=== PATIENT | female | born 1940 | race Caucasian/White ===

== ENCOUNTER → 2019-03-01 08:55 | Outpatient (CLI) | payer MEDICARE, SELFPAY ==
--- NOTE | 2019-03-01 09:10 | XR_ITS ---
XR DEXA axial skeleton HISTORY: ITS.REASON: H/O OSTEOPENIA ORDERING PHYSICIAN: Livia Armijo MD PATIENT AGE: 78 years COMPARISON: 01/01/2017 FINDINGS: The BMD measured at the Left femoral neck is 0.841 g/cm squared with a T score of -1.4. This is considered Osteopenic according to the World Health Organization criteria. Fracture risk is Moderate. Treatment is advised. The L1 L4 density has a T score of 0.2 and has decreased by 1.9%. The hip density has decreased by 1.1% IMPRESSION: Osteoporosis with moderate fracture risk. Recommend follow-up exam January 2021
== END ==
PROVIDERS: PCP Family Medicine; Visit Provider Family Medicine
DX: M81.0 Age-related osteoporosis without current pathological fracture (principal); M89.9 Disorder of bone, unspecified
CPT/HCPCS: 77080

== ENCOUNTER 2021-05-17 20:21 | Observation (INO) | payer MEDICARE, SELFPAY ==
[2021-05-17 20:15] VITALS: BP 114/69; PULSE 100; RESP 14; TEMP 36.9; O2SAT 94; BMI 31.2
--- NOTE | 2021-05-17 20:18 | ECG_ITS ---
APPROVED REPORT Exam: Resting ECG HR:90 bpm ECG Measurements Heart Rate 90 AXES MS 170 P 49 QRSd 100 QRS 13 QT 372 T 53 QTc 455 Conclusion Normal sinus rhythm Low voltage QRS Incomplete right bundle branch block Borderline ECG Electronically signed by : Jevon Tellez MD 05/19/2021 17:59:43
--- NOTE | 2021-05-17 20:29 | CT_ITS ---
PROCEDURE INFORMATION: Exam: CT Abdomen And Pelvis Without Contrast Exam date and time: 05/17/2021 8:29 PM Age: 80 years old Clinical indication: Vomiting and other: Bloody emesis; Prior surgery; Surgery date: 6+ months; Surgery type: Hysterectomy partial, gb, open heart; Additional info: Gi bleed TECHNIQUE: Imaging protocol: Computed tomography of the abdomen and pelvis without contrast. Radiation optimization: All CT scans at this facility use at least one of these dose optimization techniques: automated exposure control; mA and/or kV adjustment per patient size (includes targeted exams where dose is matched to clinical indication); or iterative reconstruction. COMPARISON: No relevant prior studies available. FINDINGS: Liver: Parenchymal enhancement is not evaluated without contrast. No hepatomegaly. Gallbladder and bile ducts: Post cholecystectomy change. Pancreas: Parenchymal enhancement is not evaluated without contrast. No ductal dilation. Spleen: Parenchymal enhancement is not evaluated without contrast. No splenomegaly. Adrenal glands: No mass. Kidneys and ureters: Parenchymal enhancement is not evaluated without contrast. No hydronephrosis. Stomach and bowel: Diverticulosis coli without evidence for diverticulitis. Appendix: No evidence of appendicitis. Intraperitoneal space: No free air. No significant fluid collection. Vasculature: Limited evaluation without contrast. No abdominal aortic aneurysm. Lymph nodes: No enlarged lymph nodes. Urinary bladder: No acute abnormality. Reproductive: Status post hysterectomy. Bones/joints: Degenerative changes of the spine. No fracture. Soft tissues: Limited evaluation without contrast. No significant soft tissue swelling. IMPRESSION: No acute findings. Incidental findings above.
[2021-05-17 20:39] LABS: Basophils # 0.2 K/mm3 (0-0.2); Basophils % 0.8 % (0.1-2.0); Eosinophils # 0.2 K/mm3 (0.0-0.4); Eosinophils % 0.6 % (0.1-12.0); Hematocrit 42.8 % (37.0-47.0); Hemoglobin 13.7 g/dL (12.2-16.2); Lymphocytes # 8.8 K/mm3 (0.7-4.5); Lymphocytes % 34.2 % (10-50); Mean Corpuscular HGB Conc 32.1 g/dL (31.8-35.4); Mean Corpuscular Hemoglobin 31.4 pg (27.0-31.2); Mean Corpuscular Volume 97.8 fl (81-99); Mean Platelet Volume 9.1 fl (7.4-10.4); Monocytes # 0.8 K/mm3 (0.1-1.0); Monocytes % 3.3 % (1.7-9.3); Neutrophils # 15.7 K/mm3 (1.8-7.8); Platelet Count 339 K/mm3 (142-424); Red Blood Count 4.38 M/mm3 (4.20-5.40); Red Cell Distribution Width 13.2 % (11.5-17.5)
[2021-05-17 20:40] LABS: Chloride 98 mmol/L (98-107); Potassium 4.2 mmoL/L (3.5-5.1); Sodium 134 mmol/L (136-145)
[2021-05-17 20:43] LABS: Alanine Aminotransferase 17 U/L (12-78); Albumin Level 4.1 g/dl (3.5-5.0); Albumin/Globulin Ratio 1.3 (1.1-1.8); Alkaline Phosphatase 87 U/L (38-126); Amylase 51 U/L (30-110); Anion Gap 20.2 mEq/L (5-15); Aspartate Amino Transferase 43 U/L (14-36); Bilirubin,Total 0.4 mg/dl (0.2-1.3); Blood Urea Nitrogen 42 mg/dl (7-17); Calcium 8.9 mg/dl (8.4-10.2); Carbon Dioxide 20 mmol/L (22.0-30.0); Creatinine Clearance Estimated 42 mL/min (50-200); Estimated Glomerular Filt Rate 39 ml/min (>60); GFR (African American) 48 ML/MIN (>60); Globulin 3.1 g/dL (1.3-3.2); Total Protein,Serum 7.2 g/dl (6.3-8.2)
[2021-05-17 20:44] LABS: MANUAL DIFFERENTIAL MANUAL DIFFERENTIAL (MANUAL DIFF); White Blood Count 25.8 K/mm3 (4.8-10.8)
[2021-05-17 20:45] LABS: Lipase 133 U/L (23-300)
[2021-05-17 20:47] LABS: Glucose 450 mg/dl (74-100)
[2021-05-17 20:48] LABS: Magnesium 1.9 mg/dl (1.6-2.3)
--- NOTE | 2021-05-17 20:54 | HMH.EDGIBL ---
ED Disposition Clinical Impression: UGIB (upper gastrointestinal bleed), Hypothyroidism (acquired), Obesity (BMI 30-39.9) Diabetes mellitus Qualifiers: Diabetes mellitus type: type 2 Diabetes mellitus longterm insulin use: unspecified intermediate teacher insulin use status Diabetes mellitus complication status: with other specified complication Qualified Code(s): E11.69 - Type 2 diabetes mellitus with other specified complication Disposition: Admitted as Observation Condition on Discharge: Good - Critical Care Critical Care Time: No Attestation: On 05/17/21, the high probability of a clinically significant, sudden or life threatening deterioration of the following system(s) required my full and direct attention, intervention and personal management. The time I documented below is in addition to time spent performing reported procedures but includes the following listed in this critical care notation. Medical Decision Making - Medical Records Medical records reviewed: Yes: I reviewed the patient's medical records. - Sandeep Inquiry Pt receiving controlled substance: No Vital Signs: 05/17/21 20:15 05/17/21 21:31 05/17/21 22:00 Temperature 98.4 F Temperature Source Oral Pulse Rate 88 86 Pulse Rate [Apical] 100 H Respiratory Rate 14 15 Blood Pressure 99/53 L 107/58 L Blood Pressure [Right Arm] 114/69 Blood Pressure Mean 68 72 Blood Pressure Mean [Right Arm] 84 Blood Pressure Source [Right Arm] Automatic Cuff Blood Pressure Position [Right Arm] Sitting 02 Sat by Pulse Oximetry 94 L 93 L 91 L Oxygen Delivery Method Room Air - Lab Data Lab results reviewed: Yes: I reviewed the patient's lab results. Lab Results 05/17/21 20:27: WBC 25.8 H*, RBC 4.38, Hgb 13.7, Hct 42.8, MCV 97.8, MCH 31.4 H, MCHC 32.1, RDW 13.2, Plt Count 339, MPV 9.1, Neut % (Auto) 61.0, Lymph % (Auto) 34.2, Gove % (Auto) 3.3, Eos % (Auto) 0.6, Baso % (Auto) 0.8, Neut # (Auto) 15.7 H, Lymph # (Auto) 8.8 H, Gove # (Auto) 0.8, Eos # (Auto) 0.2, Baso # (Auto) 0.2, Total Counted 100, Neutrophils % (Manual) 69, Band Neutrophils % 3.0, Lymphocytes % (Manual) 27, Monocytes % (Manual) 1 L, Platelet Estimate Normal, RBC Morphology Normal 05/17/21 20:27: Sodium 134 L, Potassium 4.2, Chloride 98, Carbon Dioxide 20 L, Anion Gap 20.2 H, BUN 42 H, Creatinine 1.30 H, Estimated Creat Clear 42, Estimated GFR 39 L, Est GFR ( Amer) 48 L, Glucose 450 H*, Calcium 8.9, Total Bilirubin 0.4, AST 43 H, ALT 17, Alkaline Phosphatase 87, Total Protein 7.2, Albumin 4.1, Globulin 3.1, Albumin/Globulin Ratio 1.3, Amylase 51 05/17/21 20:27: Troponin I 0.02, Lipase 133 05/17/21 20:27: Magnesium 1.9 05/17/21 20:27: Acetone Level None detected 05/17/21 20:27: Hemoglobin A1c 12.9 H 05/17/21 21:39: SARS-CoV-2 (PCR) Not detected, Influenza A Untype (PCR) Not detected, Influenza Type B (PCR) Not detected 05/17/21 23:01: POC Glucose 340 H* Result diagrams: 05/17/21 20:27 05/17/21 20:27 Orders (Tests/Meds): ED MEDICATIONS Generic Name Dose Route Start Last Admin Trade Name Freq PRN Reason Stop Dose Admin Pantoprazole Sodium 80 mg/ 100 mls @ 10 mls/hr 05/17/21 21:45 05/17/21 22:24 Sodium Chloride IV 05/20/21 21:44 Not Given .Q10H LOREE Discontinued Medications Generic Name Dose Route Start Last Admin Trade Name Freq PRN Reason Stop Dose Admin Pantoprazole Sodium 80 mg/ 100 mls @ 100 mls/hr 05/17/21 20:35 05/17/21 20:46 Sodium Chloride IV 05/17/21 21:34 100 mls/hr ONCE ONE Administration Insulin Human Lispro 5 unit 05/17/21 21:53 05/17/21 21:53 Humalog 100 Units/Ml 3ml Vial (Ssi) SQ 05/17/21 21:54 5 unit ONCE ONE Administration Metoclopramide HCl 10 mg 05/17/21 20:40 05/17/21 20:46 Metoclopramide Hcl 10mg/2ml Vial IVP 05/17/21 20:41 10 mg ONCE ONE Administration Ondansetron HCl 4 mg 05/17/21 20:36 05/17/21 20:46 Ondansetron 4mg/2ml Vial IV 05/17/21 20:37 4 mg ONCE ONE Administration ORDERS Ca
[2021-05-17 20:58] LABS: Troponin I 0.02 ng/ml (0.00-0.034)
[2021-05-17 21:04] LABS: Acetone, Serum (Rapid) None Detected (None Detect)
[2021-05-17 21:12] LABS: Lymphocytes % 27 % (10-50); Monocytes % 1 % (2-9); Neutrophils % 69 % (42-76); Platelet Estimate Normal; RBC Morphology Normal; Total Cells Counted 100
[2021-05-17 21:31] VITALS: BP 99/53; PULSE 88; O2SAT 93
[2021-05-17 21:51] LABS: Hemoglobin A1C 12.9 % (4.0-6.0)
[2021-05-17 22:00] VITALS: BP 107/58; PULSE 86; RESP 15; O2SAT 91
[2021-05-17 22:22] LABS: Coronavirus 19, PCR Not Detected (NotDetected); Influenza A, PCR Not Detected (NotDetected); Influenza B, PCR Not Detected (NotDetected)
--- NOTE | 2021-05-17 23:01 | XR_ITS ---
PROCEDURE INFORMATION: Exam: XR Chest Exam date and time: 05/17/2021 11:01 PM Age: 80 years old Clinical indication: Abnormal findings; Other: Elevated wbc TECHNIQUE: Imaging protocol: XR of the chest. Views: 1 view. COMPARISON: CR CXR1VP XR chest portable 11/10/2017 5:25 PM FINDINGS: Lungs: No consolidation. Pleural spaces: No pneumothorax. Heart/Mediastinum: Stable cardiac contours. Bones/joints: Median sternotomy wires. Degenerative changes of the shoulders. IMPRESSION: No acute findings.
[2021-05-17 23:16] LABS: Occult Blood,Stool Negative (Negative)
[2021-05-17 23:20] LABS: Microscopic, Urine URINE MICROSCOPIC (MICROSCOPIC)
[2021-05-17 23:21] LABS: Appearance,Urine CLEAR (Clear); Bilirubin,Urine Negative (Negative); Blood, Urine Negative (Negative); Color,Urine YELLOW (Yellow); Glucose,Urine (UA) 3+ (Negative); Ketones,Urine Negative (Negative); Leukocyte Esterase,Urine Negative (Negative); Nitrate,Urine Negative (Negative); PH,Urine 5.5 (5.0-8.5); Protein,Urine Negative (Negative); Urobilinogen,Urine 0.2 EU/dl (0.2)
[2021-05-17 23:22] LABS: POC Glucose,Bedside 340 (70-110)
[2021-05-17 23:27] VITALS: BP 121/71; PULSE 89; RESP 18; O2SAT 95
[2021-05-17 23:30] VITALS: BP 117/74; PULSE 89; RESP 16; O2SAT 95
[2021-05-18] VITALS (8 sets, daily range): BP systolic 102–143; BP diastolic 49–74; PULSE 76–91; RESP 17–22; TEMP 36.7–37.1; O2SAT 90–96; BMI 31.4
--- NOTE | 2021-05-18 01:29 | PC.NURSE ---
patient up to floor via wheelchair @ this time.
[2021-05-18 05:57] LABS: POC Glucose,Bedside 190 (70-110)
--- NOTE | 2021-05-18 06:11 | PC.NURSE ---
Patient is A&Ox4. Patient lung sounds are clear. She has not had any emesis episodes since arriving to the floor. She denies any nausea. She has no tenderness in her abdomen, bowel sounds are active in all quadrants. VSS, call light within reach, will continue to monitor.
--- NOTE | 2021-05-18 07:41 | PC.NURSE ---
Dr. Morales notified of consult
[2021-05-18 08:21] LABS: Basophils # 0.1 K/mm3 (0-0.2); Basophils % 0.9 % (0.1-2.0); Eosinophils # 0.1 K/mm3 (0.0-0.4); Eosinophils % 0.5 % (0.1-12.0); Hematocrit 35.2 % (37.0-47.0); Lymphocytes # 3.1 K/mm3 (0.7-4.5); Lymphocytes % 25.2 % (10-50); Mean Corpuscular HGB Conc 32.9 g/dL (31.8-35.4); Mean Corpuscular Hemoglobin 31.3 pg (27.0-31.2); Mean Corpuscular Volume 95.2 fl (81-99); Monocytes # 0.4 K/mm3 (0.1-1.0); Monocytes % 3.5 % (1.7-9.3); Neutrophils # 8.4 K/mm3 (1.8-7.8); Neutrophils % 69.8 % (37.0-80.0); Platelet Count 229 K/mm3 (142-424); Red Cell Distribution Width 13.2 % (11.5-17.5); White Blood Count 12.1 K/mm3 (4.8-10.8)
[2021-05-18 08:22] LABS: Chloride 105 mmol/L (98-107); Hemoglobin 11.6 g/dL (12.2-16.2)
[2021-05-18 08:23] LABS: Potassium 4.4 mmoL/L (3.5-5.1); Sodium 141 mmol/L (136-145)
[2021-05-18 08:25] LABS: Blood Urea Nitrogen 43 mg/dl (7-17); Creatinine Clearance Estimated 43 mL/min (50-200); Estimated Glomerular Filt Rate 39 ml/min (>60); GFR (African American) 48 ML/MIN (>60)
[2021-05-18 08:26] LABS: Anion Gap 10.4 mEq/L (5-15); Calcium 8.6 mg/dl (8.4-10.2); Carbon Dioxide 30 mmol/L (22.0-30.0); Chol/HDL Ratio 4.4 (1-3.5); Cholesterol 141 mg/dl (140-200); Glucose 167 mg/dl (74-100); HDL Cholesterol 32 mg/dl (40-60); Magnesium 1.9 mg/dl (1.6-2.3); Triglycerides 123 mg/dl (30-150); VLDL Cholesterol 25 mg/dL (0-40)
[2021-05-18 08:37] LABS: Direct LDL Cholesterol 84.18 mg/dL (100-129)
--- NOTE | 2021-05-18 09:21 | HMH.GSCON ---
*Admission Date: 05/18/21 *Reason for consult:: Vomited Blood *History of present illness: An 80-year-old female diabetic who states that she had eaten navy beans and cornbread yesterday evening which resulted in some gassiness and bloating with nausea. She developed abdominal cramping and had a bowel movement. She tried to drink a Pepsi and took some PeptoBismol. She had developed vomiting and had an occurrence of reported bloody emesis. She describes this as dark blood. She has felt somewhat weak. No prior episodes. She was evaluated in the emergency department. Laboratory studies were notable for white blood cell count of 25,900. Hemoglobin 13.7 with hematocrit of 42. Repeat CBC this morning reveals white blood cell count of 12,000 with a hematocrit of 35 and a hemoglobin of 11.7. BUN and creatinine are 42 and 1.3. HemoGlobin A1c of 12.9. She did have a CT scan which was negative for any acute process. Review of Systems - Review of Systems Review of systems:: pertinent systems reviewed and negative unless documented below - *Neurologic Denies dizziness, Denies headache(s), Denies seizure-like activity [facility] History Medical History: Reports:: Coronary Artery Disease, Diabetes Mellitus Type 2, Hyperlipidemia, Hypertension, Myocardial Infarction (2001) Denies:: Cancer, Diabetes Mellitus Type 1, MRSA *Have you ever received a pneumonia vaccine?: Yes *Have you received a flu vaccine this season?: Yes Other Medical History: Reports: Cataracts (2000), Hypothyroidism Laterality Cases: Bilateral: Cataract Other Surgeries: Yes: CABG, Cardiac Catheterization, Cardiac Surgery, Cholecystectomy, Colonoscopy, Hysterectomy-Partial, Open Heart Surgery Amputation: No Fractures: No - *Social History Last grade of school completed: 7th or 8th Smoking Status: Former smoker Tobacco Type: cigarettes # Packs/Day (cigarettes): 1 #Yrs smoked (if former smoker): 40 Smoking End Date: 1987 Alcohol Intake: never *Occupational Status:: retired Housing: house Household Members: none *Travel in the last 8 weeks: None Family Hx:: Cancer, Diabetes, Heart Attack, Hyperlipidemia, Hypertension, Kidney Disease, Other Meds Home Medications Medication Instructions Recorded Confirmed Type Albuterol Sulfate [Albuterol HFA 1 puffs IH Q4HP PRN 11/10/17 05/18/21 History Inhaler] Gabapentin [Gabapentin 100mg Cap] 100 mg PO HS 11/10/17 05/18/21 History Insulin Glargine,Hum.rec.anlog 40 unit SQ HS 11/10/17 05/18/21 History [Lantus Insulin 100units/mL 10mL vial] Levothyroxine Sodium 100 mg PO DAILY 11/10/17 05/18/21 History [Levothyroxine 100mcg (0.1MG) Tab] Liraglutide [Victoza 2-Stephen] 0.6 mg SQ DAILY 11/10/17 05/18/21 History Metoprolol Succinate 25 mg PO DAILY 11/10/17 05/18/21 History Montelukast Sodium [Singulair 10mg 10 mg PO HS 11/10/17 05/18/21 History tablet] Potassium Chloride [Klor-con 20 20 meq PO DAILY 11/10/17 05/18/21 History mEq tablet] Pravastatin Sodium [Pravachol 40mg 40 mg PO HS 11/10/17 05/18/21 History Tablet] Aspirin [Adult Low Dose Aspirin EC] 81 mg PO DAILY 05/18/21 05/18/21 History C,E,Zinc,Copper 11/Pfqhi8i/Lut 1 each PO DAILY 05/18/21 05/18/21 History [Ocuvite Adult 50 Plus Softgel] Cholecalciferol (Vitamin D3) 50 mcg PO DAILY 05/18/21 05/18/21 History [Vitamin D3] Empagliflozin [Jardiance] 10 mg PO DAILY 05/18/21 05/18/21 History Famotidine [Pepcid] 20 mg PO DAILY 05/18/21 05/18/21 History Furosemide [Furosemide 20mg Tab*] 20 mg PO DAILY 05/18/21 05/18/21 History Indomethacin 25 mg PO TID PRN 05/18/21 05/18/21 History Lactobacillus Combo No.10 1 each PO DAILY 05/18/21 05/18/21 History [Probiotic] Loratadine [Claritin] 10 mg PO DAILY 05/18/21 05/18/21 History lisinopriL [Lisinopril] 2.5 mg PO DAILY 05/18/21 05/18/21 History Allergies Allergy/AdvReac Type Severity Reaction Status Date / Time NO KNOWN ALLERGIES Allergy Uncoded 07/20/17 14:49 Exam Vital signs and Labs for L
--- NOTE | 2021-05-18 10:00 | HMH.HP ---
*Admission Date: 05/18/21 *Chief complaint: vomiting blood *History of present illness: this patient presented to the ed with abd pain and episode of vomited blood - described as bright red- no melena and no prev episodes and no anticoagulation agent - pt has diabetes and was found to have no abn on abd ct but admitted for eval and surg consult - [facility] History I have reviewed the patient's past medical history: Yes Medical History: Reports:: Coronary Artery Disease, Diabetes Mellitus Type 2, Hyperlipidemia, Hypertension, Myocardial Infarction (2001) Denies:: Cancer, Diabetes Mellitus Type 1, MRSA *Have you ever received a pneumonia vaccine?: Yes *Have you received a flu vaccine this season?: Yes Other Medical History: Reports: Cataracts (2000), Hypothyroidism Laterality Cases: Bilateral: Cataract Other Surgeries: Yes: CABG, Cardiac Catheterization, Cardiac Surgery, Cholecystectomy, Colonoscopy, Hysterectomy-Partial, Open Heart Surgery Amputation: No Fractures: No - *Social History Last grade of school completed: 7th or 8th Smoking Status: Former smoker Tobacco Type: cigarettes # Packs/Day (cigarettes): 1 #Yrs smoked (if former smoker): 40 Smoking End Date: 1987 Alcohol Intake: never *Occupational Status:: retired Housing: house Household Members: none *Travel in the last 8 weeks: None Family Hx:: Cancer, Diabetes, Heart Attack, Hyperlipidemia, Hypertension, Kidney Disease, Other Review of Systems - Review of Systems Review of systems:: pertinent systems reviewed and negative unless documented below - Constitutional Denies fever(s) - Eyes Denies change in vision - ENT Denies dizziness, Denies sore throat - *Cardiovascular Denies chest pain - *Respiratory Denies cough - *Gastrointestinal Reports abdominal pain, Reports vomiting blood, Reports vomiting, Denies black, tarry stools - *Genitourinary Denies blood in urine - *Musculoskeletal Denies joint pain - Integumentary/Breasts Denies rash - *Neurologic Denies dizziness, Denies headache(s), Denies seizure-like activity - Psychiatric Denies confusion Meds Home Medications Medication Instructions Recorded Confirmed Type Albuterol Sulfate [Albuterol HFA 1 puffs IH Q4HP PRN 11/10/17 05/18/21 History Inhaler] Gabapentin [Gabapentin 100mg Cap] 100 mg PO HS 11/10/17 05/18/21 History Insulin Glargine,Hum.rec.anlog 40 unit SQ HS 11/10/17 05/18/21 History [Lantus Insulin 100units/mL 10mL vial] Levothyroxine Sodium 100 mg PO DAILY 11/10/17 05/18/21 History [Levothyroxine 100mcg (0.1MG) Tab] Liraglutide [Victoza 2-Stephen] 0.6 mg SQ DAILY 11/10/17 05/18/21 History Montelukast Sodium [Singulair 10mg 10 mg PO HS 11/10/17 05/18/21 History tablet] Potassium Chloride [Klor-con 20 20 meq PO DAILY 11/10/17 05/18/21 History mEq tablet] Pravastatin Sodium [Pravachol 40mg 40 mg PO HS 11/10/17 05/18/21 History Tablet] Aspirin [Adult Low Dose Aspirin EC] 81 mg PO DAILY 05/18/21 05/18/21 History C,E,Zinc,Copper 11/Phvnt7w/Lut 1 each PO DAILY 05/18/21 05/18/21 History [Ocuvite Adult 50 Plus Softgel] Cholecalciferol (Vitamin D3) 50 mcg PO DAILY 05/18/21 05/18/21 History [Vitamin D3] Empagliflozin [Jardiance] 10 mg PO DAILY 05/18/21 05/18/21 History Famotidine [Pepcid] 20 mg PO DAILY 05/18/21 05/18/21 History Furosemide [Furosemide 20mg Tab*] 20 mg PO DAILY 05/18/21 05/18/21 History Indomethacin 25 mg PO TID PRN 05/18/21 05/18/21 History Lactobacillus Combo No.10 1 each PO DAILY 05/18/21 05/18/21 History [Probiotic] Loratadine [Claritin] 10 mg PO DAILY 05/18/21 05/18/21 History Metoprolol Succinate [Metoprolol 25 mg PO DAILY 05/18/21 05/18/21 History Succinate 25mg Tablet*] lisinopriL [Lisinopril] 2.5 mg PO DAILY 05/18/21 05/18/21 History Allergies Allergy/AdvReac Type Severity Reaction Status Date / Time NO KNOWN ALLERGIES Allergy Uncoded 07/20/17 14:49 Exam Vital signs and Labs for Last 24 Hours:
[2021-05-18 11:30] LABS: POC Glucose,Bedside 183 (70-110)
[2021-05-18 16:16] LABS: POC Glucose,Bedside 214 (70-110)
--- NOTE | 2021-05-18 16:25 | HMH.PHAVTE ---
[facility] Pharmacy VTE Monitoring - Patient Demographics Admission date: 05/18/21 Report Date: 05/18/21 Time: 16:25 Allergies/Adverse Reactions: Patient Allergies NO KNOWN ALLERGIES Allergy (Uncoded 07/20/17 14:49) Height: 1.57 m Weight: 78.018 kg Patient Problems: Current Active Problems UGIB (upper gastrointestinal bleed) (Acute) Diabetes mellitus (Acute) Hypothyroidism (acquired) (Acute) Obesity (BMI 30-39.9) (Acute) - VTE Risk Labs: VTE Related Lab Results Hgb 11.6 g/dL (12.2-16.2) L D 05/18/21 07:28 Hct 35.2 % (37.0-47.0) L 05/18/21 07:28 Plt Count 229 K/mm3 (142-424) D 05/18/21 07:28 BUN 43 mg/dl (7-17) H 05/18/21 07:28 Creatinine 1.30 mg/dl (0.52-1.04) H 05/18/21 07:28 Estimated Creat Clear 43 mL/min (50-200) 05/18/21 07:28 Was VTE Risk Assessment Performed: Yes VTE Score: 7 VTE Risk Level: Moderate Risk - Prophylaxis Types of VTE Prophylaxis: TEDS Knee High Location of Applied Device: Bilateral Lower Extremeties (PARRISH HOSE ORDERED), Not Applicable
[2021-05-18 20:41] LABS: POC Glucose,Bedside 209 (70-110)
[2021-05-19] VITALS (17 sets, daily range): BP systolic 98–124; BP diastolic 50–84; PULSE 68–81; RESP 15–118; TEMP 36.1–37.1; O2SAT 91–100; BMI 30.8
[2021-05-19 00:28] LABS: POC Glucose,Bedside 69 (70-110)
[2021-05-19 00:47] LABS: POC Glucose,Bedside 90 (70-110)
[2021-05-19 00:47] LABS: POC Glucose,Bedside 102 (70-110)
--- NOTE | 2021-05-19 03:59 | PC.NURSE ---
Patient is A&Ox4. She has rested well this shift. At around midnight, patient had complaints of her blood sugar dropping. This RN checked on the patient observed that she was diaphoretic and shaky. Patient was given orange juice and apple juice. Patient's starting blood sugar was 69 after the orange juice it was increasing. Patient has had no complaints since of sweating or shakiness. Her last PO intake was at 0045 due to blood sugar control. Patient has bilateral 18g IV in her AC with NS infusing in her RAC at 75 ml/hr. VSS, call light within reach, will continue to monitor. A stool occult has not been obtained due to patient not having a BM thus far in the shift.
[2021-05-19 06:15] LABS: POC Glucose,Bedside 208 (70-110)
--- NOTE | 2021-05-19 06:59 | PC.NURSE ---
patient off floor for EGD @ this time.
[2021-05-19 07:11] LABS: Basophils # 0.1 K/mm3 (0-0.2); Basophils % 0.5 % (0.1-2.0); Eosinophils # 0.2 K/mm3 (0.0-0.4); Eosinophils % 1.2 % (0.1-12.0); Hematocrit 36.5 % (37.0-47.0); Hemoglobin 11.8 g/dL (12.2-16.2); Lymphocytes # 4.6 K/mm3 (0.7-4.5); Lymphocytes % 34.8 % (10-50); Mean Corpuscular HGB Conc 32.4 g/dL (31.8-35.4); Mean Corpuscular Hemoglobin 31.5 pg (27.0-31.2); Mean Corpuscular Volume 97.2 fl (81-99); Mean Platelet Volume 7.7 fl (7.4-10.4); Monocytes # 0.4 K/mm3 (0.1-1.0); Neutrophils # 7.9 K/mm3 (1.8-7.8); Neutrophils % 60.5 % (37.0-80.0); Platelet Count 265 K/mm3 (142-424); Red Blood Count 3.76 M/mm3 (4.20-5.40); Red Cell Distribution Width 12.8 % (11.5-17.5); White Blood Count 13.1 K/mm3 (4.8-10.8)
[2021-05-19 07:21] LABS: Chloride 104 mmol/L (98-107); Sodium 136 mmol/L (136-145)
[2021-05-19 07:22] LABS: Potassium 4.9 mmoL/L (3.5-5.1)
[2021-05-19 07:24] LABS: Blood Urea Nitrogen 29 mg/dl (7-17); Creatinine Clearance Estimated 49 mL/min (50-200); Estimated Glomerular Filt Rate 48 ml/min (>60); GFR (African American) 58 ML/MIN (>60)
[2021-05-19 07:25] LABS: Anion Gap 11.9 mEq/L (5-15); Calcium 8.2 mg/dl (8.4-10.2); Carbon Dioxide 25 mmol/L (22.0-30.0); Glucose 212 mg/dl (74-100)
--- NOTE | 2021-05-19 08:10 | HMH.SCOPE ---
- Procedure: Date: 05/19/21 Patient Date of :: 1940 Procedure Performed:: Esophagogastroduodenoscopy with biopsies Indications:: An 80-year-old female diabetic who states that she had eaten navy beans and cornbread on 05/17/2021 which resulted in some gassiness and bloating with nausea. She states that beans usually cause her GI distress. After she had eaten beans she developed abdominal cramping and had a bowel movement. She tried to drink a Pepsi and took some PeptoBismol. She had developed vomiting and had an occurrence of reported bloody emesis. She describes this as dark blood. She has felt somewhat weak. No prior episodes. She was evaluated in the emergency department. Laboratory studies were notable for white blood cell count of 25,900. Hemoglobin 13.7 with hematocrit of 42. Repeat CBC yesterday morning reveals white blood cell count of 12,000 with a hematocrit of 35 and a hemoglobin of 11.7. BUN and creatinine are 42 and 1.3. HemoGlobin A1c of 12.9. She did have a CT scan which was negative for any acute process. Plan was for upper endoscopy. Performing Provider:: Aki Morales MD Referring Provider:: Alejandro Ghotra MD Sedation:: MAC sedation Procedure:: Consent was obtained and patient was taken to endoscopy procedure room. She was positioned in lateral decubitus position. Adequate intravenous sedation was achieved with anesthesia titration of propofol. Olympus endoscope was inserted via the oropharynx. Esophagus was cannulated. Esophagus overall appeared relatively unremarkable. Gastroesophageal junction was encountered at 38 cm from the incisors. There was some inflamed mucosa at the gastroesophageal junction consistent with recent hematemesis. No definite Vonnie-Jackson tear. No active bleeding. Stomach was cannulated and insufflated. Retroflexion revealed small sliding hiatal hernia. Remainder of the stomach appeared unremarkable. Pylorus was traversed. Endoscope was advanced into the duodenum. Duodenal bulb and duodenal sweep appeared unremarkable. Endoscope was withdrawn into the stomach. Gastric antral mucosal biopsy was obtained. A couple of biopsies were obtained at the gastroesophageal junction to assess the hypertrophic inflamed mucosa. Endoscope was withdrawn. Findings:: Gastroesophageal junction at 38 cm from the incisors Inflamed tissue at gastroesophageal junction consistent with recent vomiting and hematemesis. No definite Vonnie-Jackson tear. No active bleeding. Recommendations:: I will go ahead and start the patient on a diet. Continue proton pump inhibitors. Complications:: None immediately apparent Estimated blood obtained (mL): 1
--- NOTE | 2021-05-19 08:23 | HMH.ANESCL ---
[facility] Anesthesia Checklist - Patient Identification Patient Identification: Arm Band, Verbal (Name & ) - Structural Data Admitted From: Inpatient Planned Operative Procedure/s: EGD Consent for Planned Operative Procedure(s) Verified: Yes Verified Documents: Surgical Consent - NPO Status Verified Time NPO: 00:30 - Chart Verification Results Verified: CBC - Cardiovascular Assessment Heart Sounds: S1 & S2 - Airway Assessment C-Spine Mobility Assessed: Yes TMJ Mobility Assessed: Yes Dentition: Edentulous - Neurological Assessment Level of Consciousness: Awake, Alert, Appropriate - Anesthesia Plan Anesthesia Risk discussed: Yes ASA Class: III Anesthesia Type: General [facility] History I have reviewed the patient's past medical history: Yes Medical History: Reports:: Coronary Artery Disease, Diabetes Mellitus Type 2, Hyperlipidemia, Hypertension, Myocardial Infarction (2001) Denies:: Cancer, Diabetes Mellitus Type 1, MRSA *Have you ever received a pneumonia vaccine?: Yes *Have you received a flu vaccine this season?: Yes Other Medical History: Reports: Cataracts (2000), Hypothyroidism Anesthesia experience/problems:: no issues Laterality Cases: Bilateral: Cataract Other Surgeries: Yes: CABG, Cardiac Catheterization, Cardiac Surgery, Cholecystectomy, Colonoscopy, Hysterectomy-Partial, Open Heart Surgery Amputation: No Fractures: No - *Social History Last grade of school completed: 7th or 8th Smoking Status: Former smoker Tobacco Type: cigarettes # Packs/Day (cigarettes): 1 #Yrs smoked (if former smoker): 40 Smoking End Date: 1987 Alcohol Intake: never Substance Use Type: denies use *Occupational Status:: retired Housing: house Household Members: none *Travel in the last 8 weeks: None Family Hx:: Cancer, Diabetes, Heart Attack, Hyperlipidemia, Hypertension, Kidney Disease, Other
[2021-05-19 11:25] LABS: POC Glucose,Bedside 144 (70-110)
--- NOTE | 2021-05-19 16:01 | PC.NURSE ---
Patient is non tele and on room air. Patient has bronchoscopy this am, tolerated well. Patient is up with standby assist. Occult stool still needs to be obtained, no bowel movement today. Bed in lowest position and phone and call light in reach.
[2021-05-19 16:40] LABS: POC Glucose,Bedside 218 (70-110)
--- NOTE | 2021-05-19 19:04 | HMH.ACPN2 ---
Internal Medicine - PN: Subj *Date: 05/19/21 *Time: 17:00 Interval history: pt sitting up in bed, pt states she is doing well no issues at this time Exam Vital signs and Labs for Last 24 Hours: Temp Pulse Resp BP Pulse Ox 98.0 F 74 20 114/66 97 05/19/21 15:09 05/19/21 15:09 05/19/21 15:09 05/19/21 15:09 05/19/21 15:09 Laboratory Results - last 24 hr 05/18/21 20:18: POC Glucose 209 H 05/19/21 00:21: POC Glucose 69 L 05/19/21 00:32: POC Glucose 90 05/19/21 00:40: POC Glucose 102 05/19/21 06:04: POC Glucose 208 H 05/19/21 06:45: WBC 13.1 H, RBC 3.76 L, Hgb 11.8 L, Hct 36.5 L, MCV 97.2, MCH 31.5 H, MCHC 32.4, RDW 12.8, Plt Count 265, MPV 7.7, Neut % (Auto) 60.5, Lymph % (Auto) 34.8, [place] % (Auto) 3.0, Eos % (Auto) 1.2, Baso % (Auto) 0.5, Neut # (Auto) 7.9 H, Lymph # (Auto) 4.6 H, [place] # (Auto) 0.4, Eos # (Auto) 0.2, Baso # (Auto) 0.1 05/19/21 06:45: Sodium 136, Potassium 4.9, Chloride 104, Carbon Dioxide 25, Anion Gap 11.9, BUN 29 H D, Creatinine 1.10 H, Estimated Creat Clear 49, Estimated GFR 48 L, Est GFR ( Amer) 58 L D, Glucose 212 H D, Calcium 8.2 L 05/19/21 11:08: POC Glucose 144 H 05/19/21 16:22: POC Glucose 218 H I & O for Last 24 hours: Intake & Output 05/17/21 05/18/21 05/19/21 05/20/21 11:59 11:59 11:59 11:59 Intake Total 0 / 0 1280 / 1280 840 / 840 Balance 0 / 0 1280 / 1280 840 / 840 Weight 172 lb 167 lb 8.821 oz - Constitutional no acute distress - *Routine HEENT Exam Head: Present: normocephalic Eye: Present: PERRL ENT: Present: mucous membranes moist - *Routine Neck Exam Present: supple. Absent: lymphadenopathy - *Routine Respiratory Exam Present: CTA bilaterally - *Routine Cardiovascular Exam Present: RRR - *Routine Abdominal Exam Present: soft, normoactive bowel sounds. Absent: tenderness - *Routine Extremities Exam Absent: cyanosis, clubbing, edema - *Routine Skin Exam Present: warm. Absent: rash - *Routine Neurological Exam Present: alert, oriented X3 Assessment and Plan (1) UGIB (upper gastrointestinal bleed) Status: Acute Category: Medical Code(s): K92.2 - Gastrointestinal hemorrhage, unspecified (2) Diabetes mellitus Status: Acute Qualifiers: Diabetes mellitus type: type 2 Diabetes mellitus dean of admissions insulin use: unspecified dean of admissions insulin use status Diabetes mellitus complication status: with other specified complication Qualified Code(s): E11.69 - Type 2 diabetes mellitus with other specified complication Category: Medical Code(s): E11.9 - Type 2 diabetes mellitus without complications (3) Hypothyroidism (acquired) Status: Acute Category: Medical Code(s): E03.9 - Hypothyroidism, unspecified (4) Obesity (BMI 30-39.9) Status: Acute Category: Medical Code(s): E66.9 - Obesity, unspecified (5) Renal insufficiency Status: Acute Category: Medical Code(s): N28.9 - Disorder of kidney and ureter, unspecified (6) Leukocytosis, unspecified Status: Acute Qualifiers: Leukocytosis type: unspecified Qualified Code(s): D72.829 - Elevated white blood cell count, unspecified Category: Medical Code(s): D72.829 - Elevated white blood cell count, unspecified - Assessment and plan all Dx Assessment and Plan for all problems:: rounded with dr rodriguez all orders per dr rodriguez poss de home in am
[2021-05-19 21:54] LABS: POC Glucose,Bedside 267 (70-110)
[2021-05-20] VITALS: BP 108/47; PULSE 78; RESP 16; TEMP 36.8; O2SAT 96
[2021-05-20 04:00] VITALS: BP 124/68; PULSE 83; RESP 17; TEMP 37.1; O2SAT 96
[2021-05-20 05:00] VITALS: BMI 31.3
[2021-05-20 06:16] LABS: POC Glucose,Bedside 293 (70-110)
[2021-05-20 07:27] LABS: Chloride 107 mmol/L (98-107); Sodium 136 mmol/L (136-145)
[2021-05-20 07:28] LABS: Potassium 4.5 mmoL/L (3.5-5.1)
[2021-05-20 07:30] LABS: Anion Gap 10.5 mEq/L (5-15); Blood Urea Nitrogen 25 mg/dl (7-17); Carbon Dioxide 23 mmol/L (22.0-30.0); Creatinine Clearance Estimated 50 mL/min (50-200); Estimated Glomerular Filt Rate 48 ml/min (>60); GFR (African American) 58 ML/MIN (>60)
[2021-05-20 07:31] LABS: Calcium 7.5 mg/dl (8.4-10.2); Glucose 264 mg/dl (74-100)
[2021-05-20 07:32] LABS: Basophils % 0.5 % (0.1-2.0); Eosinophils # 0.2 K/mm3 (0.0-0.4); Eosinophils % 2.4 % (0.1-12.0); Hematocrit 30.1 % (37.0-47.0); Lymphocytes # 2.3 K/mm3 (0.7-4.5); Lymphocytes % 31.2 % (10-50); Mean Corpuscular HGB Conc 32.6 g/dL (31.8-35.4); Mean Corpuscular Hemoglobin 31.6 pg (27.0-31.2); Mean Corpuscular Volume 96.9 fl (81-99); Mean Platelet Volume 7.4 fl (7.4-10.4); Monocytes # 0.3 K/mm3 (0.1-1.0); Monocytes % 4.3 % (1.7-9.3); Neutrophils # 4.6 K/mm3 (1.8-7.8); Neutrophils % 61.6 % (37.0-80.0); Platelet Count 163 K/mm3 (142-424); Red Blood Count 3.11 M/mm3 (4.20-5.40); Red Cell Distribution Width 12.7 % (11.5-17.5); White Blood Count 7.5 K/mm3 (4.8-10.8)
[2021-05-20 08:00] VITALS: BP 118/57; PULSE 77; RESP 15; TEMP 36.5; O2SAT 94
[2021-05-20 08:07] LABS: Hemoglobin 9.8 g/dL (12.2-16.2)
--- NOTE | 2021-05-20 09:08 | HMH.DCSUM ---
General - General Admission date:: 05/18/21 Discharge date: 05/20/21 HPI HPI: this patient presented to the ed with abd pain and episode of vomited blood - described as bright red- no melena and no prev episodes and no anticoagulation agent - pt has diabetes and was found to have no abn on abd ct but admitted for eval and surg consult - Hospital Course Hospital Course: Female patient presented to the [facility] emergency department with complaints of bloody emesis. She reports having eaten leaving cornbread day before and feeling some bloating, gassiness, and nausea. She started having abdominal cramping and had a normal bowel movement. She then took some Pepto-Bismol and drank a Pepsi. Her emesis was described as dark red blood she reported feeling weak. White blood cell count was 25,900. H/H stable at 13.7/42 BUN 42 and creatinine 1.3. She was admitted and general surgery was consulted 05/17/21 Abd/Pelvis CT: FINDINGS: Liver: Parenchymal enhancement is not evaluated without contrast. No hepatomegaly. Gallbladder and bile ducts: Post cholecystectomy change. Pancreas: Parenchymal enhancement is not evaluated without contrast. No ductal dilation. Spleen: Parenchymal enhancement is not evaluated without contrast. No splenomegaly. Adrenal glands: No mass. Kidneys and ureters: Parenchymal enhancement is not evaluated without contrast. No hydronephrosis. Stomach and bowel: Diverticulosis coli without evidence for diverticulitis. Appendix: No evidence of appendicitis. Intraperitoneal space: No free air. No significant fluid collection. Vasculature: Limited evaluation without contrast. No abdominal aortic aneurysm. Lymph nodes: No enlarged lymph nodes. Urinary bladder: No acute abnormality. Reproductive: Status post hysterectomy. Bones/joints: Degenerative changes of the spine. No fracture. Soft tissues: Limited evaluation without contrast. No significant soft tissue swelling. IMPRESSION: No acute findings. Incidental findings above. Electronically signed by Willie Hernandez MD 05/17/21 CXR: FINDINGS: Lungs: No consolidation. Pleural spaces: No pneumothorax. Heart/Mediastinum: Stable cardiac contours. Bones/joints: Median sternotomy wires. Degenerative changes of the shoulders. IMPRESSION: No acute findings. Electronically signed by Willie Hernandez MD 05/19/21: Procedure:: Consent was obtained and patient was taken to endoscopy procedure room. She was positioned in lateral decubitus position. Adequate intravenous sedation was achieved with anesthesia titration of propofol. Olympus endoscope was inserted via the oropharynx. Esophagus was cannulated. Esophagus overall appeared relatively unremarkable. Gastroesophageal junction was encountered at 38 cm from the incisors. There was some inflamed mucosa at the gastroesophageal junction consistent with recent hematemesis. No definite Vonnie-Jackson tear. No active bleeding. Stomach was cannulated and insufflated. Retroflexion revealed small sliding hiatal hernia. Remainder of the stomach appeared unremarkable. Pylorus was traversed. Endoscope was advanced into the duodenum. Duodenal bulb and duodenal sweep appeared unremarkable. Endoscope was withdrawn into the stomach. Gastric antral mucosal biopsy was obtained. A couple of biopsies were obtained at the gastroesophageal junction to assess the hypertrophic inflamed mucosa. Endoscope was withdrawn. Findings:: Gastroesophageal junction at 38 cm from the incisors Inflamed tissue at gastroesophageal junction consistent with recent vomiting and hematemesis. No definite Vonnie-Jackson tear. No active bleeding. Recommendations:: I will go ahead and start the patient on a diet. Continue proton pump inhibitors. 80-year-old female patient sitting up in chair resting quietly, she denies any abdominal pain, nausea/vomiting/diarrhea, or any visible bl
--- NOTE | 2021-05-20 10:24 | HMH.PHAINT ---
MEDICATION DISCHARGE EDUCATION COMPLETE. PATIENT DID NOT HAVE ANY QUESTIONS
== END 2021-05-20 11:32 | disposition home or self-care (01) ==
LOC: ER 21:43 → 2ND 23:12
PROVIDERS: Nurse Practitioner Family; Surgery; Admitting Provider Emergency Medicine; Emergency Provider Emergency Medicine; PCP Family Medicine; Visit Provider Emergency Medicine
PROC: 0DJ08ZZ Inspection of Upper Intestinal Tract, Via Natural or Artificial Opening Endoscopic (ICD-10-PCS; CPT 43235; principal; 2021-05-19 08:00)
DX: K92.2 Gastrointestinal hemorrhage, unspecified (principal); E11.9 Type 2 diabetes mellitus without complications; Z79.4 Long term (current) use of insulin; I25.10 Atherosclerotic heart disease of native coronary artery without angina pectoris; I10 Essential (primary) hypertension; Z95.1 Presence of aortocoronary bypass graft; Z79.899 Other long term (current) drug therapy; E03.9 Hypothyroidism, unspecified; Z87.891 Personal history of nicotine dependence; Z20.822 Contact with and (suspected) exposure to COVID-19
CPT/HCPCS: 43239; G0378; 36415; 71045; 74176; 80048; 80053; 80061; 81001; 82009; 82150; 82272; 82962; 83036; 83690; 83735; 84484; 85007; 85025; 88305; 88312; 88313; 93005; 96374; 96375; 99284; C9803; G0328; J2405; U0003; U0005

== ENCOUNTER → 2021-05-26 18:15 | Outpatient (CLI) | payer MEDICARE, SELFPAY ==
[2021-05-26 19:02] LABS: Basophils # 0.1 K/mm3 (0-0.2); Basophils % 0.5 % (0.1-2.0); Eosinophils # 0.2 K/mm3 (0.0-0.4); Eosinophils % 1.7 % (0.1-12.0); Hematocrit 36.8 % (37.0-47.0); Lymphocytes # 3.8 K/mm3 (0.7-4.5); Lymphocytes % 34.5 % (10-50); Mean Corpuscular HGB Conc 32.6 g/dL (31.8-35.4); Mean Corpuscular Hemoglobin 31.7 pg (27.0-31.2); Mean Corpuscular Volume 97.2 fl (81-99); Mean Platelet Volume 8.3 fl (7.4-10.4); Monocytes # 0.5 K/mm3 (0.1-1.0); Monocytes % 4.2 % (1.7-9.3); Neutrophils # 6.5 K/mm3 (1.8-7.8); Neutrophils % 59.1 % (37.0-80.0); Platelet Count 334 K/mm3 (142-424); Red Blood Count 3.79 M/mm3 (4.20-5.40)
[2021-05-26 19:29] LABS: Hemoglobin A1C 8.6 % (4.0-6.0)
== END ==
PROVIDERS: Visit Provider Nurse Practitioner Family
DX: E11.9 Type 2 diabetes mellitus without complications (principal); R58 Hemorrhage, not elsewhere classified; Z79.4 Long term (current) use of insulin
CPT/HCPCS: 83036; 85025

== ENCOUNTER → 2021-09-29 11:52 | Outpatient (CLI) | payer MEDICARE, MEDICAID, SELFPAY ==
--- NOTE | 2021-09-29 11:59 | XR_ITS ---
FINAL REPORT CLINICAL HISTORY: Pneumonia Hx of open heart 2001 COMPARISON: May 17, 2021 FINDINGS: Two views of the chest were obtained. The heart size and pulmonary vascularity are within normal limits. Patient is status post median sternotomy. There is mild left lung base atelectasis or scarring. There is no pneumothorax. The bony thorax is intact. IMPRESSION: Mild left lung base atelectasis or scarring. Reviewed, Interpreted and Dictated by Aki Hartman III, MD Transcribed by NABILA Crowder Authenticated by Aki Hartman III, MD on 09/29/2021 12:48:02 PM [facility]
== END ==
PROVIDERS: PCP Nurse Practitioner Family; Visit Provider Nurse Practitioner Family
DX: J18.9 Pneumonia, unspecified organism (principal)
CPT/HCPCS: 71046

== ENCOUNTER → 2021-12-11 12:20 | Outpatient (CLI) | payer MEDICARE, MEDICAID, SELFPAY ==
--- NOTE | 2021-12-11 12:26 | XR_ITS ---
FINAL REPORT CLINICAL HISTORY: SOB COMPARISON: September 29, 2021 FINDINGS: Two views of the chest were obtained. There is evidence of prior sternotomy. The heart size and pulmonary vascularity are within normal limits. The mediastinum is normal. No acute pulmonary abnormality is identified. There is no pneumothorax. The bony thorax is intact. IMPRESSION: No active cardiopulmonary disease. Reviewed, Interpreted and Dictated by Aki Hartman III, MD Transcribed by Landon Lerma Authenticated by Aki Hartman III, MD on 12/11/2021 01:02:07 PM [facility]
== END ==
PROVIDERS: PCP Nurse Practitioner Family; Visit Provider Internal Medicine Pulmonary Disease
DX: R06.00 Dyspnea, unspecified (principal); R06.02 Shortness of breath
CPT/HCPCS: 71046; 94618

== ENCOUNTER → 2022-01-20 20:52 | Outpatient (CLI) | payer MEDICARE, MEDICAID, SELFPAY ==
[2022-01-20 21:18] LABS: Alanine Aminotransferase 17 U/L (12-78); Albumin Level 4.2 g/dl (3.5-5.0); Albumin/Globulin Ratio 1.3 (1.1-1.8); Alkaline Phosphatase 97 U/L (38-126); Anion Gap 14.6 mEq/L (5-15); Aspartate Amino Transferase 33 U/L (14-36); Bilirubin,Total 0.4 mg/dl (0.2-1.3); Blood Urea Nitrogen 30 mg/dl (7-17); Calcium 9.1 mg/dl (8.4-10.2); Carbon Dioxide 29 mmol/L (22.0-30.0); Chloride 100 mmol/L (98-107); Chol/HDL Ratio 3.8 (1-3.5); Cholesterol 154 mg/dl (140-200); Estimated Glomerular Filt Rate 33 ml/min (>60); GFR (African American) 40 ML/MIN (>60); Globulin 3.2 g/dL (1.3-3.2); Glucose 192 mg/dl (74-100); HDL Cholesterol 41 mg/dl (40-60); Potassium 4.6 mmoL/L (3.5-5.1); Sodium 139 mmol/L (136-145); Total Protein,Serum 7.4 g/dl (6.3-8.2); Triglycerides 138 mg/dl (30-150); VLDL Cholesterol 28 mg/dL (0-40)
[2022-01-20 21:21] LABS: Basophils # 0.1 K/mm3 (0-0.2); Eosinophils # 0.1 K/mm3 (0.0-0.4); Eosinophils % 1.6 % (0.1-12.0); Hematocrit 42.9 % (37.0-47.0); Hemoglobin 14.2 g/dL (12.2-16.2); Lymphocytes # 2.6 K/mm3 (0.7-4.5); Lymphocytes % 29.6 % (10-50); Mean Corpuscular HGB Conc 33.2 g/dL (31.8-35.4); Mean Corpuscular Hemoglobin 32.3 pg (27.0-31.2); Mean Corpuscular Volume 97.1 fl (81-99); Mean Platelet Volume 9.9 fl (7.4-10.4); Monocytes # 0.4 K/mm3 (0.1-1.0); Monocytes % 4.6 % (1.7-9.3); Neutrophils # 5.5 K/mm3 (1.8-7.8); Neutrophils % 63.2 % (37.0-80.0); Platelet Count 232 K/mm3 (142-424); Red Blood Count 4.41 M/mm3 (4.20-5.40); Red Cell Distribution Width 13.9 % (11.5-17.5); White Blood Count 8.6 K/mm3 (4.8-10.8)
[2022-01-20 21:30] LABS: Direct LDL Cholesterol 81.45 mg/dL (100-129)
[2022-01-20 21:35] LABS: 25-OH Vitamin D, Total 70.1 ng/mL (30-100)
[2022-01-20 21:36] LABS: T4 (Thyroxine) 7.7 ug/dl (5.53-11.0)
[2022-01-20 21:45] LABS: Hemoglobin A1C 7.7 % (4.0-6.0)
[2022-01-20 21:50] LABS: Thyroid Stimulating Hormone 7.41 uIU/mL (0.465-4.68)
== END ==
PROVIDERS: Visit Provider Nurse Practitioner Family
DX: E03.9 Hypothyroidism, unspecified (principal); E11.9 Type 2 diabetes mellitus without complications; E66.9 Obesity, unspecified; H54.8 Legal blindness, as defined in USA; E55.9 Vitamin D deficiency, unspecified; Z68.32 Body mass index [BMI] 32.0-32.9, adult
CPT/HCPCS: 80053; 80061; 82306; 83036; 84436; 84443; 85025

== ENCOUNTER → 2022-03-23 06:33 | Outpatient (CLI) | payer MEDICARE, MEDICAID, SELFPAY ==
[2022-03-23 20:26] LABS: Hemoglobin A1C 9.2 % (4.0-6.0)
== END ==
PROVIDERS: PCP Family Medicine; Visit Provider Family Medicine
DX: E11.9 Type 2 diabetes mellitus without complications (principal); Z79.4 Long term (current) use of insulin
CPT/HCPCS: 83036

== ENCOUNTER 2022-06-15 | Emergency (ER) | payer MEDICARE, MEDICAID, SELFPAY ==
[2022-06-15 00:03] VITALS: BP 128/80; PULSE 88; RESP 20; TEMP 36.9; O2SAT 98; BMI 31.2
[2022-06-15 00:13] VITALS: BP 128/80; PULSE 88; O2SAT 94
[2022-06-15 00:30] VITALS: BP 137/57; PULSE 89; O2SAT 97
--- NOTE | 2022-06-15 00:38 | PC.NURSE ---
Dr. Ghotra at speaking with pt/family
[2022-06-15 00:40] VITALS: BMI 31.2
--- NOTE | 2022-06-15 00:46 | XR_ITS ---
PROCEDURE INFORMATION: Exam: XR Chest Exam date and time: 06/15/2022 12:49 AM Age: 82 years old Clinical indication: Cough; Prior surgery; Surgery date: 6+ months; Surgery type: Open heart surgery TECHNIQUE: Imaging protocol: Radiologic exam of the chest. Views: 2 views. COMPARISON: CR XR CHEST 2V 12/11/2021 12:27 PM FINDINGS: Lungs: In the right lower lobe there is linear opacity which could reflect atelectasis. No consolidation. Pleural spaces: Unremarkable. No pleural effusion. No pneumothorax. Heart/Mediastinum: Midline sternotomy. No cardiomegaly. Bones/joints: Unremarkable. IMPRESSION: No acute findings. Mild linear atelectasis in the right lower lobe.
[2022-06-15 00:52] LABS: Microscopic, Urine URINE MICROSCOPIC (MICROSCOPIC)
[2022-06-15 00:52] LABS: Coronavirus 19, PCR Not Detected (NotDetected); Influenza A, PCR Not Detected (NotDetected); Influenza B, PCR Not Detected (NotDetected)
[2022-06-15 00:53] LABS: Basophils # 0.1 K/mm3 (0-0.2); Basophils % 0.6 % (0.1-2.0); Eosinophils # 0.2 K/mm3 (0.0-0.4); Eosinophils % 1.3 % (0.1-12.0); Hemoglobin 12.9 g/dL (12.2-16.2); Lymphocytes # 2.5 K/mm3 (0.7-4.5); Lymphocytes % 18.1 % (10-50); Mean Corpuscular Hemoglobin 31.3 pg (27.0-31.2); Mean Corpuscular Volume 94.7 fl (81-99); Mean Platelet Volume 7.7 fl (7.4-10.4); Monocytes # 0.5 K/mm3 (0.1-1.0); Monocytes % 3.6 % (1.7-9.3); Neutrophils # 10.6 K/mm3 (1.8-7.8); Neutrophils % 76.3 % (37.0-80.0); Platelet Count 342 K/mm3 (142-424); Red Blood Count 4.11 M/mm3 (4.20-5.40); Red Cell Distribution Width 13.5 % (11.5-17.5); White Blood Count 13.8 K/mm3 (4.8-10.8)
--- NOTE | 2022-06-15 00:55 | PC.NURSE ---
Pt gone to RAD
[2022-06-15 00:58] LABS: Appearance,Urine CLEAR (Clear); Bilirubin,Urine Negative (Negative); Blood, Urine Negative (Negative); Color,Urine YELLOW (Yellow); Glucose,Urine (UA) 3+ (Negative); Ketones,Urine Negative (Negative); Leukocyte Esterase,Urine Negative (Negative); Nitrate,Urine Negative (Negative); Protein,Urine Negative (Negative); Specific Gravity, Urine 1.015 (1.005-1.030); Urobilinogen,Urine 0.2 EU/dl (0.2)
[2022-06-15 00:59] LABS: Chloride 96 mmol/L (98-107); Potassium 4.1 mmoL/L (3.5-5.1); Sodium 135 mmol/L (136-145)
[2022-06-15 01:02] LABS: Alanine Aminotransferase 13 U/L (12-78); Albumin Level 3.7 g/dl (3.5-5.0); Albumin/Globulin Ratio 1.1 (1.1-1.8); Alkaline Phosphatase 160 U/L (38-126); Anion Gap 13.1 mEq/L (5-15); Aspartate Amino Transferase 22 U/L (14-36); Bilirubin,Total 0.4 mg/dl (0.2-1.3); Blood Urea Nitrogen 30 mg/dl (7-17); Carbon Dioxide 30 mmol/L (22.0-30.0); Creatinine Clearance Estimated 38 mL/min (50-200); Estimated Glomerular Filt Rate 36 ml/min (>60); GFR (African American) 44 ML/MIN (>60); Globulin 3.3 g/dL (1.3-3.2)
[2022-06-15 01:03] LABS: Calcium 8.6 mg/dl (8.4-10.2); Glucose 136 mg/dl (74-100)
--- NOTE | 2022-06-15 01:05 | PC.NURSE ---
Pt back from RAD
--- NOTE | 2022-06-15 01:06 | HMH.EDWEAK ---
Discharge Plan Disposition Patient Disposition: Home, Self-Care Prescriptions Prescriptions: New prednisone [prednisone] 20 mg tablet 20 mg PO BID Qty: 10 0RF No Action C,E,zinc,copper [id number] 250-5-1 mg capsule 1 cap PO DAILY Qty: 30 2RF cholecalciferol (vitamin D3) 50 mcg (2,000 unit) capsule 50 mcg PO DAILY Qty: 30 2RF ipratropium-albuterol 0.5 mg-3 mg(2.5 mg base)/3 mL solution for nebulization 3 ml INHALATION QID PRN (Reason: shortness of breath or wheezing) 90 Days Qty: 270 3RF Victoza 3-Stephen 0.6 mg/0.1 mL (18 mg/3 mL) pen injector 0.6 mg SQ DAILY Qty: 9 10RF gabapentin 100 mg capsule 100 mg PO HS Qty: 30 5RF omeprazole 20 mg capsule,delayed release(DR/EC) 20 mg PO DAILY Qty: 90 3RF insulin lispro 200 unit/mL (3 mL) insulin pen See Rx Instructions .ROUTE .COMPLEX Qty: 6 3RF Rx Instructions: 10 units sq tid prn bs over 300 please provide pen needles #100 [id number] albuterol sulfate 90 mcg/actuation HFA aerosol inhaler 2 inh IH Q6H PRN (Reason: shortness of breath or wheezing) 90 Days Qty: 8.5 3RF (DME) Blood Glucose Test Strip See Rx Instructions .ROUTE .MEDSUPPLY Qty: 50 12RF Rx Instructions: As directed (DME) blood-glucose meter Misc See Rx Instructions .Route Rx Instructions: As directed (DME) lancets [Droplet Lancets] 30 gauge misc See Rx Instructions .ROUTE .MEDSUPPLY Qty: 100 12RF Rx Instructions: As directed polyethylene glycol 3350 8.5 gram powder in packet 8.5 g PO DAILY Qty: 72 3RF indomethacin 25 mg capsule 25 mg PO TID PRN (Reason: Gout) Qty: 15 1RF ergocalciferol (vitamin D2) [Drisdol] 1,250 mcg (50,000 unit) capsule 1,250 mcg PO WEEKLY Qty: 13 3RF (DME) blood-glucose meter [Contour Next Glucose Meter] Kit See Rx Instructions .Route Qty: 1 0RF Rx Instructions: As directed (DME) Contour Test Strips Strip See Rx Instructions .Route Qty: 100 10RF Rx Instructions: As directed insulin glargine [Lantus Solostar U-100 Insulin] 100 unit/mL (3 mL) insulin pen SQ Stiolto Respimat 2.5-2.5 mcg/actuation mist 2 puff IH DAILY 90 Days Qty: 4 3RF montelukast 10 mg tablet 10 mg PO HS Qty: 90 3RF levothyroxine 100 mcg tablet See Rx Instructions .ROUTE .COMPLEX Qty: 90 0RF Dose Instruction: TAKE 1 TABLET EVERY DAY FOR THYROID Rx Instructions: TAKE 1 TABLET EVERY DAY FOR THYROID Jardiance 10 mg tablet See Rx Instructions .ROUTE .COMPLEX Qty: 60 0RF Dose Instruction: TAKE 1 TABLET EVERY DAY FOR DIABETES Rx Instructions: TAKE 1 TABLET EVERY DAY FOR DIABETES pravastatin 40 MG tablet 40 mg PO HS potassium chloride 20 MEQ tablet 20 meq PO DAILY furosemide 20 MG tablet 20 mg PO DAILY loratadine 10 MG tablet 10 mg PO DAILY aspirin 81 MG tablet,delayed release (DR/EC) 81 mg PO DAILY metoprolol succinate 25 MG tablet extended release 24 hr 25 mg PO DAILY Referrals Follow up/Referrals: Sascha Ghotra MD [Primary Care Provider] - See instructions Clinical Impressions Clinical Impression: Diabetes mellitus, Hypothyroidism (acquired), Obesity (BMI 30-39.9), Acute arthritis Instructions Patient Instructions: DI for Arthralgia Discharge ED Provider: Sascha Ghotra Weakness HPI General Chief complaint: Weakness Stated complaint: Fever, just doesn't feel good Time Seen by Provider: 06/15/22 01:06 Mode of Arrival: Family Vehicle Source of Information: Patient, Relative and Medical Record Limitations: Physical Limitations Description of Symptoms (Recalled from ER Triage Doc. by RN): Pt c/o body aches (worse in her hands and wrists), congestion, and weakness. States she has felt under the weather for months. She also reports swelling in her hands and feet and has a hx of gout. She has a hx of DM and COPD. History of Present Illness HPI Narrative: has ongoing jt
[2022-06-15 01:16] LABS: NT Pro Brain Natriuretic Pep. 560 pg/mL (0-450)
[2022-06-15 01:21] LABS: Erythrocyte Sedimentation Rate 76 mm/hr (0-30)
[2022-06-15 01:34] LABS: Uric Acid 7.2 mg/dl (2.5-6.2)
[2022-06-15 01:53] LABS: Procalcitonin 0.109 ng/mL (0.0-2.0)
[2022-06-15 01:54] LABS: Troponin I < 0.01 ng/ml (0.00-0.034)
[2022-06-15 01:59] LABS: T4 (Thyroxine) 7.1 ug/dl (5.53-11.0)
[2022-06-15 02:13] LABS: Thyroid Stimulating Hormone 7.82 uIU/mL (0.465-4.68)
[2022-06-15 02:54] VITALS: BP 121/65; PULSE 89; RESP 18; TEMP 37.2; O2SAT 97
[2022-06-16 13:17] LABS: Anti-Centromere B Antibodies <0.2 AI (0.0-0.9); Anti-DNA (DS) Ab Qn <1 IU/mL (0-9); Anti-Jo-1 <0.2 AI (0.0-0.9); Anti-Smith Antibody <0.2 AI (0.0-0.9); Antichromatin Antibodies <0.2 AI (0.0-0.9); Antiscleroderma-70 Antibodies <0.2 AI (0.0-0.9); RNP Antibodies <0.2 AI (0.0-0.9); Sjogren's Anti-SS-A <0.2 AI (0.0-0.9); Sjogren's Anti-SS-B <0.2 AI (0.0-0.9)
[2022-07-04 23:45] LABS: Rheumatoid Factor IGA < 7; Rheumatoid Factor IGM 8
== END 2022-06-15 03:22 | disposition home or self-care (01) ==
PROVIDERS: Emergency Provider Emergency Medicine; PCP Emergency Medicine
DX: M25.439 Effusion, unspecified wrist (principal); R53.1 Weakness; R06.02 Shortness of breath; E03.9 Hypothyroidism, unspecified; R11.2 Nausea with vomiting, unspecified; J30.9 Allergic rhinitis, unspecified; Z20.822 Contact with and (suspected) exposure to COVID-19; E11.9 Type 2 diabetes mellitus without complications; M19.90 Unspecified osteoarthritis, unspecified site; M79.10 Myalgia, unspecified site; M10.9 Gout, unspecified; J43.9 Emphysema, unspecified; Z79.51 Long term (current) use of inhaled steroids; Z79.52 Long term (current) use of systemic steroids; Z79.4 Long term (current) use of insulin; Z79.899 Other long term (current) drug therapy; Z87.891 Personal history of nicotine dependence; Z82.49 Family history of ischemic heart disease and other diseases of the circulatory system; Z68.30 Body mass index [BMI] 30.0-30.9, adult; Z83.438 Family history of other disorder of lipoprotein metabolism and other lipidemia; Z80.9 Family history of malignant neoplasm, unspecified; Z83.3 Family history of diabetes mellitus; Z87.448 Personal history of other diseases of urinary system
CPT/HCPCS: 71046; 80053; 81001; 83880; 84145; 84436; 84443; 84484; 84550; 85025; 85651; 86140; 86225; 86235; 86431; 87086; 96374; 96375; 99284; C9803; U0003; U0005

== ENCOUNTER → 2023-06-17 13:16 | Outpatient (CLI) | payer MEDICARE, MEDICAID, SELFPAY ==
--- NOTE | 2023-06-17 13:23 | XR_ITS ---
FINAL REPORT TECHNIQUE: Chest PA & Lateral CLINICAL HISTORY: ABnormal CXR COMPARISON: 12/11/2021 and 06/15/2022 FINDINGS: 2 views of the chest were performed. The heart size is normal. Median sternotomy wires are present. There is no acute cardiopulmonary process. There are no pleural effusions. There is no pneumothorax. The bony thorax appears intact. IMPRESSION: No acute cardiopulmonary process. Reviewed, Interpreted and Dictated by Eros Betancur MD Transcribed by Yeni Mckeon Authenticated and [facility]
== END ==
LOC: RAD 13:19
PROVIDERS: PCP Emergency Medicine; Visit Provider Internal Medicine Pulmonary Disease
DX: J98.11 Atelectasis (principal); R06.02 Shortness of breath; R91.8 Other nonspecific abnormal finding of lung field; Z87.891 Personal history of nicotine dependence
CPT/HCPCS: 71046

== ENCOUNTER 2023-08-25 21:22 | Outpatient (CLI) | payer MEDICARE, MEDICAID, SELFPAY ==
[2023-08-25 19:11] LABS: Basophils # 0.1 K/mm3 (0-0.2); Basophils % 0.8 % (0.1-2.0); Eosinophils # 0.2 K/mm3 (0.0-0.4); Eosinophils % 1.5 % (0.1-12.0); Hematocrit 45.3 % (37.0-47.0); Hemoglobin 15.6 g/dL (12.2-16.2); Lymphocytes # 4.6 K/mm3 (0.7-4.5); Lymphocytes % 41.1 % (10-50); Mean Corpuscular HGB Conc 34.4 g/dL (31.8-35.4); Mean Corpuscular Hemoglobin 32.4 pg (27.0-31.2); Mean Corpuscular Volume 94.1 fl (81-99); Mean Platelet Volume 9.1 fl (7.4-10.4); Monocytes # 0.4 K/mm3 (0.1-1.0); Monocytes % 3.9 % (1.7-9.3); Neutrophils # 5.9 K/mm3 (1.8-7.8); Neutrophils % 52.8 % (37.0-80.0); Platelet Count 235 K/mm3 (142-424); Red Blood Count 4.81 M/mm3 (4.20-5.40); Red Cell Distribution Width 12.9 % (11.5-17.5); White Blood Count 11.2 K/mm3 (4.8-10.8)
[2023-08-25 20:30] LABS: Chloride 102 mmol/L (98-107); Sodium 139 mmol/L (136-145)
[2023-08-25 20:31] LABS: Potassium 4.3 mmoL/L (3.5-5.1)
[2023-08-25 20:33] LABS: Alanine Aminotransferase 15 U/L (12-78); Albumin Level 4.2 g/dl (3.5-5.0); Albumin/Globulin Ratio 1.3 (1.1-1.8); Alkaline Phosphatase 110 U/L (38-126); Anion Gap 14.3 mEq/L (5-15); Aspartate Amino Transferase 29 U/L (14-36); Bilirubin,Total 0.7 mg/dl (0.2-1.3); Blood Urea Nitrogen 26 mg/dl (7-17); Carbon Dioxide 27 mmol/L (22.0-30.0); Cholesterol 170 mg/dl (140-200); Estimated Glomerular Filt Rate 43 ml/min (>60); GFR (African American) 52 ML/MIN (>60); Globulin 3.2 g/dL (1.3-3.2); Total Protein,Serum 7.4 g/dl (6.3-8.2); Triglycerides 136 mg/dl (30-150); VLDL Cholesterol 27 mg/dL (0-40)
[2023-08-25 20:34] LABS: Calcium 9.4 mg/dl (8.4-10.2); Chol/HDL Ratio 4.6 (1-3.5); Glucose 132 mg/dl (74-100); HDL Cholesterol 37 mg/dl (40-60)
[2023-08-25 20:45] LABS: 25-OH Vitamin D, Total 51.3 ng/mL (30-100)
[2023-08-25 20:52] LABS: Direct LDL Cholesterol 106.53 mg/dL (100-129)
[2023-08-25 20:55] LABS: Hemoglobin A1C 7.8 % (4.0-6.0)
[2023-08-25 21:27] LABS: Thyroid Stimulating Hormone 0.42 uIU/mL (0.465-4.68)
== END 2023-08-25 23:59 ==
LOC: LAB.DROPOF 21:22
PROVIDERS: PCP Nurse Practitioner Family; Visit Provider Nurse Practitioner Family
DX: E03.9 Hypothyroidism, unspecified (principal); E78.5 Hyperlipidemia, unspecified; E11.9 Type 2 diabetes mellitus without complications; E55.9 Vitamin D deficiency, unspecified; R53.83 Other fatigue
CPT/HCPCS: 80053; 80061; 82306; 83036; 84443; 85025

== ENCOUNTER 2023-12-24 09:09 | Outpatient (CLI) | payer MEDICARE, MEDICAID, SELFPAY ==
[2023-12-24 18:26] LABS: Basophils # 0.1 K/mm3 (0-0.2); Basophils % 0.7 % (0.1-2.0); Eosinophils # 0.2 K/mm3 (0.0-0.4); Eosinophils % 2.6 % (0.1-12.0); Hematocrit 42.7 % (37.0-47.0); Hemoglobin 13.8 g/dL (12.2-16.2); Lymphocytes # 2.9 K/mm3 (0.7-4.5); Lymphocytes % 31.2 % (10-50); Mean Corpuscular HGB Conc 32.2 g/dL (31.8-35.4); Mean Corpuscular Volume 99.3 fl (81-99); Mean Platelet Volume 10.3 fl (7.4-10.4); Monocytes # 0.4 K/mm3 (0.1-1.0); Monocytes % 3.8 % (1.7-9.3); Neutrophils # 5.8 K/mm3 (1.8-7.8); Neutrophils % 61.8 % (37.0-80.0); Platelet Count 204 K/mm3 (142-424); Red Cell Distribution Width 13.9 % (11.5-17.5); White Blood Count 9.4 K/mm3 (4.8-10.8)
[2023-12-24 18:34] LABS: Alanine Aminotransferase 13 U/L (12-78); Albumin/Globulin Ratio 1.3 (1.1-1.8); Alkaline Phosphatase 113 U/L (38-126); Anion Gap 12.5 mEq/L (5-15); Aspartate Amino Transferase 27 U/L (14-36); Bilirubin,Total 0.7 mg/dl (0.2-1.3); Blood Urea Nitrogen 26 mg/dl (7-17); Calcium 9.2 mg/dl (8.4-10.2); Carbon Dioxide 30 mmol/L (22.0-30.0); Chloride 105 mmol/L (98-107); Chol/HDL Ratio 2.6 (1-3.5); Cholesterol 179 mg/dl (140-200); Estimated Glomerular Filt Rate 31 ml/min (>60); GFR (African American) 37 ML/MIN (>60); Glucose 91 mg/dl (74-100); HDL Cholesterol 68 mg/dl (40-60); Potassium 4.5 mmoL/L (3.5-5.1); Sodium 143 mmol/L (136-145); Triglycerides 123 mg/dl (30-150); VLDL Cholesterol 25 mg/dL (0-40)
[2023-12-24 18:45] LABS: NT Pro Brain Natriuretic Pep. 2010 pg/mL (0-450)
[2023-12-24 18:54] LABS: 25-OH Vitamin D, Total 50.2 ng/mL (30-100)
[2023-12-24 19:06] LABS: Thyroid Stimulating Hormone 0.92 uIU/mL (0.465-4.68)
== END 2023-12-24 23:59 | disposition home or self-care (01) ==
LOC: LAB.DROPOF 12-28 09:10
PROVIDERS: Visit Provider Family Medicine
DX: E03.9 Hypothyroidism, unspecified (principal); E55.9 Vitamin D deficiency, unspecified; I10 Essential (primary) hypertension; E78.5 Hyperlipidemia, unspecified; E66.3 Overweight; R06.09 Other forms of dyspnea
CPT/HCPCS: 80053; 80061; 82306; 83880; 84443; 85025

== ENCOUNTER 2023-12-24 10:21 | Outpatient (CLI) | payer MEDICARE, MEDICAID, SELFPAY ==
--- NOTE | 2023-12-24 10:50 | ECG_ITS ---
APPROVED REPORT Exam: Resting ECG HR:54 bpm ECG Measurements Heart Rate 54 AXES NV 201 P 54 QRSd 118 QRS 90 QT 446 T 31 QTc 431 Conclusion SINUS BRADYCARDIA LOW QRS VOLTAGE IN PRECORDIAL LEADS [QRS DEFLECTION < 1.0 mV IN CHEST LEADS] INCOMPLETE RIGHT BUNDLE BRANCH BLOCK [90+ ms QRS DURATION, TERMINAL R IN V1/V2, 40+ ms S IN I/aVL/V4/V5/V6] SEPTAL MYOCARDIAL INFARCTION , PROBABLY OLD [40+ ms Q WAVE IN V1/V2] ABNORMAL ECG UNCONFIRMED REPORT Electronically signed by : Jevon Tellez MD 12/25/2023 08:30:30
== END 2023-12-24 23:59 | disposition home or self-care (01) ==
LOC: RT 10:27 → LAB.DROPOF 13:39
PROVIDERS: PCP Family Medicine; Visit Provider Family Medicine
DX: E11.9 Type 2 diabetes mellitus without complications (principal); E55.9 Vitamin D deficiency, unspecified; I10 Essential (primary) hypertension; E66.3 Overweight; E78.5 Hyperlipidemia, unspecified; R06.09 Other forms of dyspnea; E03.9 Hypothyroidism, unspecified; Z79.899 Other long term (current) drug therapy; R00.1 Bradycardia, unspecified; R94.31 Abnormal electrocardiogram [ECG] [EKG]
CPT/HCPCS: 80053; 80061; 82306; 83880; 84443; 85025; 93005; 93225; 93226; 93227

== ENCOUNTER 2023-12-27 15:55 | Outpatient (CLI) | payer MEDICARE, MEDICAID, SELFPAY | END 2023-12-27 23:59 | disposition home or self-care (01) | PROVIDERS: PCP Family Medicine; Visit Provider Family Medicine | DX: R00.0 Tachycardia, unspecified (principal) | CPT/HCPCS: 93270 ==

== ENCOUNTER 2024-01-18 11:23 | Outpatient (CLI) | payer MEDICARE, MEDICAID, SELFPAY ==
--- NOTE | 2024-01-18 | CA_ITS ---
APPROVED REPORT Exam: Pharmacologic Technologist: Keke Gonzales, Ht: 5 ft 2 in Wt: 168 lbs BSA: 1.78 m2 HR: 76 bpm BP: 139/68 mmHg Rhythm: NSR Medical History Medications: Omeprazole,,,,, Levothyroxine,,,,, Aspirin,,,,, Pravastatin,,,,, Allopurinol,,,,, Albuterol,,,,, LanTUS,,,,, Vitamin D2,,,,, ViCtoza,,,,, JaRDiance,,,,, [place]AST,,,,, Metoprolol Succinate ER,,,,, Stress Test Details Test: LEXISCAN Reason for pharmacologic stress test: physical limitation. HR Resting HR: 80 bpm Max Heart Rate (APMHR): 137 bpm Max HR Achieved: 96 bpm Target HR (85% APMHR): 116 bpm % of APMHR: 70 Recovery HR: 90 bpm BP Resting BP: 139.0/68.0 mmHg Max BP: 151.0/74.0 mmHg Recovery BP: 147.0/65.0 mmHg ECG Resting ECG: SR, RBBB Stress ECG: No significant ST changes Arrhythmia: None Clinical Exercise duration: 04:00 min Highest Stage Achieved: Stress ECG Conclusion Symptoms: Dyspnea, nausea Arrhythmias/Ectopy: None ST-T Changs: No significant ST changes Conclusion: EKG unremarkable due to Lexiscan infusion. Myoview images are reported separately. Test Summary REST 00:33 . . 80 . 139/ 68 . . Stage 1 . . . . . . . Myoview Injected Stage 1 01:00 . . 91 . . . . Stage 2 01:00 . . 91 . 149/ 71 . . Stage 3 01:00 . . 90 . 151/ 74 . . Stage 4 01:00 . . 90 . 140/ 72 . Stop exercise at 04:00 RECOVERY 01:00 . . 90 . . . . RECOVERY 02:00 . . 90 . 135/ 65 . . RECOVERY 03:00 . . 88 . 147/ 65 . . RECOVERY 03:13 . . 89 . 147/ 65 . . Electronically signed by : Meche Mercedes MD 01/22/2024 23:28:50
--- NOTE | 2024-01-18 11:24 | NM_ITS ---
APPROVED REPORT Exam: Nuclear Stress Test Indication: SOB, HTN, DM, High cholesterol, CAD, Hx of RI, CABG Patient Location: Outpatient Stress Tech: Keke Evans [place] Tech:America Gonzalez, ARRT, RT (R)(N) Ht: 5 ft 1 in Wt: 160 lbs Bra Size: C HR: 80 bpm BP: 139/68 mmHg BSA: 1.72 m2 TID: 1.06 BMI: 30.2 History: SOB, HTN, DM, High cholesterol, CAD, Hx of RI, CABG Procedure: Patient received 0.4 mg of intravenous Lexiscan, resting heart rate 80 bpm, resting blood pressure 139/68 mmHg, with Lexiscan maximum heart rate achieved was 96 bpm which is % of the maximum predicted heart rate and blood pressure was 151/74 mmHg. With Lexiscan, patient denied any complaint of chest pain. Cardiac Stress and Resting SPECT Images: Cardiac Stress and Resting SPECT images were obtained using technetium 99m Myoview 32.9 mCi stress and 10.48 mCi at rest. Resting and stress imaging in supine and prone positions demonstrate no evidence of fixed or reversible perfusion defects. Gated imaging demonstrates normal global and regional LV systolic function. LVEF is calculated at 64%. Conclusion: No evidence of fixed or reversible perfusion defects. Gated imaging demonstrates normal global and regional LV systolic function. LVEF is calculated at 64%. Electronically signed by : Meche Mercedes MD 01/22/2024 23:30:01
[2024-01-18] MEDS: SODIUM CHLORIDE 0.9% 10ML SYR (RAD ONLY) 10 ML IV ×2 (13:05→13:06)
[2024-01-18] MEDS: REGADENOSON 0.4MG/5ML SYRINGE 0.4 MG IV (13:05)
[2024-01-18] MEDS: ISOTOPE MYOVIEW (PER STUDY) 1 DOSE IV (13:06)
--- NOTE | 2024-01-18 13:18 | CA_ITS ---
APPROVED REPORT EXAM: Comprehensive 2D, Doppler, and color-flow Echocardiogram Yard Motor Operator: Ashley Tran CRT Ht: 5 ft 2 in Wt: 168lbs BSA: 1.78 BP: 118/72 mmHg Indications: Chest Pain, Shortness of Breath, CVA/TIA, Diabetes, Hyperlipidemia, Hypertension/HDD, CABG 2D Dimensions LA Volume 25.80 mL LA Volume Index 14.49 mL/m2 (M/F) 16-34 M-Mode Dimensions RVDd 3.70 cm (0.9-2.6) LA Diam 3.64 cm (1.9-4.0) LVDd 4.41 cm (3.5-5.7) LVDs 3.27 cm (3.5-5.7) IVSd 1.42 cm (0.6-1.1) PWd 0.82 cm (0.6-1.1) EF (Teich) 51.00% FS 25.90% EDV (Teich) 88.20 mL TAPSE 1.04 (<1.7) ESV (Teich) 43.20 mL LV Diastology E Decel Time 167 (160-240 msec) E/A Ratio 0.2 MED A' 11.50 cm/s LAT A' 12.00 cm/s Aortic Valve AI PHT 370.00 ms AO Peak GR. 4.40 mmHg Mitral Valve MV E Max David. 44.0 (40-130 cm/s) MV A Velocity 253.0 (40-130 cm/s) E/A Ratio 0.17 MV PHT 49.0 ms Pulmonary Valve PV Peak Velocity 146.0 (50-150 cm/s) Tricuspid Valve TR P. Velocity 210.00 cm/s RAP Estimate 10.00 mmHg RVSP 27.70 mmHg Left Ventricle The left ventricle is normal size. The left ventricular systolic function is normal. The left ventricular ejection fraction is within the normal range. There is increased LV wall thickness. There is normal LV segmental wall motion. Transmitral Doppler flow pattern suggests impaired LV relaxation. LVEF is 55%. Right Ventricle The right ventricle is normal size. The right ventricular systolic function is normal. Atria The left atrium is mildly dilated. The right atrium is mildly dilated. There is no Doppler evidence of interatrial shunt. Aortic Valve The aortic valve is mildly thickened. The aortic valve is trileaflet. There is no aortic valvular stenosis. Mild aortic regurgitation. Mitral Valve The mitral valve leaflets are mildly thickened. No evidence of mitral valve stenosis. Mild mitral regurgitation. The MR jet is eccentric and posteriorly directed. Tricuspid Valve The tricuspid valve leaflets are thin and pliable. Mild tricuspid regurgitation. RVSP is 15-20 mmHg. Pulmonic Valve The pulmonary valve is normal in structure. Mild pulmonic regurgitation. Great Vessels The aortic root is normal in size. The ascending aorta is normal in size. IVC is normal in size and collapses >50% with inspiration. Pericardium There is no pericardial effusion. Other Information Study Quality: Technically Difficult Conclusion Technically difficult study due to poor acoustic windows. Normal biventricular systolic function. Mild biatrial dilation. Mild AI, mild MR, mild TR, mild PI. Electronically signed by : Meche Mercedes MD 01/20/2024 11:37:22
== END 2024-01-18 23:59 | disposition home or self-care (01) ==
LOC: RAD 11:24
PROVIDERS: PCP Family Medicine; Visit Provider Family Medicine
DX: R06.02 Shortness of breath; R06.09 Other forms of dyspnea; R00.0 Tachycardia, unspecified; I25.118 Atherosclerotic heart disease of native coronary artery with other forms of angina pectoris
CPT/HCPCS: 78452; 93017; 93018; 93306; A9502; J2785

== ENCOUNTER 2024-03-20 10:00 | Outpatient (CLI) | payer MEDICARE, MEDICAID, SELFPAY ==
[2024-03-20 18:24] LABS: Basophils # 0.1 K/mm3 (0-0.2); Basophils % 0.9 % (0.1-2.0); Eosinophils # 0.2 K/mm3 (0.0-0.4); Hematocrit 45.6 % (37.0-47.0); Hemoglobin 14.3 g/dL (12.2-16.2); Lymphocytes # 3.4 K/mm3 (0.7-4.5); Lymphocytes % 37.5 % (10-50); Mean Corpuscular HGB Conc 31.4 g/dL (31.8-35.4); Mean Corpuscular Hemoglobin 31.6 pg (27.0-31.2); Mean Corpuscular Volume 100.8 fl (81-99); Mean Platelet Volume 9.5 fl (7.4-10.4); Monocytes # 0.4 K/mm3 (0.1-1.0); Monocytes % 4.7 % (1.7-9.3); Neutrophils # 4.9 K/mm3 (1.8-7.8); Neutrophils % 54.8 % (37.0-80.0); Platelet Count 228 K/mm3 (142-424); Red Blood Count 4.53 M/mm3 (4.20-5.40); Red Cell Distribution Width 13.9 % (11.5-17.5)
[2024-03-20 19:04] LABS: Alanine Aminotransferase 13 U/L (12-78); Albumin Level 3.9 g/dl (3.5-5.0); Albumin/Globulin Ratio 1.2 (1.1-1.8); Alkaline Phosphatase 128 U/L (38-126); Anion Gap 10.4 mEq/L (5-15); Aspartate Amino Transferase 27 U/L (14-36); Bilirubin,Total 0.8 mg/dl (0.2-1.3); Blood Urea Nitrogen 29 mg/dl (7-17); Carbon Dioxide 31 mmol/L (22.0-30.0); Chloride 102 mmol/L (98-107); Estimated Glomerular Filt Rate 33 ml/min (>60); GFR (African American) 40 ML/MIN (>60); Globulin 3.3 g/dL (1.3-3.2); Glucose 111 mg/dl (74-100); Potassium 4.4 mmoL/L (3.5-5.1); Sodium 139 mmol/L (136-145); Total Protein,Serum 7.2 g/dl (6.3-8.2)
[2024-03-20 19:56] LABS: Creatinine,Urine Random 27 mg/dL (Not Estab.); Microalbumin/Creatinine Ratio 61.4
[2024-03-20 21:02] LABS: Chol/HDL Ratio 3.5 (1-3.5); Cholesterol 146 mg/dl (140-200); HDL Cholesterol 42 mg/dl (40-60); Triglycerides 91 mg/dl (30-150); VLDL Cholesterol 18 mg/dL (0-40)
[2024-03-20 21:13] LABS: Direct LDL Cholesterol 88.46 mg/dL (100-129)
== END 2024-03-20 23:59 | disposition home or self-care (01) ==
LOC: LAB.DROPOF 03-21 08:57
PROVIDERS: Nurse Practitioner; PCP Family Medicine; Visit Provider Family Medicine
DX: E78.2 Mixed hyperlipidemia (principal); I25.10 Atherosclerotic heart disease of native coronary artery without angina pectoris; Z95.1 Presence of aortocoronary bypass graft; I11.9 Hypertensive heart disease without heart failure
CPT/HCPCS: 80053; 80061; 82043; 82570; 85025

== ENCOUNTER 2024-06-16 11:00 | Outpatient (CLI) | payer MEDICARE, MEDICAID, SELFPAY ==
[2024-06-16 18:19] LABS: Creatinine,Urine Random 17 mg/dL (Not Estab.)
[2024-06-16 18:20] LABS: Microalbumin/Creatinine Ratio 92.3
[2024-06-16 18:31] LABS: Alanine Aminotransferase 15 U/L (12-78); Albumin Level 4.3 g/dl (3.5-5.0); Albumin/Globulin Ratio 1.4 (1.1-1.8); Alkaline Phosphatase 136 U/L (38-126); Anion Gap 14.4 mEq/L (5-15); Aspartate Amino Transferase 28 U/L (14-36); Bilirubin,Total 0.9 mg/dl (0.2-1.3); Blood Urea Nitrogen 30 mg/dl (7-17); Calcium 9.5 mg/dl (8.4-10.2); Carbon Dioxide 24 mmol/L (22.0-30.0); Chloride 104 mmol/L (98-107); Estimated Glomerular Filt Rate 39 ml/min (>60); GFR (African American) 47 ML/MIN (>60); Glucose 271 mg/dl (74-100); Potassium 4.4 mmoL/L (3.5-5.1); Sodium 138 mmol/L (136-145); Total Protein,Serum 7.3 g/dl (6.3-8.2)
== END 2024-06-16 23:59 | disposition home or self-care (01) ==
LOC: LAB.DROPOF 06-19 10:37
PROVIDERS: PCP Family Medicine; Visit Provider Family Medicine
DX: E11.9 Type 2 diabetes mellitus without complications (principal); N28.9 Disorder of kidney and ureter, unspecified
CPT/HCPCS: 80053; 82043; 82570

== ENCOUNTER 2024-12-13 12:29 | Outpatient (CLI) | payer MEDICARE, MEDICAID, SELFPAY ==
[2024-12-13 18:58] LABS: Basophils % 0.5 % (0.1-2.0); Eosinophils # 0.2 Kmm3 (0.0-0.4); Eosinophils % 2.1 % (0.1-12.0); Hematocrit 41.4 % (37.0-47.0); Hemoglobin 13.5 g/dL (12.2-16.2); Immature Granulocytes # 0.04 10^3uL; Immature Granulocytes % 0.5 %; Lymphocytes % 34.2 % (10-50); Mean Corpuscular HGB Conc 32.6 g/dL (31.8-35.4); Mean Corpuscular Hemoglobin 31.5 pg (27.0-31.2); Mean Corpuscular Volume 96.5 fl (81-99); Mean Platelet Volume 10.6 fl (7.4-10.4); Monocytes # 0.5 K/mm3 (0.1-1.0); Neutrophils % 56.7 % (37.0-80.0); Nucleated Red Blood Cells # 0 10^3/uL; Nucleated Red Blood Cells % 0 %; Platelet Count 212 K/mm3 (142-424); Red Blood Count 4.29 M/mm3 (4.20-5.40); Red Cell Distribution Width 13.2 % (11.5-17.5); Red Cell Distribution Width-SD 47.1 fL; White Blood Count 8.8 K/mm3 (4.8-10.8)
[2024-12-13 19:57] LABS: Chloride 108 mmol/L (98-107); Potassium 4.4 mmoL/L (3.5-5.1); Sodium 141 mmol/L (136-145)
[2024-12-13 19:59] LABS: Blood Urea Nitrogen 23 mg/dl (7-17); Estimated Glomerular Filt Rate 39 ml/min (>60); GFR (African American) 47 ML/MIN (>60)
[2024-12-13 20:00] LABS: Alanine Aminotransferase 16 U/L (12-78); Albumin/Globulin Ratio 1.5 (1.1-1.8); Alkaline Phosphatase 108 U/L (38-126); Anion Gap 9.4 mEq/L (5-15); Aspartate Amino Transferase 25 U/L (14-36); Bilirubin,Total 0.5 mg/dl (0.2-1.3); Calcium 8.7 mg/dl (8.4-10.2); Carbon Dioxide 28 mmol/L (22.0-30.0); Globulin 2.7 g/dL (1.3-3.2); Glucose 122 mg/dl (74-100); Total Protein,Serum 6.7 g/dl (6.3-8.2)
[2024-12-13 22:32] LABS: Hemoglobin A1C 8.2 % (4.0-6.0)
== END 2024-12-13 23:59 | disposition home or self-care (01) ==
LOC: LAB.DROPOF 12-15 12:29
PROVIDERS: PCP Family Medicine; Visit Provider Family Medicine
DX: Z00.00 Encounter for general adult medical examination without abnormal findings (principal); E11.9 Type 2 diabetes mellitus without complications; Z79.4 Long term (current) use of insulin
CPT/HCPCS: 80053; 83036; 85025

== ENCOUNTER 2025-02-06 14:03 | Outpatient (CLI) | payer MEDICARE, MEDICAID, SELFPAY ==
--- OUTSIDE RECORDS SUMMARY | 2025-02-06 14:05 | XMS_ITS | Encounter Summary ---
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 Name Role Phone Unavailable Primary Care Provider Unavailabl e Encounter Details Date Type Department Care Team (Late st Contact Info) Description 09/22/2021 Transcribed Document [facility] [place] [address] ProviderAlissa MD [address] [place] [address] Social History Tobacco Use Types Packs/Day Years Used Date Smoking Tobacco: Never Assessed Comments Unknown Sex and Gender Information Value Date Recorded Sex Assigned at Female 02/03/2022 6:37 PM CDT Legal Sex Female 4:29 PM CDT Gender Identity Female 02/03/2022 6:37 PM CDT Sexual Orientation Not on file documented as of this encounter Miscellaneous Notes * Cerner Conversion Note - Alissa ProviderMD - 09/22/2021 11:24 PM 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 [address] BRENT MIR :1940 Visit Time:09/22/2021 Your Visit Summary Your Care Team Primary Provider: ESTEPHANIA MORRISSEY Secondary Provider: Your Diagnosis COPD exacerbation Hyperglycemia Medical screening exam Shortness of breath Medical Information You may obtain a copy of your Emergency Department visit from Medical Records by calling the hospital phone number listed above and asking to be directed to the Medical Records Department. If you had special tests, such as EKG???s or X-rays, the interpretation of your tests given to you by the Emergency Department Physician is a preliminary report. Some fractures and illnesses fail to show up on preliminary tests. These will be reviewed again and we will call you if there are any new suggestions. If your symptoms continue notify your physician. After you leave, you should follow the instructions provided. What to do next Follow-Up Appointments Follow Up with [facility] [place] When Within 2 to 3 days Comments Take medication as prescribed, follow-up with PCP, return to the emergency department with new or worsening symptoms Where: [address] [facility] [address] [place] [address] Business (1) Allergies No Known Allergies Immunizations This Visit No Immunizations Found Medications What How Much When Instructions Next Dose doxycycline (doxycycline hyclate 100 mg oral capsule) 1 Capsule(s) Oral Two Times A Day Duration: 10 Day(s) Pickup at [facility] albuterol (Ventolin HFA 90 mcg/ inh inhalation aerosol) See instructions 2 Puff Inhalatio only as needed. amlodipine (amlodipine 5 mg oral tablet) 1 Tablet(s) Oral Every Day aspirin (Aspirin Low Dose) 81 Milligram(s) Oral Every Day calcium-vitamin D (Calcium 600+D) 1 Tablet(s) Oral Every Day cetirizine (Zyrtec 10 mg oral tablet) 1 Tablet(s) Oral Every Day as needed for for allergy symptoms cholecalciferol (Vitamin D3 2000 intl units oral capsule) 1 Capsule(s) Oral Every Day furosemide (Lasix 20 mg oral tablet) 1 Tablet(s) Oral Every Day gabapentin (gabapentin 100 mg oral capsule) 2 Capsule(s) Oral Three Times A Day glipiZIDE (glipiZIDE 10 mg oral tablet) 1 Tablet(s) Oral Every Day insulin glargine (Lantus Solostar Pen) 80 Unit(s) SubCutaneous Every Day isosorbide mononitrate (isosorbide mononitrate 60 mg oral tablet, extended release) 1 Tablet(s) Oral Every Morning metoprolol (Metoprolol Succinate ER) 25 Oral Every Day montelukast (Singulair 10 mg oral tablet) See instructions takes only as needed. multivitamin with minerals (Multivitamins and Minerals) 1 Oral Every Day multivitamin with minerals (Occuplex oral capsule) 1 Capsule(s) Oral Every Day pioglitazone (Actos 30 mg oral tablet) 1 Tablet(s) Oral Every Day potassium chloride (potassium chloride 20 mEq oral tablet, extended release) 1 Tablet(s) Oral Three Times A Day PRAVAstatin 60 Milligram(s) Oral At Bedtime Pharmacy Information [facility]: [address], [place] [id number] [phone] The home medications listed are only as accurate as the information you provided. Please continue taking all of your medications prescribed by your Primary Care Provider unless specifically told to change or discontinue the medication. Please direct any questions regarding your home medications to your Primary Care Provider. Take your medications faithfully. Do NOT skip medication. Do NOT stop taking medications without the direction of a physician. Carry a list of your medications with you at all times, and take this medication list with you to your first follow up visit. Report any side effects. Avoid herbal remedies unless discussed with your physician. As part of your treatment plan, your physician may have prescribed a limited course of a controlled substance. This medication may be given to help people with moderate or severe pain or for other medical conditions, but there are risks involved with treatment. Common side effects may include nausea, constipation, drowsiness, sweating, itching, dry mouth, and rash. More serious side effects may include cognitive and motor impairment, like problems with thinking, concentrating, alertness, and movement (e.g. slowed reflexes), and driving and operating heavy machinery can be dangerous. It is important for you to talk to your physician if you have these side effects or questions. These controlled substances can produce physical dependence and be habit-forming if taken for an extended period of time, which means that the body has gotten used to them and may experience withdrawal symptoms if they are abruptly stopped. Withdrawal symptoms can include runny nose, sweating, goose bumps, diarrhea, abdominal cramping, rapid heartbeat, difficulty sleeping, and nervousness. Please dispose of unused and medications per pharmacy guidance. Test Results Laboratory or Other Results This Visit (last charted value for your 09/22/2021 visit) Hematology 09/22/2021 7:48 PM WBC: 9.6 K/uL -- Normal range between ( 4.5 and 10.5 ) RBC: 4.46 Million/uL -- Normal range between ( 3.93 and 5.22 ) Hct: 41.4 % -- Normal range between ( 34.1 and 44.9 ) Hgb: 13.5 g/dL -- Normal range between ( 11.2 and 15.7 ) Platelet Count: 180 K/uL -- Normal range between ( 163 and 369 ) MCH: 30.3 pg -- Normal range between ( 25.6 and 32.2 ) MCHC: 32.6 Gram/dL -- Normal range between ( 32.2 and 36.5 ) MCV: 92.8 fL -- Normal range between ( 79.0 and 94.8 ) Slide Review: No Eos %: 0.0 % -- Normal range between ( 0.0 and 7.0 ) [place] #: 0.20 K/uL -- Normal range between ( 0.16 and 1.00 ) Eos #: 0.00 x10(3)/uL -- Normal range between ( 0.00 and 0.80 ) [place] %: 2.1 % -- Normal range between ( 3.0 and 9.0 ) Baso %: 0.3 % -- Normal range between ( 0.0 and 1.5 ) Baso #: 0.03 x10(3)/uL -- Normal range between ( 0.00 and 0.20 ) RDW: 12.8 % -- Normal range between ( 11.7 and 14.9 ) Neut %: 85.3 % -- Normal range between ( 34.0 and 71.0 ) Neut #: 8.23 K/uL -- Normal range between ( 1.56 and 6.13 ) Lymph %: 11.9 % -- Normal range between ( 19.3 and 53.1 ) Lymph #: 1.15 x10(3)/uL -- Normal range between ( 1.00 and 3.90 ) MPV: 10.3 fL -- Normal range between ( 9.4 and 12.4 ) IG#: 0.04 x10(3)/uL -- Normal range between ( 0.00 and 0.05 ) IG%: 0.40 % -- Normal range between ( 0.00 and 0.60 ) General Chemistry 09/22/2021 11:04 PM Glucose POC2: 311 mg/dL -- Normal range between ( 70 and 110 ) Device Comment 1: Device Comment 1 09/22/2021 7:48 PM Creatinine Level: 1.70 mg/dL -- Normal range between ( 0.55 and 1.02 ) Sodium Level: 133 mmol/L -- Normal range between ( 136 and 146 ) Potassium Level: 4.9 mmol/L -- Normal range between ( 3.5 and 5.1 ) Chloride Level: 99 mmol/L -- Normal range between ( 102 and 112 ) Carbon Dioxide Level: 29 mmol/L -- Normal range between ( 21 and 32 ) Anion Gap: 10 -- Normal range between ( 9 and 20 ) Bilirubin Total: 0.6 mg/dL -- Normal range between ( 0.2 and 1.2 ) A/G Ratio: 0.9 -- Normal range between ( 1.1 and 2.5 ) ALT: 15 Units/Liter -- Normal range between ( 13 and 56 ) AST: 14 Units/Liter -- Normal range between ( 5 and 37 ) Globulin: 4.0 Gram/dL -- Normal range between ( 1.5 and 4.5 ) Alk Phos: 110 Units/Liter -- Normal range between ( 27 and 136 ) Bun/Creatinine: 20.0 -- Normal range between ( 8.0 and 20.0 ) Calcium Level: 8.9 mg/dL -- Normal range between ( 8.4 and 10.1 ) eGFR : 35 mL/min/1.73m2 eGFR NonAfrican: 29 mL/min/1.73m2 Glucose Level: 555 mg/dL -- Normal range between ( 74 and 106 ) Blood Urea Nitrogen: 34 mg/dL -- Normal range between ( 7 and 22 ) Protein Total: 7.7 Gram/dL -- Normal range between ( 6.4 and 8.2 ) Albumin Level: 3.7 Gram/dL -- Normal range between ( 3.4 and 5.0 ) Cardiac Specific Markers 09/22/2021 7:48 PM Troponin I High Sensitivity: 5.0 pg/mL -- Normal range between ( 3.0 and 58.8 ) Diagnostic Radiology 09/22/2021 5:28 PM CR Chest 2 Vws: CR Chest 2 [employer] Hyperglycemia Hyperglycemia occurs when the level of sugar (glucose) in the blood is too high. Glucose is a type of sugar that provides the body's main source of energy. Certain hormones (insulin and glucagon) control the level of glucose in the blood. Insulin lowers blood glucose, and glucagon increases blood glucose. Hyperglycemia can result from not having enough insulin in the bloodstream, or from the body not responding normally to insulin. Hyperglycemia occurs most often in people who have diabetes (diabetes mellitus), but it can happen in people who do not have diabetes. It can develop quickly, and it can be life-threatening if it causes you to become severely dehydrated (diabetic ketoacidosis or hyperglycemic hyperosmolar state). Severe hyperglycemia is a medical emergency. For most people with diabetes, a blood glucose level above 240 mg/dL is considered hyperglycemia. What are the causes? If you have diabetes, hyperglycemia may be caused by: ??? Medicines that increase blood glucose or affect your diabetes control. ??? Getting less physical activity. ??? Eating more than planned. ??? Being sick or injured, having an infection, or having surgery. ??? Stress. ??? Not giving yourself enough insulin (if you are taking insulin). If you have undiagnosed diabetes, this may cause hyperglycemia. If you do not have diabetes, hyperglycemia may be caused by: ??? Certain medicines, including: ? Steroid medicines. ? Beta-blockers. ? Epinephrine. ? Thiazide diuretics. ??? Stress. ??? Having a serious illness, an infection, or surgery. ??? Diseases of the pancreas. What increases the risk? Hyperglycemia is more likely to develop in people who have risk factors for diabetes, such as: ??? Having a family member with diabetes. ??? Certain conditions in which the body's disease-fighting system (immune system) attacks itself (autoimmune disorders). ??? Being overweight or obese. ??? Having an inactive (sedentary) lifestyle. ??? Having been diagnosed with insulin resistance. ??? Having a history of prediabetes, gestational diabetes, or polycystic ovarian syndrome (PCOS). What are the signs or symptoms? Hyperglycemia may not cause any symptoms. If you do have symptoms, they may include: ??? Increased thirst. ??? Needing to urinate more often than usual. ??? Hunger. ??? Feeling very tired. ??? Blurry vision. Other symptoms may develop if hyperglycemia gets worse, such as: ??? Dry mouth. ??? Abdominal pain. ??? Loss of appetite. ??? Fruity-smelling breath. ??? Weakness. ??? Unexpected weight loss. ??? Tingling or numbness in the hands or feet. ??? Headache. ??? Cuts or bruises that are slow to heal. How is this diagnosed? Hyperglycemia is diagnosed with a blood test to measure your blood glucose level. This blood test is usually done while you are having symptoms. Your health care provider may also do a physical exam and review your medical history. You may have more tests to determine the cause of your hyperglycemia, such as: ??? A fasting blood glucose (FBG) test. You will not be allowed to eat (you will fast) for at least 8 hours before a blood sample is taken. ??? An A1c (hemoglobin A1c) blood test. This provides information about blood glucose control over the previous 2???3 months. ??? An oral glucose tolerance test (OGTT). This measures your blood glucose at two times: ? After fasting. This is your baseline blood glucose level. ? Two hours after drinking a beverage that contains glucose. How is this treated? Treatment depends on the cause of your hyperglycemia. Treatment may include: ??? Taking medicine to regulate your blood glucose levels. If you take insulin or other diabetes medicines, your medicine or dosage may be adjusted. ??? Lifestyle changes, such as exercising more, eating healthier foods, or losing weight. ??? Treating an illness or infection. ??? Checking your blood glucose more often. ??? Stopping or reducing steroid medicines. If your hyperglycemia becomes severe and it results in diabetic ketoacidosis or hyperglycemic hyperosmolar state, you must be hospitalized and given IV fluids and IV insulin. Follow these instructions at home: General instructions ??? Take [id number] and prescription medicines only as told by your health care provider. ??? Do not use any products that contain nicotine or tobacco, such as cigarettes, e-cigarettes, and chewing tobacco. If you need help quitting, ask your health care provider. ??? If you drink alcohol: ? Limit how much you use to: ? 0???1 drink a day for women. ? 0???2 drinks a day for men. ? Be aware of how much alcohol is in your drink. In the [place] one drink equals one 12 oz bottle of beer (355 mL), one 5 oz glass of wine (148 mL), or one 1?? oz glass of hard liquor (44 mL). ??? Learn to manage stress. If you need help with this, ask your health care provider. ??? Exercise regularly, as told by your health care provider. ??? Keep all follow-up visits as told by your health care provider. This is important. Eating and drinking ??? Maintain a healthy weight. ??? Stay hydrated, especially when you exercise, get sick, or spend time in hot temperatures. Drink enough fluid to keep your urine pale yellow. ??? Follow your meal plan. Eat on time. Do not skip meals. If you have diabetes: ??? Make sure you know the symptoms of hyperglycemia. ??? Follow your diabetes management plan as told by your health care provider. Make sure you: ? Take your insulin and medicines as told. ? Follow your exercise plan. ? Follow your meal plan. Eat on time, and do not skip meals. ? Check your blood glucose as often as told. Make sure to check your blood glucose before and after exercise. If you exercise longer or in a different way than usual, check your blood glucose more often. ? Follow your sick day plan whenever you cannot eat or drink normally. Make this plan in advance with your health care provider. ??? Share your diabetes management plan with people in your workplace, school, and household. ??? Check your urine for ketones when you are ill and as told by your health care provider. ??? Carry a medical alert card or wear medical alert jewelry. Contact a health care provider if: ??? Your blood glucose is at or above 240 mg/dL (13.3 mmol/L) for 2 days in a row. ??? You have problems keeping your blood glucose in your target range. ??? You have frequent episodes of hyperglycemia. ??? You have signs of illness, such as nausea, vomiting, or fever. Get help right away if: ??? Your blood glucose monitor reads high even when you are taking insulin. ??? You have trouble breathing. ??? You have a change in how you think, feel, or act (mental status). ??? You have nausea or vomiting that does not go away. These symptoms may represent a serious problem that is an emergency. Do not wait to see if the symptoms will go away. Get medical help right away. Call your local emergency services (911 in the [place] Do not drive yourself to the hospital. Summary ??? Hyperglycemia occurs when the level of sugar (glucose) in the blood is too high. ??? Hyperglycemia can happen with or without diabetes, and severe hyperglycemia can be life-threatening. ??? Hyperglycemia is diagnosed with a blood test to measure your blood glucose level. This blood test is usually done while you are having symptoms. Your health care provider may also do a physical exam and review your medical history. ??? If you have diabetes, follow your diabetes management plan as told by your health care provider. ??? Contact your health care provider if you have problems keeping your blood glucose in your target range. This information is not intended to replace advice given to you by your health care provider. Make sure you discuss any questions you have with your health care provider. Document Revised: 07/18/2020 Document Reviewed: 06/26/2020 [employer] Patient Education ?? 2020 [employer]. Chronic Obstructive Pulmonary Disease Exacerbation Chronic obstructive pulmonary disease (COPD) is a long-term (chronic) condition that affects the lungs. COPD is a general term that can be used to describe many different lung problems that cause lung swelling (inflammation) and limit airflow, including chronic bronchitis and emphysema. COPD exacerbations are episodes when breathing symptoms become much worse and require extra treatment. COPD exacerbations are usually caused by infections. Without treatment, COPD exacerbations can be severe and even life threatening. Frequent COPD exacerbations can cause further damage to the lungs. What are the causes? This condition may be caused by: ??? Respiratory infections, including viral and bacterial infections. ??? Exposure to smoke. ??? Exposure to air pollution, chemical fumes, or dust. ??? Things that give you an allergic reaction (allergens). ??? Not taking your usual COPD medicines as directed. ??? Underlying medical problems, such as congestive heart failure or infections not involving the lungs. In many cases, the cause (trigger) of this condition is not known. What increases the risk? The following factors may make you more likely to develop this condition: ??? Smoking cigarettes. ??? Old age. ??? Frequent prior COPD exacerbations. What are the signs or symptoms? Symptoms of this condition include: ??? Increased coughing. ??? Increased production of mucus from your lungs (sputum). ??? Increased wheezing. ??? Increased shortness of breath. ??? Rapid or labored breathing. ??? Chest tightness. ??? Less energy than usual. ??? Sleep disruption from symptoms. ??? Confusion or increased sleepiness. Often these symptoms happen or get worse even with the use of medicines. How is this diagnosed? This condition is diagnosed based on: ??? Your medical history. ??? A physical exam. You may also have tests, including: ??? A chest X-ray. ??? Blood tests. ??? Lung (pulmonary) function tests. How is this treated? Treatment for this condition depends on the severity and cause of the symptoms. You may need to be admitted to a hospital for treatment. Some of the treatments commonly used to treat COPD exacerbations are: ??? Antibiotic medicines. These may be used for severe exacerbations caused by a lung infection, such as pneumonia. ??? Bronchodilators. These are inhaled medicines that expand the air passages and allow increased airflow. ??? Steroid medicines. These act to reduce inflammation in the airways. They may be given with an inhaler, taken by mouth, or given through an IV tube inserted into one of your veins. ??? Supplemental oxygen therapy. ??? Airway clearing techniques, such as noninvasive ventilation (NIV) and positive expiratory pressure (PEP). These provide respiratory support through a mask or other noninvasive device. An example of this would be using a continuous positive airway pressure (CPAP) machine to improve delivery of oxygen into your lungs. Follow these instructions at home: Medicines ??? Take vjmn-fha-zbscgev and prescription medicines only as told by your health care provider. It is important to use correct technique with inhaled medicines. ??? If you were prescribed an antibiotic medicine or oral steroid, take it as told by your health care provider. Do not stop taking the medicine even if you start to feel better. Lifestyle ??? Eat a healthy diet. ??? Exercise regularly. ??? Get plenty of sleep. ??? Avoid exposure to all substances that irritate the airway, especially to tobacco smoke. ??? Wash your hands often with soap and water to reduce the risk of infection. If soap and water are not available, use hand talent development analyst. ??? During flu season, avoid enclosed spaces that are crowded with people. General instructions ??? Drink enough fluid to keep your urine clear or pale yellow (unless you have a medical condition that requires fluid restriction). ??? Use a cool mist vaporizer. This humidifies the air and makes it easier for you to clear your chest when you cough. ??? If you have a home nebulizer and oxygen, continue to use them as told by your health care provider. ??? Keep all follow-up visits as told by your health care provider. This is important. How is this prevented? Stay up-to-date on pneumococcal and influenza (flu) vaccines. A flu shot is recommended every year to help prevent exacerbations. ??? Do not use any products that contain nicotine or tobacco, such as cigarettes and e-cigarettes. Quitting smoking is very important in preventing COPD from getting worse and in preventing exacerbations from happening as often. If you need help quitting, ask your health care provider. ??? Follow all instructions for pulmonary rehabilitation after a recent exacerbation. This can help prevent future exacerbations. ??? Work with your health care provider to develop and follow an action plan. This tells you what steps to take when you experience certain symptoms. Contact a health care provider if: ??? You have a worsening of your regular COPD symptoms. Get help right away if: ??? You have worsening shortness of breath, even when resting. ??? You have trouble talking. ??? You have severe chest pain. ??? You cough up blood. ??? You have a fever. ??? You have weakness, vomit repeatedly, or faint. ??? You feel confused. ??? You are not able to sleep because of your symptoms. ??? You have trouble doing daily activities. Summary ??? COPD exacerbations are episodes when breathing symptoms become much worse and require extra treatment above your normal treatment. ??? Exacerbations can be severe and even life threatening. Frequent COPD exacerbations can cause further damage to your lungs. ??? COPD exacerbations are usually triggered by infections such as the flu, colds, and even pneumonia. ??? Treatment for this condition depends on the severity and cause of the symptoms. You may need to be admitted to a hospital for treatment. ??? Quitting smoking is very important to prevent COPD from getting worse and to prevent exacerbations from happening as often. This information is not intended to replace advice given to you by your health care provider. Make sure you discuss any questions you have with your health care provider. Document Revised: 07/01/2018 Document Reviewed: 08/23/2017 [employer] Patient Education ?? 2020 [employer] Emergency Awareness and Preventative Care STROKE is an EMERGENCY Every Minute Counts Act FAST and Check for these signs: FACE Does the face look uneven? ARM Does one arm drift down? SPEECH Does their speech sound strange? TIME Call at any sign of stroke Stroke Risk Factors Atrial Fibrillation (irregular heartbeat) Diabetes Family history of stroke Heart Disease Heavy alcohol use High Blood Pressure High Cholesterol Physical inactivity and obesity Smoking Cigarette Smoking The facts are clear, cigarette smoking will shorten your life. Smoking can cause many illnesses along the way. As a healthcare provider, we recommend that you stop smoking. Assistance with quitting is available by contacting 0-307-HGRENOW. This is a free resource providing counseling, support, and referral. Or you may contact your personal physician. [facility]ice Suicide Prevention Lifeline: The National Suicide Prevention Lifeline is a national network of local crisis centers that provides free and confidential emotional support to people in suicidal crisis or emotional distress 24 hours a day, 7 days a week. Don't Wait! Stop a Heart Attack Before it Starts What is a heart attack? A heart attack is damage or to a part of the heart from severely decreased or lack of blood flow to the heart. Over time, arteries can become narrow from the buildup of fat and cholesterol, which is called plaque. The plaque can rupture causing a blood clot to form. When the blood clot forms, the artery can become severely narrowed or completely blocked, causing a heart attack. Heart attack is the leading cause of in the [place]. 85% of muscle damage occurs within the first 2 hours. Delay in the recognition of heart attack symptoms increases the chances of . Know the early symptoms of a heart attack: Nausea Feeling of fullness in chest Jaw Pain Pain that travels down one or both arms Fatigue/being tired Anxiety Back Pain Chest pressure, squeezing, or discomfort Shortness of breath Sweating, or a cold sweat Feeling of impending doom There are unusual signs of a heart attack, too! Women, the elderly, and diabetics may present with atypical symptoms: Fainting/dizziness Weakness Confusion Risk Factors for a Heart Attack Some heart disease risk factors, such as age and family history, cannot be changed. Others, like smoking and lack of exercise, can be changed. Smoking High Cholesterol High Blood Pressure Family History Obesity Age Gender (Males are at higher risk) Lack of Exercise Diabetes Diet Stress Excessive Alcohol Intake If you or someone you know is experiencing the signs and symptoms of a heart attack, DON???T DELAY. Call immediately and seek help. If someone collapses, perform CPR! Do not attempt to drive if you are having symptoms of heart attack. Hands-Only CPR Why Hands-Only CPR? Hands-Only CPR has been shown to be as effective as conventional CPR for cardiac arrests that occur outside of a hospital. Survival depends on immediately receiving CPR from someone nearby. How do you perform Hands-Only CPR? There are two easy steps: Call if you see a teen or adult collapse Push hard and fast in the center of the chest at a beat of 100 beats per minute. Save a life! 4 WAYS TO GET AHEAD OF SEPSIS SEPSIS is a MEDICAL EMERGENCY. Time matters! Infections put you and your family at risk for a life-threatening condition called sepsis. Sepsis is the body's extreme response to an infection. It is life-threatening, and without timely treatment, sepsis can rapidly lead to tissue damage, organ failure, and . Sepsis happens when an infection you already have-in your skin, lungs, urinary tract or somewhere else-triggers a chain reaction throughout your body. 1 PREVENT INFECTIONS Take good care of chronic conditions. Talk to your doctor about getting the recommended vaccines. 2 PRACTICE GOOD HYGIENE Wash your hands frequently. Keep cuts or open sores clean and covered until they are healed. 3 KNOW THE SYMPTOMS Confusion or disorientation Shortness of breath High heart rate Fever, shivering, or feeling very cold Extreme pain or discomfort Clammy or sweaty skin 4 ACT FAST Get medical care IMMEDIATELY if you suspect sepsis or if you have an infection that is not getting better or is getting worse. To learn more about sepsis and how to prevent infections, visit www.cdc.gov/sepsis. The examination and treatment you have received in the Emergency Department has been done to provide an appropriate evaluation and stabilizing treatment on an emergency basis only. Given the limited resources, it is not meant to be a substitute for complete medical care. The follow-up doctor you named will receive a copy of your records and all test reports. IT IS IMPORTANT THAT YOU SCHEDULE A FOLLOW-UP APPOINTMENT AND ARE RE-EVALUATED. You should report any new complaints, symptoms, or remaining problems at that time. IT IS IMPOSSIBLE FOR THE EMERGENCY DEPARTMENT TO RECOGNIZE AND TREAT ALL ELEMENTS OF INJURY OR ILLNESS IN A SINGLE VISIT. If you have been referred to a specialist physician, it means that we believe you may have a condition that requires the expertise of a specialist. These physicians work in partnership with the hospital and have agreed to see referred patients in their office for further evaluation. KEEP IN MIND THAT THE SPECIALIST HAS HIS/HER OWN OFFICE POLICIES WHICH MAY REQUIRE PROPER INSURANCE OR PAYMENT UP FRONT BEFORE THE SPECIALIST WILL SEE YOU. It is your responsibility to call the specialist physician to make an appointment. We do not have the ability to refer patients to specialists/physicians that work with specific insurance companies. Please be advised that all financial charges or billing practices are determined by that practice, not the hospital. If your insurance company requires that you see a specialist from their approved list, it is your responsibility to contact your insurance company to make those arrangements. It is also your responsibility to follow any other requirements of your insurance company necessary to obtain coverage for claims submitted. We will bill your insurance; however, you are responsible today for any co-pay amounts. You will receive a separate bill for any services you may have received including: emergency, radiology, or pathology physicians. Patient Name:CHRISSYDWAINEMICHELLE Santana I have received this information and was given the opportunity to ask questions. Patient/Assistant Director Of Security Name: Patient/Assistant Director Of Security Signature: Relationship to Patient: Clinician/Hospital Assistant Director Of Security Signature: Please Provide a Telephone Number Where You Can Be Reached: Is it Permissible To Leave a Message? Date: documented in this encounter Plan of Treatment Not on file documented as of this encounter Visit Diagnoses Not on filedocumented in this encounter
--- OUTSIDE RECORDS SUMMARY | 2025-02-06 14:05 | XMS_ITS | Encounter Summary ---
Author Organization [employer] ([place], [place], [place], [place]) Address [address] [place] [address] Care Team Providers Care Machine Setup Operator Name Role Phone Unavailable Primary Care Provider Unavailabl e Encounter Details Date Type Department Care Team (Late st Contact Info) Description 09/22/2021 Transcribed Document [facility] [place] [facility] [address] ProviderAlissa MD [address] [place] [address] Social History Tobacco Use Types Packs/Day Years Used Date Smoking Tobacco: Never Assessed Comments Unknown Sex and Gender Information Value Date Recorded Sex Assigned at Female 02/03/2022 6:37 PM CDT Legal Sex Female 4:29 PM CDT Gender Identity Female 02/03/2022 6:37 PM CDT Sexual Orientation Not on file documented as of this encounter Miscellaneous Notes * Cerner Conversion Note - Historical ProviderMD - 09/22/2021 4:31 PM ACID CONDITIONER [place] Suicide Severity Rating Scale (C-SSRS) Entered On: 09/22/2021 21:46 EST Performed On: 09/22/2021 21:44 EST by Leana Christine RN [place] Suicide Severity Rating Scale (C-SSRS) CSSRS Past Month Wish to be : No CSSRS Past Month Suicidal Thoughts : No CSSRS Lifetime Suicide Behavior : No Suicide Severity Rating Score : 0 Suicide Severity Rating : No Additional Care Required at this time Leana Christine RN - 09/22/2021 21:44 EST Electronically signed by [facility] Conversion Construction Cost Estimator Cerner at 11/19/2022 4:45 PM CDT documented in this encounter Plan of Treatment Not on file documented as of this encounter Visit Diagnoses Not on filedocumented in this encounter
--- OUTSIDE RECORDS SUMMARY | 2025-02-06 14:05 | XMS_ITS | Encounter Summary ---
Author Organization [employer] ([place], [place], [place], [place]) Address [address] [place] [address] Care Team Providers Care Insulation Manager Name Role Phone Unavailable Primary Care Provider Unavailabl e Encounter Details Date Type Department Care Team (Late st Contact Info) Description 09/22/2021 Transcribed Document [facility] [place] [address] [place] [address] ProviderAlissa MD [address] [place] [address] Social History Tobacco Use Types [...] - Historical ProviderMD - 09/22/2021 4:31 PM SAP PROJECT MANAGER [place] Violence Assessment Entered On: 09/22/2021 21:46 EST Performed On: 09/22/2021 21:44 EST by Leana Christine RN [place] Violence Assessment [place] Violence Checklist of Symptoms : None [place] Violence Symptoms Subtotal : 0 [place] Violence Symptoms Indicator : Low risk (0) Leana Christine RN - 09/22/2021 21:44 EST documented in this encounter Plan of Treatment Not on file documented as of this encounter Visit Diagnoses Not on filedocumented in this encounter
--- OUTSIDE RECORDS SUMMARY | 2025-02-06 14:05 | XMS_ITS | Encounter Summary ---
Author Organization [employer] ([place], [place], [place], [place]) Address [address] [place] [address] Care Team Providers Care Fruit Stuffer Name Role Phone Unavailable Primary Care Provider Unavailabl e Encounter Details Date Type Department Care Team (Late st Contact Info) Description 09/22/2021 Transcribed Document [facility] [place] [facility] [place] [address] ProviderlAissa MD [address] [place] [address] Social History Tobacco Use Types Packs/Day [...] Conversion Note - Historical ProviderMD - 09/22/2021 11:34 PM BOAT MECHANIC ED Discharge Entered On: 09/22/2021 23:34 EST Performed On: 09/22/2021 23:34 EST by Leana Christine RN Discharge Process Patient Disposition : Discharge Personal Belongings With Patient : Yes Patient Education Completed : Yes Teaching Evaluation : Verbalizes understanding IV Discontinued : Yes Nursing Documentation Completed : Yes Leana Christine RN - 09/22/2021 23:34 EST ED Discharge Discharge To : Home with ambulatory/outpatient follow-up Mode Of Departure : Ambulatory Accompanied By : Daughter Discharge Instructions Reviewed With, Opportunity For Questions Given : Patient Prescriptions Given to Patient : Electronically sent Leana Christine RN - 09/22/2021 23:34 EST Electronically signed by Interface, [facility] Conversion Small Battery Plate Assembler Cerner at 11/19/2022 4:48 PM CDT documented in this encounter Plan of Treatment Not on file documented as of this encounter Visit Diagnoses Not on filedocumented in this encounter
--- OUTSIDE RECORDS SUMMARY | 2025-02-06 14:05 | XMS_ITS | Clinical Summary ---
Author Organization [employer] ([place], [place], [place], [place]) Address [address] [place] [address] Care Team Providers Care Char Filter Operator Helper Name Role Phone Unavailable Primary Care Provider Unavailabl e Social History Tobacco Use Types Packs/Day Years Used Date Smoking Tobacco: Never Assessed Comments Unknown Sex and Gender Information Value Date Recorded Sex Assigned at Female 02/03/2022 6:37 PM CDT Legal Sex Female 4:29 PM CDT Gender Identity Female 02/03/2022 6:37 PM CDT Sexual Orientation Not on file Plan of Treatment Not on file
--- OUTSIDE RECORDS SUMMARY | 2025-02-06 14:05 | XMS_ITS | Encounter Summary ---
Author Organization Healthcare Address [address] [place] [address] Care Team Providers Care It Software Engineer Name Role Phone Ivonne Vasquez APRN Primary Care Provider [phone] Encounter Details Date Type Department Care Team (Late Contact Info) Description 02/01/2025 Orders Only [facility] [address] [phone] Giselle Graf CKD (chronic kidney disease) stage 3, GFR 30-59 ml/min (CMS/HCC) (Primary Dx); Vitamin D insufficiency Social History Tobacco Use Types Packs/Day Years Used Date Smoking Tobacco: Never Assessed Comments Unknown Sex and Gender Information Value Date Recorded Sex Assigned at Not on file Legal Sex Female 8:37 PM EDT Gender Identity Not on file Sexual Orientation Not on file documented as of this encounter Plan of Treatment Upcoming Encounters Date Type Department Care Team (Late Contact Info) Description 03/16/2025 10:00 AM EDT Office Visit [facility] [address] [place] [phone] Naveed Diaz MD [address] [place] [phone] Scheduled Orders Name Type Priority Associated Diagnoses Orde r Schedule Renal Function Panel, Plasma Lab Routine CKD (chronic kidney disease) stage 3, GFR 30-59 ml/min (CMS/HCC) Expected: 02/01/2025 (Approximate), Expires: 08/04/2026 CBC and Differential Lab Routine CKD (chronic kidney disease) stage 3, GFR 30-59 ml/min (CMS/[facility]) Expected: 02/01/2025 (Approximate), Expires: 08/04/2026 Creatinine, Random, Urine Lab Routine CKD (chronic kidney disease) stage 3, GFR 30-59 ml/min (CMS/HCC) Expected: 02/01/2025 (Approximate), Expires: 08/04/2026 Protein, Random, Urine with Creatinine Lab Routine CKD (chronic kidney disease) stage 3, GFR 30-59 ml/min (CMS/HCC) Expected: 02/01/2025 (Approximate), Expires: 08/04/2026 Urinalysis with reflex microscopic (Culture NOT Included) Lab Routine CKD (chronic kidney disease) stage 3, GFR 30-59 ml/min (CMS/HCC) Expected: 02/01/2025 (Approximate), Expires: 08/04/2026 PTH Intact Total Lab Routine CKD (chronic kidney disease) stage 3, GFR 30-59 ml/min (CMS/[facility]) Vitamin D insufficiency Expected: 02/01/2025 (Approximate), Expires: 08/04/2026 Vitamin D 25 Hydroxy Lab Routine CKD (chronic kidney disease) stage 3, GFR 30-59 ml/min (CMS/[facility]) Vitamin D insufficiency Expected: 02/01/2025 (Approximate), Expires: 08/04/2026 documented as of this encounter Visit Diagnoses Diagnosis CKD (chronic kidney disease) stage 3, GFR 30-59 ml/min (CMS/HCC)- Primary Chronic kidney disease, Stage III (moderate) Vitamin D insufficiency documented in this encounter Care Teams It Software Engineer Relationship Specialty Start Date End Date Ivonne Vasquez APRN [address] [place] [address] PCP - General 06/23/24 documented as of this encounter
--- OUTSIDE RECORDS SUMMARY | 2025-02-06 14:05 | XMS_ITS | Clinical Summary ---
Author Organization Healthcare Address [address] [place] [address] Care Team Providers Care Sky Cap Name Role Phone Ivonne Vasquez APRN Primary Care Provider [phone] Encounters Date Type Department Care Team Description 02/01/2025 Orders Only [facility] [address] [place] [phone] Giselle Graf CKD (chronic kidney disease) stage 3, GFR 30-59 ml/min (CMS/HCC) (Primary Dx); Vitamin D insufficiency from Last 3 Months Social History Tobacco Use Types Packs/Day Years Used Date Smoking Tobacco: Never Assessed Comments Unknown Sex and Gender Information Value Date Recorded Sex Assigned at Not on file Legal Sex Female 8:37 PM EDT Gender Identity Not on file Sexual Orientation Not on file Plan of Treatment Upcoming Encounters Date Type Department Care Team (Late st Contact Info) Description 03/16/2025 10:00 AM EDT Office Visit [facility] [address] [place] [phone] Naveed Diaz MD [address] [place] [phone] Health Maintenance Due Date Last Done Comments [facility]-Bone Density Scan 1940 [facility]-Depression Screening 1940 [facility]-Medicare Annual Wellness (AWV) 1940 [facility]-/Child/Adol SDOH Screenings 1940 [facility]- SDOH Screenings 1958 [facility]-Adult SDOH Screenings 1958 [facility]-DTaP,Tdap,and Td Vaccines (1 - Tdap) 1959 [facility]-RSV Vaccine: 60+ Years or (1 - 1-dose 75+ series) 2015 [facility]-Zoster Vaccines (3 of 3) 07/07/2018 05/12/2018, 02/14/2016 [id number] Vaccine ( season) 2024 05/10/2024, 06/13/2021, 10/19/2020, Additional history exists [facility]-Influenza Vaccine (#1) 04/02/202505/10, 05/25/2023, 04/08/2021, Additional history exists [facility]-Pneumococcal Vaccine: 50+ Years Completed 12/15/2022, 03/23/2017, 03/21/2016 HPV Vaccines Aged Out No longer eligi ble based on patient's age to complete this topic [facility]-HIB Vaccines Aged Out No longer e ligible based on patient's age to complete this topic [facility]-Hepatitis A Vaccines Aged Out No longer eligible based on patient's age to complete this topic [facility]-IPV Vaccines Aged Out No longer e ligible based on patient's age to complete this topic [facility]-Rotavirus Vaccines Aged Out No lo nger eligible based on patient's age to complete this topic Insurance [facility] MEDIC[facility] Care Teams Sky Cap Relationship Specialty Start Date End Date Ivonne Vasquez APRN [address] [place] [address] PCP - General 06/23/24
--- OUTSIDE RECORDS SUMMARY | 2025-02-06 14:05 | XMS_ITS | Encounter Summary ---
Author Organization [employer] ([place], [place], [place], [place]) Address [address] [place] [address] Care Team Providers Care Fisher Crab Name Role Phone Unavailable Primary Care Provider Unavailabl e Encounter Details Date Type Department Care Team (Late st Contact Info) Description 09/23/2021 Transcribed Document [facility] [place] [address] ProviderAlissa MD [address] [place] [address] Social History Tobacco Use Types Packs/Day [...] Cerner Conversion Note - Historical ProviderMD - 09/23/2021 9:58 AM SLAGGER CR Chest 2 Vws Ordered: 09/22/2021 Auth (Verified) Reason for Exam: soa 09/22/2021 20:36 09/23/2021 09:58 (JERED MARTIN, APR) Reviewed by Provider, No further action required, Called and Left Message x1 documented in this encounter Plan of Treatment Not on file documented as of this encounter Visit Diagnoses Not on filedocumented in this encounter
--- OUTSIDE RECORDS SUMMARY | 2025-02-06 14:05 | XMS_ITS | Referral Summary ---
Author Organization [employer] ([place], [place], [place], [place]) Address [address] [place] [address] Care Team Providers Care Senior Manager Asset Protection Name Role Phone Unavailable Primary Care Provider [...]
--- OUTSIDE RECORDS SUMMARY | 2025-02-06 14:05 | XMS_ITS | Encounter Summary ---
Author Organization [employer] ([place], [place], [place], [place]) Address [address] [place] [address] Care Team Providers Care Steam Tender Name Role Phone Unavailable Primary Care Provider Unavailabl e Encounter Details Date Type Department Care Team (Late st Contact Info) Description 09/22/2021 Transcribed Document [facility] [place] [facility] [place] [address] ProviderAlissa MD [address] [place] [address] Social History Tobacco Use Types Packs/Day [...] - Historical ProviderMD - 09/22/2021 4:31 PM JOIST SETTER ED Assessment Entered On: 09/22/2021 21:46 EST Performed On: 09/22/2021 21:44 EST by Leana Christine RN ED Quick Look Assessment Level of Consciousness : Alert, Awake Affect/Behavior : Appropriate, Calm Orientation : Oriented x 4 Skin Temperature : Warm Skin Description : Normal for ethnicity Leana Christine RN - 09/22/2021 21:44 EST ED General-Functional Assess Information Obtained From : Patient Communication Barrier : None Primary Language : [place] Any Spiritual/Cultural Needs or Requests : No Currently in Unsafe Situation : No Leana Christine RN - 09/22/2021 21:44 EST Social Habits Smoking Status : Never (less than 100 in lifetime; none in last 30 days) Smokeless Tobacco Status : Never Desires Tobacco Cessation Calc : 0 Leana Christine RN - 09/22/2021 21:44 EST Social History (As Of: 09/22/2021 21:46:32 EST) Tobacco: Smoking Status Former smoker. Years of Use: 20. Packs/Tins Daily: 3. Used Tobacco, but Quit No. Last Used: quit in 1987. (Last Updated: 06/15/2014 10:44:06 EST by VIRI MIDDLETON, CHANNING) Alcohol: Use in Last 12 Months: No. (Last Updated: 06/15/2014 10:44:12 EST by VIRI MIDDLETON, CHANNING) Exercise: Exercise type: Walking. (Last Updated: 06/15/2014 10:44:31 EST by VIRI MIDDLETON, RN) Home/Environment: Lives with Alone. Living situation: Home with assistance. Alcohol abuse in household: No. Substance abuse in household: No. Smoker in household: No. Injuries/Abuse/Neglect in household: No. Feels unsafe at home: No. Safe place to go: No. Agency(s)/Others notified: No. (Last Updated: 06/15/2014 10:45:01 EST by VIRI MIDDLETON, RN) Employment/School: Retired (Last Updated: 06/15/2014 10:44:21 EST by VIRI MIDDLETON, RN) Respiratory Respiratory Assessment WDL : WDL with exceptions (Comment: pt c/o sob X 2 days.pt states she was seen at [facility] [place] earlier today and flu and covid was negative [Leana Christine RN - 09/22/2021 21:44 EST] ) Leana Christine RN - 09/22/2021 21:44 EST Musculoskeletal Musculoskeletal Assessment WDL : WDL with exceptions (Comment: pt c/o bilateral shoulder pain X 2 days. pt denies any fall or known injury. [Leana Christine RN - 09/22/2021 21:44 EST] ) Leana Christine RN - 09/22/2021 21:44 EST Electronically signed by [facility] Conversion Framing Machine Tender Maxinener at 11/19/2022 4:56 PM CDT documented in this encounter Plan of Treatment Not on file documented as of this encounter Visit Diagnoses Not on filedocumented in this encounter
--- OUTSIDE RECORDS SUMMARY | 2025-02-06 14:05 | XMS_ITS | Encounter Summary ---
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 sleeping more than normal. has been pale in color. fever/chills. no n/v/d. does have cough/congestion. treated at a clinic earlier today, flu and covid tests negative. onset s/s 2days ago Ki Pandey RN - 09/22/2021 17:09 EST Triage Date/Time : 09/22/2021 17:05 EST Ki Pandey RN - 09/22/2021 17:05 EST DCP GENERIC CODE Tracking Group : [facility] ED Tracking Acuity : 3 - Urgent Ki Pandey RN - 09/22/2021 17:05 EST Mode of Arrival : Ambulatory Transported to ED by : Private vehicle To Room Via : Ambulate Accompanied By : Daughter ED Vital Signs : Document Height & Weight : Document ED Allergies : Document ED Reason for Visit : Document Ki Pandey RN - 09/22/2021 17:05 EST Infectious Disease History Does patient have symptoms of COVID-19? : Yes Has the Patient Been Tested for COVID-19 in the last 14 days? : Yes, Patient stated results Negative Where and When was COVID19 testing completed? : 09/22/21 Does the Patient state known exposure to a COVID-19 positive case in the last 14 days? : No Patient Vaccinated for COVID-19 : Fully vaccinated Ki Pandey RN - 09/22/2021 17:05 EST Infectious Disease Risk Screening Grid Cough < 2 wks of unknown origin : Yes Cough > 2 weeks : NO Blood in Sputum : NO Fever or self-reported Fever : NO Rash of unknown origin : NO Headache : NO Stiff neck : NO Night Sweats : NO Unexplained Weight Loss : NO Diarrhea (3 episode per day) : NO Ki Pandey RN - 09/22/2021 17:05 EST Physical contact outside [place] in the last 30 days : No Hospitalized in [place] : No Infectious Disease History : Influenza, Measles, Mumps INF Disease TB Screening Calc : 1 INF Disease Recent Travel Calc : 0 iK Pandey RN - 09/22/2021 17:05 EST Vital Signs ED Temperature Source : Temporal artery scanning Temperature Mode : Fahrenheit Temperature, Fahrenheit : 97 Deg F Clinical Temperature, C : 36.1 Deg C Oxygen Therapy Mode : Room air Peripheral Pulse Rate : 77 bpm Respiratory Rate : 18 Breaths/Min Systolic Blood Pressure : 129 mmHg Diastolic Blood Pressure : 61 mmHg Oxygen Saturation : 91 % (LOW) Ki Pandey RN - 09/22/2021 17:05 EST Allergy (As Of: 09/22/2021 17:08:23 EST) Allergies (Active) No Known Allergies Estimated Onset Date: Unspecified ; Created By: VIRI MIDDLETON RN; Reaction Status: Active ; Category: Drug ; Substance: No Known Allergies ; Type: Allergy ; Updated By: VIRI MIDDLETON RN; Reviewed Date: 09/22/2021 17:06 EST Diagnosis Control ED (As Of: 09/22/2021 17:08:23 EST) Problems(Active) Allergic rhinitis (SNOMED CT :924464773 ) Name of Problem: Allergic rhinitis ; Recorder: VIRI MIDDLETON RN; Confirmation: Confirmed ; Classification: Patient Stated ; Code: [id number] ; Contributor System: PaydiantChart ; Last Updated: 06/15/2014 10:15 EST ; Life Cycle Date: 06/15/2014 ; Life Cycle Status: Active ; Vocabulary: SNOMED CT Anemia (SNOMED CT :510412826 ) Name of Problem: Anemia ; Recorder: VIRI MIDDLETON RN; Confirmation: Confirmed ; Classification: Patient Stated ; Code: [id number] ; Contributor System: PaydiantChart ; Last Updated: 06/15/2014 10:20 EST ; Life Cycle Date: 06/15/2014 ; Life Cycle Status: Active ; Vocabulary: SNOMED CT Angina (SNOMED CT :146002806 ) Name of Problem: Angina ; Recorder: VIRI MIDDLETON RN; Confirmation: Confirmed ; Classification: Patient Stated ; Code: [id number] ; Contributor System: PowerChart ; Last Updated: 06/15/2014 10:16 EST ; Life Cycle Date: 06/15/2014 ; Life Cycle Status: Active ; Vocabulary: SNOMED CT Arthritis (SNOMED CT :5106957 ) Name of Problem: Arthritis ; Recorder: VIRI MIDDLETON RN; Confirmation: Confirmed ; Classification: Patient Stated ; Code: [id number] ; Contributor System: PowerChart ; Last Updated: 06/15/2014 10:19 EST ; Life Cycle Date: 06/15/2014 ; Life Cycle Status: Active ; Vocabulary: SNOMED CT Bronchitis (SNOMED CT :74495682 ) Name of Problem: Bronchitis ; Recorder: VIRI MIDDLETON RN; Confirmation: Confirmed ; Classification: Patient Stated ; Code: [id number] ; Contributor System: PaydiantChart ; Last Updated: 06/15/2014 10:17 EST ; Life Cycle Date: 06/15/2014 ; Life Cycle Status: Active ; Vocabulary: SNOMED CT Cataract (SNOMED CT :[id number] ) Name of Problem: Cataract ; Recorder: VIRI MIDDLETON RN; Confirmation: Confirmed ; Classification: Patient Stated ; Code: [id number] ; Contributor System: PowerChart ; Last Updated: 06/15/2014 10:15 EST ; Life Cycle Date: 06/15/2014 ; Life Cycle Status: Active ; Vocabulary: SNOMED CT COPD (SNOMED CT :23410874 ) Name of Problem: COPD ; Recorder: VIRI MIDDLETON RN; Confirmation: Confirmed ; Classification: Patient Stated ; Code: [id number] ; Contributor System: PowerChart ; Last Updated: 06/15/2014 10:17 EST ; Life Cycle Date: 06/15/2014 ; Life Cycle Status: Active ; Vocabulary: SNOMED CT Coronary artery disease (SNOMED CT :7300058589 ) Name of Problem: Coronary artery disease ; Recorder: VIRI MIDDLETON RN; Confirmation: Confirmed ; Classification: Patient Stated ; Code: [id number] ; Contributor System: PowerChart ; Last Updated: 06/15/2014 10:16 EST ; Life Cycle Date: 06/15/2014 ; Life Cycle Status: Active ; Vocabulary: SNOMED CT Diabetes mellitus type I (SNOMED CT :81267479 ) Name of Problem: Diabetes mellitus type I ; Recorder: VIRI MIDDLETON RN; Confirmation: Confirmed ; Classification: Patient Stated ; Code: [id number] ; Contributor System: PowerChart ; Last Updated: 06/15/2014 10:20 EST ; Life Cycle Date: 06/15/2014 ; Life Cycle Status: Active ; Vocabulary: SNOMED CT GERD - Gastro-esophageal reflux disease (SNOMED CT :8496040000 ) Name of Problem: GERD - Gastro-esophageal reflux disease ; Recorder: VIRI MIDDLETON RN; Confirmation: Confirmed ; Classification: Patient Stated ; Code: [id number] ; Contributor System: PowerChart ; Last Updated: 06/15/2014 10:18 EST ; Life Cycle Date: 06/15/2014 ; Life Cycle Status: Active ; Vocabulary: SNOMED CT Heart valve (SNOMED CT :531518527 ) Name of Problem: Heart valve ; Recorder: VIRI MIDDLETON RN; Confirmation: Confirmed ; Classification: Patient Stated ; Code: [id number] ; Contributor System: PowerChart ; Last Updated: 06/15/2014 10:16 EST ; Life Cycle Date: 06/15/2014 ; Life Cycle Status: Active ; Vocabulary: SNOMED CT High blood pressure (SNOMED CT :88524105 ) Name of Problem: High blood pressure ; Recorder: VIRI MIDDLETON RN; Confirmation: Confirmed ; Classification: Patient Stated ; Code: 72737901 ; Contributor System: PaydiantChart ; Last Updated: 06/15/2014 10:16 EST ; Life Cycle Date: 06/15/2014 ; Life Cycle Status: Active ; Vocabulary: SNOMED CT Hyperlipidemia (SNOMED CT :78109714 ) Name of Problem: Hyperlipidemia ; Recorder: VIRI MIDDLETON RN; Confirmation: Confirmed ; Classification: Patient Stated ; Code: 61285723 ; Contributor System: PaydiantChart ; Last Updated: 06/15/2014 10:16 EST ; Life Cycle Date: 06/15/2014 ; Life Cycle Status: Active ; Vocabulary: SNOMED CT Impaired vision (SNOMED CT :06710801 ) Name of Problem: Impaired vision ; Recorder: VIRI MIDDLETON RN; Confirmation: Confirmed ; Classification: Patient Stated ; Code: [id number] ; Contributor System: PaydiantChart ; Last Updated: 06/15/2014 10:15 EST ; Life Cycle Date: 06/15/2014 ; Life Cycle Status: Active ; Vocabulary: SNOMED CT Myocardial infarction (SNOMED CT :22436230 ) Name of Problem: Myocardial infarction ; Recorder: VIRI MIDDLETON RN; Confirmation: Confirmed ; Classification: Patient Stated ; Code: 65449639 ; Contributor System: PowerChart ; Last Updated: 06/15/2014 10:17 EST ; Life Cycle Date: 06/15/2014 ; Life Cycle Status: Active ; Vocabulary: SNOMED CT Peripheral neuropathy (SNOMED CT :9026194356 ) Name of Problem: Peripheral neuropathy ; Recorder: VIRI MIDDLETON RN; Confirmation: Confirmed ; Classification: Patient Stated ; Code: [id number] ; Contributor System: PaydiantChart ; Last Updated: 06/15/2014 10:20 EST ; Life Cycle Date: 06/15/2014 ; Life Cycle Status: Active ; Vocabulary: SNOMED CT Pneumonia (SNOMED CT :813383616 ) Name of Problem: Pneumonia ; Recorder: VIRI MIDDLETON RN; Confirmation: Confirmed ; Classification: Patient Stated ; Code: 442867931 ; Contributor System: Socset. ; Last Updated: 06/15/2014 10:17 EST ; Life Cycle Date: 06/15/2014 ; Life Cycle Status: Active ; Vocabulary: SNOMED CT Sleep apnea (SNOMED CT :749965886 ) Name of Problem: Sleep apnea ; Recorder: VIRI MIDDLETON RN; Confirmation: Confirmed ; Classification: Patient Stated ; Code: 187851619 ; Contributor System: Socset. ; Last Updated: 06/15/2014 10:17 EST ; Life Cycle Date: 06/15/2014 ; Life Cycle Status: Active ; Vocabulary: SNOMED CT Diagnoses(Active) Shortness of breath Date: 09/22/2021 ; Diagnosis Type: Reason For Visit ; Confirmation: Complaint of ; Clinical Dx: Shortness of breath ; Classification: Medical ; Clinical Service: Non-Specified ; Code: PNED ; Probability: 0 ; Diagnosis Code: [id number] ED Height and Weight Height Source : Stated Height Entry Format : [place] Height, Feet : 5 ft(Converted to: 152 cm, 60 Inch) Height, Inches : 2 Inch(Converted to: 0 ft 2 Inch, 5.08 cm) Clinical Height : 157.48 cm Weight Source, ED : Critical estimated dosing weight Weight Entry Format : [place] Weight, Pounds : 170 lb Clinical Dosing Weight : 77.27 kg Body Surface Area (BSA) : 1.79 m2 Body Mass Index : 31.2 kg/m2 (HI) [place] Body Weight (IBW) : 49.73 kg Ki Pandey RN - 09/22/2021 17:05 EST documented in this encounter Plan of Treatment Not on file documented as of this encounter Visit Diagnoses Not on filedocumented in this encounter
--- OUTSIDE RECORDS SUMMARY | 2025-02-06 14:06 | XMS_ITS | Encounter Summary ---
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
--- OUTSIDE RECORDS SUMMARY | 2025-02-06 14:06 | XMS_ITS | Encounter Summary ---
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 sleeping more than normal. has been pale in color. fever/chills. no n/v/d. does have cough/congestion. treated at a clinic earlier today, flu and covid tests negative. onset s/s 2days ago (Modified) . History of Present Illness The patient presents with Patient is an 81-year-old female with a history of COPD diabetes GERD hypertension hyperlipidemia CAD peripheral neuropathy who presents to the emergency department with complaints of bilateral shoulder and upper back pain she states that it feels like previous pneumonias. She states that she has had some chills and subjective fevers she also complains of cough and congestion. Patient was seen in urgent treatment center earlier and tested negative for flu and Covid she was given a steroid shot which helped with some of her symptoms however she continues to be concerned about pneumonia and decided to come to the emergency department. She denies headache dizziness blurred vision chest pain abdominal pain nausea vomiting diarrhea dysuria hematuria numbness tingling decreased range of motion lower extremity edema or rash.. Review of Systems Additional review of systems information: All other systems reviewed and otherwise negative. Health Status Allergies: Allergic Reactions (Selected) No Known Allergies. Medications: (Selected) Prescriptions Prescribed doxycycline hyclate 100 mg oral capsule: 1 Cap, Oral, BID, for 10 Day(s), 20 Cap, 0 Refill(s) Documented Medications Documented Actos 30 mg oral tablet: 1 Tab, Oral, Daily, 30 Tab Aspirin Low Dose: 81 mg, Oral, Daily Calcium 600+D: 1 Tab, Oral, Daily Lantus Solostar Pen: 80 Units, SubCutaneous, Daily Lasix 20 mg oral tablet: 1 Tab, Oral, Daily, 30 Tab Metoprolol Succinate ER: 25, Oral, Daily Multivitamins and Minerals: 1, Oral, Daily Occuplex oral capsule: 1 Cap, Oral, Daily, 90 Cap PRAVAstatin: 60 mg, Oral, At Bedtime Singulair 10 mg oral tablet: See Instructions, takes only as needed. Ventolin HFA 90 mcg/inh inhalation aerosol: See Instructions, 2 Puff Inhalatio only as needed. Vitamin D3 2000 intl units oral capsule: 1 Cap, Oral, Daily Zyrtec 10 mg oral tablet: 1 Tab, Oral, Daily, 10 Tab, PRN: for allergy symptoms amlodipine 5 mg oral tablet: 1 Tab, Oral, Daily, 30 Tab gabapentin 100 mg oral capsule: 2 Cap, Oral, TID glipiZIDE 10 mg oral tablet: 1 Tab, Oral, Daily, 30 Tab isosorbide mononitrate 60 mg oral tablet, extended release: 1 Tab, Oral, QAM, 30 Tab potassium chloride 20 mEq oral tablet, extended release: 1 Tab, Oral, TID. Immunizations: Per nurse's notes. Past Medical/ Family/ Social History Medical history Reviewed as documented in chart. Surgical history: cabg 2002. gall bladder. cataracts and laser. hysterectomy., Reviewed as documented in chart. Family history: No family history items have been selected or recorded., Reviewed as documented in chart. Social history: Social & Psychosocial Habits Alcohol 06/15/2014 Alcohol Use in Last Twelve Months No Employment/School 06/15/2014 Status: Retired Exercise 06/15/2014 Exercise type: Walking Home/Environment 06/15/2014 Lives with: Alone Living situation: Home with assistance Alcohol abuse in household: No Substance abuse in household: No Smoker in household: No Injuries/Abuse/Neglect in household: No Feels unsafe at home: No Safe place to go: No Agency(s)/Others notified: No Tobacco 06/15/2014 Smoking Status Former smoker Years of Tobacco Use 20 Packs/Tins Daily 3 Used Tobacco, but Quit No Month Tobacco Last Used quit in 1987 . Problem list: Active Problems (18) Allergic rhinitis Anemia Angina Arthritis Bronchitis Cataract COPD Coronary artery disease Diabetes mellitus type I GERD - Gastro-esophageal reflux disease Heart valve High blood pressure Hyperlipidemia Impaired vision Myocardial infarction Peripheral neuropathy Pneumonia Sleep apnea , per nurse's notes. Physical Examination Vital Signs Vital Signs/Vital Measures 09/22/2021 17:05 EST Systolic Blood Pressure 129 mmHg Diastolic Blood Pressure 61 mmHg Temperature Source Temporal artery scanning Temperature Mode Fahrenheit Temperature, Fahrenheit 97 Deg F Clinical Temperature, C 36.1 Deg C Peripheral Pulse Rate 77 bpm Respiratory Rate 18 Breaths/Min Oxygen Saturation 91 % LOW Oxygen Therapy Mode Room air . Measurements 09/22/2021 17:05 EST Height Source Stated Height Entry Format [place] Height/Length, JAPANESE (ft) 5 ft Height/Length JAPANESE 2 Inch CLINICALHEIGHT 157.48 cm [place] Body Weight 49.73 kg Weight Source, ED Critical estimated dosing weight Weight Entry Format [place] Weight Croatian lb 170 lb CLINICALWEIGHT 77.27 kg Body Surface Area (BSA) 1.79 m2 Body Mass Index 31.2 kg/m2 HI . Oxygen Saturation 09/22/2021 17:05 EST Oxygen Saturation 91 % LOW . General: Alert, no acute distress. Skin: Warm, dry, pink, intact. Head: Normocephalic, atraumatic. Neck: Supple, trachea midline. Eye: Normal conjunctiva. Ears, nose, mouth and throat: Oral mucosa moist. Cardiovascular: Regular rate and rhythm, Normal peripheral perfusion. Respiratory: Respirations are non-labored, Coarse breath sounds bilaterally. Chest wall: No tenderness. Back: Nontender, Normal range of motion. Musculoskeletal: Normal ROM, normal strength. Gastrointestinal: Soft, Nontender, Non distended. Genitourinary Neurological: Alert and oriented to person, place, time, and situation, No focal neurological deficit observed, normal sensory observed, normal motor observed, normal speech observed, normal coordination observed. Psychiatric: Cooperative, appropriate mood & affect. Medical Decision Making Differential Diagnosis: Pneumonia, bronchitis, viral syndrome. Documents reviewed: Emergency department nurses' notes. 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 Results review: Lab results : Lab Results 09/22/2021 23:04 EST Device Comment 1 09/22/2021 21:38 EST Device Comment 1 09/22/2021 23:04 EST Glucose POC2 311 mg/dL HI 09/22/2021 21:38 EST Glucose POC2 502 mg/dL CRIT 09/22/2021 19:48 EST Sodium Level 133 mmol/L LOW Potassium Level 4.9 mmol/L Chloride Level 99 mmol/L LOW Carbon Dioxide Level 29 mmol/L Anion Gap 10 Glucose Level 555 mg/dL CRIT Blood Urea Nitrogen 34 mg/dL HI Creatinine Level 1.70 mg/dL HI eGFR 35 mL/min/1.73m2 LOW eGFR NonAfrican 29 mL/min/1.73m2 LOW Bun/Creatinine 20.0 Calcium Level 8.9 mg/dL Protein Total 7.7 Gram/dL Albumin Level 3.7 Gram/dL Globulin 4.0 Gram/dL A/G Ratio 0.9 LOW Bilirubin Total 0.6 mg/dL Alk Phos 110 Units/Liter AST 14 Units/Liter ALT 15 Units/Liter Troponin I High Sensitivity 5.0 pg/mL WBC 9.6 K/uL RBC 4.46 Million/uL Hgb 13.5 g/dL Hct 41.4 % MCV 92.8 fL MCH 30.3 pg MCHC 32.6 Gram/dL Platelet Count 180 K/uL MPV 10.3 fL RDW 12.8 % Neut % 85.3 % HI Neut # 8.23 K/uL HI Lymph % 11.9 % LOW Lymph # 1.15 x10(3)/uL [place] % 2.1 % LOW [place] # 0.20 K/uL Eos % 0.0 % Eos # 0.00 x10(3)/uL Baso % 0.3 % Baso # 0.03 x10(3)/uL Slide Review No IG# 0.04 x10(3)/uL IG% 0.40 % . Radiology results: Radiology Results (Last 48 hours) [id number] -- 09/22/2021 16:31 CR Chest 2 Vws (09/22/2021 17:28) Result: EXAMINATION TECHNIQUE:Two-view chestCLINICAL HISTORY:Shortness of breath.COMPARISON:None.FINDINGS:Median sternotomy and CABG. No dense consolidation. No pneumothorax orpleural effusion. Normal heart size.IMPRESSION:No acute cardiopulmonary findings.Images personally reviewed, interpreted and dictated by Jv Javed . Notes: I discussed with the patient that I suspect her blood sugar is due to the steroid injection she had this morning, advised that she monitor it closely for the next couple of days and continue her insulin as prescribed, return to the emergency department with elevated blood sugar she cannot control or new symptoms. Patient verbally expressed understanding and agreement with treatment plan. Impression and Plan Diagnosis COPD exacerbation - Discharge, Medical Hyperglycemia - Discharge, Medical Plan Condition: Improved, Stable. Disposition: Discharged Admit/Transfer/Discharge: Discharge (Order): Start: 09/22/2021 23:14 EST, Discharge to: Home. Prescriptions: Prescription Care Management Assistant Pharmacy: doxycycline hyclate 100 mg oral capsule (Prescribe): 1 Cap, Oral, BID, for 10 Day(s), 20 Cap, 0 Refill(s). Patient was given the following educational materials: Chronic Obstructive Pulmonary Disease Exacerbation, Hyperglycemia. Follow up with: [facility] Within 2 to 3 days Take medication as prescribed, follow-up with PCP, return to the emergency department with new or worsening symptoms. Counseled: Patient, Family, Regarding diagnosis, Regarding diagnostic results, Regarding treatment plan, Regarding prescription, Patient indicated understanding of instructions. documented in this encounter Plan of Treatment Not on file documented as of this encounter Visit Diagnoses Not on filedocumented in this encounter
[2025-02-06 14:10] LABS: Microscopic, Urine URINE MICROSCOPIC (MICROSCOPIC)
[2025-02-06 14:48] LABS: Hematocrit 41.4 % (37.0-47.0); Hemoglobin 13.8 g/dL (12.2-16.2); Immature Granulocytes % 0.3 %; Mean Corpuscular HGB Conc 33.3 g/dL (31.8-35.4); Mean Corpuscular Hemoglobin 31.3 pg (27.0-31.2); Mean Corpuscular Volume 93.9 fl (81-99); Nucleated Red Blood Cells % 0 %; Platelet Count 219 K/mm3 (142-424); Red Blood Count 4.41 M/mm3 (4.20-5.40); Red Cell Distribution Width-SD 43.8 fL; White Blood Count 9.8 K/mm3 (4.8-10.8)
[2025-02-06 15:20] LABS: Albumin Level 4.4 g/dl (3.5-5.0); Anion Gap 17.1 mEq/L (5-15); Blood Urea Nitrogen 28 mg/dl (7-17); Calcium 9.5 mg/dl (8.4-10.2); Carbon Dioxide 29 mmol/L (22.0-30.0); Chloride 100 mmol/L (98-107); Creatinine,Serum 1.30 mg/dl (0.52-1.04); Estimated Glomerular Filt Rate 39 ml/min (>60); GFR (African American) 47 ML/MIN (>60); Glucose 148 mg/dl (74-100); Phosphorous 2.7 mg/dl (2.5-4.5); Potassium 5.1 mmoL/L (3.5-5.1); Sodium 141 mmol/L (136-145)
[2025-02-06 15:30] LABS: Bilirubin,Urine Negative (Negative); Color,Urine YELLOW (Yellow); Glucose,Urine (UA) 3+ (Negative); Ketones,Urine Negative (Negative); Leukocyte Esterase,Urine 2+ (Negative); PH,Urine 5.5 (5.0-8.5); Protein,Urine Negative (Negative); Specific Gravity, Urine 1.010 (1.005-1.030); Urobilinogen,Urine 0.2 EU/dl (0.2)
[2025-02-06 15:36] LABS: 25-OH Vitamin D, Total 56.9 ng/mL (30-100)
[2025-02-06 18:49] LABS: Bacteria,Urine 4+ /lpf; Squamous Epithelial Cell,Urine 20-50 #/hpf (0-5); WBC,Urine 50-100 #/hpf (0-3)
== END 2025-02-06 23:59 | disposition home or self-care (01) ==
LOC: LAB 14:04
PROVIDERS: PCP Family Medicine; Visit Provider Student in an Organized Health Care Education/Training Program
DX: N18.30 Chronic kidney disease, stage 3 unspecified (principal)
CPT/HCPCS: 36415; 80069; 81001; 82306; 82570; 83970; 85025; 87086

== ENCOUNTER 2025-03-16 14:10 | Outpatient (CLI) | payer MEDICARE, MEDICAID, SELFPAY ==
--- OUTSIDE RECORDS SUMMARY | 2025-03-16 10:00 | XMS_ITS | Encounter Summary ---
Author Organization [facility] Address [address] [place] [address] Care Team Providers Care Dictaphone Mechanic Name Role Phone Ivonne Vasquez APRN Primary Care Provider [phone] Reason for Referral * Consultation (Routine) - Authorized Specialty Diagnoses / Procedures Referred By Contac t Referred To Contact Diagnoses Type 2 diabetes mellitus with stage 3 chronic kidney disease, with long-term current use of insulin, unspecified whether stage 3a or 3b CKD (CMS/HCC) Naveed Diaz MD [address] [place] [address] Phone: tel: fax: Referral ID Status Reason Start Date Expiration Date V isits Requested Visits Authorized [id number] Authorized 03/16/2025 09/15/2026 1 1 Reason for Visit * Reason Comments Consult Pt is a 84 year old female that presents to the clinic on this date as a new patient. Pt states she has no complaints of concerns at the current moment. Pt states she is not in any pain. Encounter Details Date Type Department Care Team (Latest Contact Info) Description 03/16/2025 10:00 AM EDT Office Visit [facility] [address] [place] [address] Naveed Diaz MD [address] [place] [address] Type 2 diabetes mellitus with stage 3 chronic kidney disease, with long-term current use of insulin, unspecified whether stage 3a or 3b CKD (CMS/HCC) (Primary Dx); Chronic kidney disease-mineral and bone disorder (CKD-MBD); Anemia due to stage 3b chronic kidney disease; Hypertensive chronic kidney disease with stage 1 through stage 4 chronic kidney disease, or unspecified chronic kidney disease; Other hyperlipidemia Social History Tobacco Use Types Packs/Day Years Used Date Smoking Tobacco: Former Cigarettes Smokeless Tobacco: Never AUDIT-C Answer Date Recorded Q1: How often do you have a drink containing alc ohol? Never 03/16/2025 Average Number of Drinks Not on file 025 Q3: How often do you have si x or more drinks on one occasion? Never 03/16/2025 Comments No Sex and Gender Information Value Date Recorded Sex Assigned at Not on file Legal Sex Female 8:37 PM EDT Gender Identity Not on file Sexual Orientation Not on file documented as of this encounter Last Filed Vital Signs Vital Sign Reading Time Taken Comments Blood Pressure 124/64 03/16/2025 9:36 AM EDT Pulse 67 03/16/2025 9:36 AM EDT Temperature - - Respiratory Rate 18 03/16/2025 9:36 AM EDT Oxygen Saturation 95% 03/16/2025 9:36 AM EDT Inhaled Oxygen Concentration - - Weight 79.8 kg (176 lb) 03/16/2025 9:36 AM EDT Height 157.5 cm (5' 2 ) 03/16/2025 9:36 AM EDT Body Mass Index 32.19 03/16/2025 9:36 AM EDT documented in this encounter Functional Status documented as of this encounter Miscellaneous Notes * Progress Notes - Naveed Diaz MD - 03/16/2025 10:00 AM EDT Nephrology Outpatient Clinic New Consult Note [facility] Specialty [facility] [place] Patient: Francisco J Mir Primary Care Provider: Ivonne Vasquez APRN Referring Provider: Ivonne Vasquez APRN Reason for consult: CKD Stage 3 HPI/Subjective Francisco J Mir is a 84 y.o. female with a PMH of COPD, CAD s/p CABG, DM2 on insulin, who presents for evaluation of CKD. 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 She is accompanied by her daughter today. She has had diabetes for 30+ years and has macular degeneration and is legally blind. She has decent blood pressure control on metoprolol 50 mg daily. She used to be on Victoza + insulin for her diabetes, but had to stop victoza because of insurance and is now taking Jardiance + insulin lantus 30 units BID. She has gained 20-30 lbs since stopping Victoza and this is a high concern to her. She was prescribed Ozempic ,but has not started taking it yet. She has no urinary symptoms. She does not want dialysis ever. She has mild swelling currently takinglasix 20 mg daily. No other acute complaints today. ROS Review of Systems Constitutional: Negative. HENT: Negative. Eyes: Negative. Respiratory: Negative. Cardiovascular: Negative. Gastrointestinal: Negative. Endocrine: Negative. Genitourinary: Negative. Musculoskeletal: Negative. Skin: Negative. Allergic/Immunologic: Negative. Neurological: Negative. Hematological: Negative. Psychiatric/Behavioral: Negative. History: Past Medical History[1] Problem List[2] Surgical History[3] Family History[4] Social History Socioeconomic History Marital status: Spouse name: Not on file Number of children: Not on file Years of education: Not on file Highest education level: Not on file Occupational History Not on file Tobacco Use Smoking status: Former Types: Cigarettes Smokeless tobacco: Never Vaping Use Vaping status: Never Used Substance and Sexual Activity Alcohol use: Not on file Drug use: Never Sexual activity: Not on file Other Topics Concern Not on file Social History Narrative Not on file Social Drivers of Health Financial Resource Strain: Not on file Food Insecurity: Not on file Transportation Needs: Not on file Physical Activity: Not on file Stress: Not on file Social Connections: Unknown (05/12/2023) Received from [facility] Family and Community Support Help with Day-to-Day Activities: Not on file Lonely or Isolated: Not on file Intimate Partner Violence: Unknown (05/12/2023) Received from [facility] Abuse Screen Unsafe at Home or Work/School: Not on file Feels Threatened by Someone?: Not on file Does Anyone Keep You from Contacting Others or Doint Things Outside the Home?: Not on file Physical Sign of Abuse Present: Not on file Housing Stability: Unknown (05/12/2023) Received from [facility] Housing Stability Current Living Arrangements: Not on file Potentially Unsafe Housing Conditions: Not on file Allergies[5] Medications: Current Medications: Current Outpatient Medications Medication Instructions Albuterol Sulfate 108 (90 Base) MCG/ACT aerosol powder Inhale. allopurinol (ZYLOPRIM) 100 mg, Daily aspirin 81 mg, Daily cholecalciferol (VITAMIN D-3) 10,000 Units, Daily Empagliflozin (JARDIANCE PO) Take by mouth. furosemide (Lasix) 20 MG tablet Take by mouth. insulin glargine (LANTUS) 30 Units, 2 times daily ipratropium-albuterol (Duo-Neb) 0.5-2.5 mg/3 mL nebulizer solution 3 mL, Every 6 hours PRN LEVOTHYROXINE SODIUM PO Take by mouth. metoprolol succinate XL (TOPROL-XL) 50 mg, Daily MONTELUKAST SODIUM PO Take by mouth. omeprazole (PRILOSEC) 20 mg, Daily omeprazole (PRILOSEC) 40 mg, Daily POTASSIUM CHLORIDE ER PO Take by mouth. pravastatin (PRAVACHOL) 40 mg, Nightly rOPINIRole (REQUIP) 1 mg, Nightly tiotropium-olodaterol (Stiolto Respimat) 2.5-2.5 MCG/ACT aerosol solution inhaler 2 Inhalations, Daily Objective Visit Vitals BP 124/64 (BP Location: Left arm, Patient Position: Sitting, BP Cuff Size: Adult long) Pulse 67 Resp 18 Ht 1.575 m (5' 2 ) Wt 79.8 kg (176 lb) LMP (LMP Unknown) SpO2 95% BMI 32.19 kg/m?? OB Status Postmenopausal Smoking Status Former BSA 1.87 m?? Heart Rate: [67] 67 Resp: [18] 18 BP: (124)/(64) 124/64 Physical Exam: Physical Exam Constitutional: General: She is not in acute distress. Appearance: Normal appearance. She is obese. She is not ill-appearing. HENT: Head: Normocephalic. Right Ear: External ear normal. Left Ear: External ear normal. Nose: Nose normal. Mouth/Throat: Mouth: Mucous membranes are moist. Pharynx: Oropharynx is clear. Eyes: Conjunctiva/sclera: Conjunctivae normal. Pupils: Pupils are equal, round, and reactive to light. Cardiovascular: Rate and Rhythm: Normal rate. Pulses: Normal pulses. Pulmonary: Effort: Pulmonary effort is normal. Abdominal: General: Abdomen is flat. Musculoskeletal: General: Normal range of motion. Cervical back: Normal range of motion. Right lower leg: No edema. Left lower leg: No edema. Skin: General: Skin is warm and dry. Capillary Refill: Capillary refill takes less than 2 seconds. Neurological: General: No focal deficit present. Mental Status: She is alert and oriented to person, place, and time. Mental status is at baseline. Psychiatric: Mood and Affect: Mood normal. Behavior: Behavior normal. Thought Content: Thought content normal. Judgment: Judgment normal. Laboratory: I have personally reviewed these lab results and discuss their significance below. LAB RESULTS Renal Panel: Lab Results Component Value Date NA 137 02/19/2021 K 4.4 02/19/2021 CL 100 02/19/2021 BUN 24 (H) 02/19/2021 CREATININE 1.34 (H) 02/19/2021 EGFR 38 (L) 02/19/2021 ALBUMIN 4.2 10/28/2020 CBC: Lab Results Component Value Date WBC 10.72 02/17/2019 RBC 4.36 02/17/2019 HGB 13.5 02/17/2019 HCT 42.1 02/17/2019 PLT 217 02/17/2019 MCV 96.6 02/17/2019 MCH 31 02/17/2019 MCHC 32.1 02/17/2019 RDW 12.8 02/17/2019 NRBC 0 02/17/2019 Iron studies: No results found for: FERRITIN , IRON , IRONSAT , TIBC Urine studies: No results found for: CAR , CAUR , CALCIUMUR , PHOSUR , [id number] , [id number] , CREATUR MBD: Lab Results Component Value Date CALCIUM 9.6 02/19/2021 VITAMIN D 25 No results found for: VITD25 VITAMIN D 1,25 No results found for: VITD32 Paraproteinemia Labs: No results found for: SPEP , KAPPALAMBDA Nutritional: No results found for: PREALBUMIN , VITD25 Endocrine profile: Lab Results Component Value Date TSH 1.65 02/19/2021 Labs 02/06/25 CBC: WBC 9.8, Hgb 13.8, Plt 219, RFP: Na 141, K 5.1, Cl 100, CO2 29, BUN 28, Cr 1.3, GFR 39, Ca 9.5, P 2.7, Alb 4.4 UA: 3+ glucose, trace blood 10-20 rbc, neg protein Ipth 115.9 Imaging: No recent kidney imaging for review. Impression & Plan: #CKD Stage 3b from DM type 2, on insulin Etiology: Diabetic kidney disease Baseline serum creatinine: 1.3 Most recent Scr: 1.3 eGFR 39 Electrolytes, acid/base, volume status wnl Urine: + glucose, + blood, Negative protein Anatomy: no recent kidney imaging Risk factor reduction to slow progression of kidney disease: -BP Control goal BP <130/80 - at goal -DM control goal A1c <7.0% - not at goal -Lifestyle management: ---Maintain healthy weight: Body mass index is 32.19 kg/m??. Is above goal she is considering starting a GLP1 agonist ---Diet recommendations: Heart healthy and Low sodium <2g/day ---Daily exercise 20-30 minutes as tolerated -Avoid NSAIDs -OSWALD blockade: None currently will defer due to lack of proteinuria and BP is well controlled -SGLT2 inhibitor: Jardiance 25 mg daily -considering GLP1 agonist #HTN in CKD -BP Goal <130/80 - at goal on metoprolol 50 mg daily #Anemia in CKD -Hhgb >10 g/dL is at goal, not on iron or DALILA #CKD Bone and Mineral Disease -PTH elevated secondary to renal insufficiency goal PTH <150 -phos and ca at goal -vit d goal >30 #Hyperlipidemia in CKD -would benefit from statin given heart disease and CKD 3 age >50 Recommendations and plan: -I have reviewed Ms. Mir's labs and referral document. She has CKD stage 3 from diabetic kidneydisease. She does not have significnat proteinuria. She is on an SGLT2 inhibitor (Jardiance) but not on acei/arb. I agree with starting a GLP1 for her diabetes as this class of medication has also shown benefit in slowing progression of kidney disease -No change to medications today -Recommend heart healthy diet low in sodium RTC in 1 year with labs before visit Naveed Diaz MD Division of Nephrology [facility] Counseling Documentation: The patient was counseled regarding COUNSELING TOPICS: diagnostic results, prognosis, risks and benefit of treatment options, risk factor reductions, instructions for management, patient and family education, medication changes, diagnostic impressions, Heart healthy diet, regular physical activity and weight control, Avoidance of NSAIDs and other nephrotoxins, and correction nature of condition. Education provided was verbal counseling.Additional time was spent in care coordination including medical record review. ENCOUNTER TIMING: I personally spent a total of 40 minutes on this encounter. This time includes face to face with patient, counseling and discussion, lab/result interpretation, coordination of follow-up care, document review. The total time of encounter was 40 minutes and greater than 50% of the visit was spent in c ounseling/coordination of care. . MDM: - was based on the following: History obtained from family Labs reviewed Urine studies: UA Past imaging reviewed Renal function panel Complete blood counts Urinalysis iPTH ORDERS PLACED THIS ENCOUNTER Orders Placed This Encounter Procedures CBC W/O Differential Standing Status: Future Expected Date: 03/16/2026 Expiration Date: 04/20/2026 Release to patient in [facility]: Immediate Urinalysis with reflex microscopic (Culture NOT Included) Standing Status: Future Expected Date: 03/16/2026 Expiration Date: 04/20/2026 Release to patient in MyChart: Immediate Vitamin D 25 Hydroxy Standing Status: Future Expected Date: 03/16/2026 Expiration Date: 04/20/2026 Release to patient in MyChart: Immediate PTH Intact Total Standing Status: Future Expected Date: 03/16/2026 Expiration Date: 04/20/2026 Release to patient in [facility]: Immediate Albumin-creatinine ratio, urine, random Standing Status: Future Expected Date: 03/16/2026 Expiration Date: 04/20/2026 Release to patient in MyChart: Immediate Protein, Random, Urine with Creatinine Standing Status: Future Expected Date: 03/16/2026 Expiration Date: 04/20/2026 Release to patient in MyChart: Immediate Renal Function Panel, Plasma Standing Status: Future Expected Date: 03/16/2026 Expiration Date: 04/20/2026 [facility] Follow Up [facility]phrology [facility] Standing Status: Future Expected Date: 03/16/2026 Expiration Date: 04/16/2026 Referral Priority: Routine Referral Type: Consultation Number of Visits Requested: 1 Problem List Items Addressed This Visit Type 2 diabetes mellitus with stage 3 chronic kidney disease, with long-term current use of insulin([facility]) - Primary Relevant Medications aspirin 81 MG EC tablet Empagliflozin (JARDIANCE PO) furosemide (Lasix) 20 MG tablet insulin glargine (Lantus) 100 UNIT/ML injection vial metoprolol succinate XL (Toprol-XL) 50 MG 24 hr tablet pravastatin (Pravachol) 40 MG tablet cholecalciferol (Vitamin D-3) 250 MCG (50224 UT) capsule Other Relevant Orders Follow Up Nephrology CBC W/O Differential Urinalysis with reflex microscopic (Culture NOT Included) Vitamin D 25 Hydroxy PTH Intact Total Albumin-creatinine ratio, urine, random Protein, Random, Urine with Creatinine Renal Function Panel, Plasma Chronic kidney disease-mineral and bone disorder (CKD-MBD) Relevant Medications Empagliflozin (JARDIANCE PO) furosemide (Lasix) 20 MG tablet metoprolol succinate XL (Toprol-XL) 50 MG 24 hr tablet pravastatin (Pravachol) 40 MG tablet cholecalciferol (Vitamin D-3) 250 MCG (32502 UT) capsule Anemia due to stage 3b chronic kidney disease Relevant Medications Empagliflozin (JARDIANCE PO) furosemide (Lasix) 20 MG tablet metoprolol succinate XL (Toprol-XL) 50 MG 24 hr tablet pravastatin (Pravachol) 40 MG tablet cholecalciferol (Vitamin D-3) 250 MCG (88506 UT) capsule Hypertensive chronic kidney disease with stage 1 through stage 4 chronic kidney disease, or unspecified chronic kidney disease Relevant Medications Empagliflozin (JARDIANCE PO) furosemide (Lasix) 20 MG tablet metoprolol succinate XL (Toprol-XL) 50 MG 24 hr tablet POTASSIUM CHLORIDE ER PO pravastatin (Pravachol) 40 MG tablet cholecalciferol (Vitamin D-3) 250 MCG (20279 UT) capsule Other hyperlipidemia Relevant Medications pravastatin (Pravachol) 40 MG tablet I confirm that I have addressed the patient's longitudinal multifaceted and complex health related active and chronic conditions that will require ongoing care with myself or someone on my team. [1] Past Medical History: Diagnosis Date COPD (chronic obstructive pulmonary disease) (CMS/HCC) Diabetes (CMS/HCC) Hypothyroidism Pharyngitis [2] There is no problem list on file for this patient. [3] Past Surgical History: Procedure Laterality Date CARDIAC CATHETERIZATION CARDIAC SURGERY COLONOSCOPY HYSTERECTOMY [4] History reviewed. No pertinent family history. [5] No Known Allergies documented in this encounter Plan of Treatment Scheduled Orders Name Type Priority Associated Diagnoses Orde r Schedule CBC W/O Differential Lab Routine Type 2 diabetes mellitus with stage 3 chronic kidney disease, with long-term current use of insulin, unspecified whether stage 3a or 3b CKD ([facility]) Expected: 03/16/2026 (Approximate), Expires: 04/20/2026 Urinalysis with reflex microscopic (Culture NOT Included) Lab Routine Type 2 diabetes mellitus with stage 3 chronic kidney disease, with long-term current use of insulin, unspecified whether stage 3a or 3b CKD ([facility]) Expected: 03/16/2026 (Approximate), Expires: 04/20/2026 Vitamin D 25 Hydroxy Lab Routine Type 2 diabetes mellitus with stage 3 chronic kidney disease, with long-term current use of insulin, unspecified whether stage 3a or 3b CKD ([facility]) Expected: 03/16/2026 (Approximate), Expires: 04/20/2026 PTH Intact Total Lab Routine Type 2 diabetes mellitus with stage 3 chronic kidney disease, with long-term current use of insulin, unspecified whether stage 3a or 3b CKD ([facility]) Expected: 03/16/2026 (Approximate), Expires: 04/20/2026 Albumin-creatinine ratio, urine, random Lab Routine Type 2 diabetes mellitus with stage 3 chronic kidney disease, with long-term current use of insulin, unspecified whether stage 3a or 3b CKD ([facility]) Expected: 03/16/2026 (Approximate), Expires: 04/20/2026 Protein, Random, Urine with Creatinine Lab Routine Type 2 diabetes mellitus with stage 3 chronic kidney disease, with long-term current use of insulin, unspecified whether stage 3a or 3b CKD ([facility]) Expected: 03/16/2026 (Approximate), Expires: 04/20/2026 Renal Function Panel, Plasma Lab Routine Type 2 diabetes mellitus with stage 3 chronic kidney disease, with long-term current use of insulin, unspecified whether stage 3a or 3b CKD ([facility]) Expected: 03/16/2026 (Approximate), Expires: 04/20/2026 Scheduled Referrals Name Type Priority Associated Diagnoses Orde r Schedule Follow Up Nephrology Outpatient Referral Routine Type 2 diabetes mellitus with stage 3 chronic kidney disease, with long-term current use of insulin, unspecified whether stage 3a or 3b CKD (CMS/HCC) Expected: 03/16/2026 (Approximate), Expires: 04/16/2026 documented as of this encounter Visit Diagnoses Diagnosis Type 2 diabetes mellitus with stage 3 chronic kidney disease, with long-term current use of insulin, unspecified whether stage 3a or 3b CKD (CMS/[facility])- Primary 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
--- NOTE | 2025-03-16 14:13 | XR_ITS ---
FINAL REPORT CLINICAL HISTORY: pain FINDINGS: Right knee THREE VIEW FINDINGS: Three views show no evidence of an acute, displaced fracture or dislocation of the visualized bony architecture. Moderate degenerative joint disease is present. Diffuse chondrocalcinosis is seen. IMPRESSION: Degenerative changes. No acute bony abnormality . Authenticated and ERN
--- NOTE | 2025-03-16 14:13 | XR_ITS ---
FINAL REPORT TECHNIQUE: 2 view chest CLINICAL HISTORY: dypnea COMPARISON: 12/11/2021 FINDINGS: No acute pulmonary opacities present. There is no evidence of effusion or pneumothorax. There is evidence of prior median sternotomy, presumably from CABG. Otherwise mediastinum is unremarkable. The heart is normal in size. IMPRESSION: Unremarkable chest, status post CABG. Authenticated and ERN
--- OUTSIDE RECORDS SUMMARY | 2025-03-16 14:13 | XMS_ITS | Encounter Summary ---
Author Organization [employer] ([place], [place], [place], [place]) Address [address] [place] [address] Care Team Providers Care Tile Layer Drainage Name Role Phone Unavailable Primary Care Provider Unavailabl e Encounter Details Date Type Department Care Team (Late st Contact Info) Description 09/22/2021 Transcribed Document [facility] Family Medicine [facility] [place] [address] ProviderAlissa MD [address] [place] [id number] Social History Tobacco Use Types Packs/Day [...] - Historical ProviderMD - 09/22/2021 4:31 PM STEMMING MACHINE OPERATOR ED Assessment Entered On: 09/22/2021 21:46 EST [...] Communication Barrier : None Primary Language : Albanian Any Spiritual/Cultural Needs or Requests : No [...] 2 days.pt states she was seen at [facility] earlier today and flu and covid was [...] - 09/22/2021 21:44 EST Electronically signed by [facility] Conversion House Furnishings Supervisor Maxinener at 11/19/2022 4:56 PM CDT documented in this encounter Plan of Treatment Not on file documented as of this encounter Visit Diagnoses Not on filedocumented in this encounter
--- OUTSIDE RECORDS SUMMARY | 2025-03-16 14:13 | XMS_ITS | Referral Summary ---
Author Organization [employer] ([place], [place], [place], [place]) Address [address] [place] [address] Care Team Providers Care Bottom Liquor Attendant Name Role Phone Unavailable Primary Care Provider [...]
--- OUTSIDE RECORDS SUMMARY | 2025-03-16 14:13 | XMS_ITS | Encounter Summary ---
Author Organization [employer] ([place], [place], [place], [place]) Address [address] [place] [address] Care Team Providers Care Electric Fan Assembler Name Role Phone Unavailable Primary Care Provider Unavailabl e Encounter Details Date Type Department Care Team (Late st Contact Info) Description 09/22/2021 Transcribed Document [facility] [place] Family Medicine [facility] [place] [address] ProviderAlissa MD [address] [place] [address] Social History Tobacco Use Types Packs/Day [...] - Historical ProviderMD - 09/22/2021 11:34 PM MEDICAL EQUIPMENT REPAIR TECHNICIAN ED Discharge Entered On: 09/22/2021 23:34 EST [...] 09/22/2021 23:34 EST Electronically signed by Interface, [facility] Conversion Grinding Machine Tender Cerner at 11/19/2022 4:48 PM CDT documented in this encounter Plan of Treatment Not on file documented as of this encounter Visit Diagnoses Not on filedocumented in this encounter
--- OUTSIDE RECORDS SUMMARY | 2025-03-16 14:13 | XMS_ITS | Encounter Summary ---
Author Organization [employer] ([place], [place], [place], [place]) Address [address] [place] [address] Care Team Providers Care Debit Agent Name Role Phone Unavailable Primary Care Provider Unavailabl e Encounter Details Date Type Department Care Team (Late st Contact Info) Description 09/22/2021 Transcribed Document [facility] [place] Family Medicine [address] [place] [address] ProviderAlissa MD [address] [place] [address] Social History Tobacco Use Types [...] - Historical ProviderMD - 09/22/2021 4:31 PM DERMATOLOGY PROCEDURAL PHYSICIAN [place] Violence Assessment Entered On: 09/22/2021 21:46 [...]
--- OUTSIDE RECORDS SUMMARY | 2025-03-16 14:13 | XMS_ITS | Encounter Summary ---
Author Organization [employer] ([place], [place], [place], [place]) Address [address] [place] [address] Care Team Providers Care Middleware Systems Architect Name Role Phone Unavailable Primary Care Provider Unavailabl e Encounter Details Date Type Department Care Team (Late st Contact Info) Description 09/22/2021 Transcribed Document [facility] Family Medicine [facility] [place] [address] ProviderAlissa MD [address] [place] [address] Social History Tobacco Use Types Packs/Day [...] - Historical ProviderMD - 09/22/2021 11:13 PM LINUX SYSTEMS ANALYST Patient: BRENT MIR Age: 81 years Sex: [...] EST Height Source Stated Height Entry Format Maddock Height/Length, SRI LANKAN (ft) 5 ft Height/Length SRI LANKAN 2 Inch CLINICALHEIGHT 157.48 cm [place] Body Weight 49.73 kg Weight Source, ED Critical estimated dosing weight Weight Entry Format Maddock Weight Luxembourgish lb 170 lb CLINICALWEIGHT 77.27 kg Body [...] Triage: ED C-SSRS: ED Clinical Reconciliation: ED pediatric licensed practical nurse: Normal Saline Flush: 10 mL, IV Push, [...] 11.9 % LOW Lymph # 1.15 x10(3)/uL Wirt % 2.1 % LOW Wirt # 0.20 K/uL Eos % 0.0 % Eos # 0.00 x10(3)/uL Baso % 0.3 % Baso # 0.03 x10(3)/uL Slide Review No IG# 0.04 x10(3)/uL IG% 0.40 % . Radiology results: Radiology Results (Last 48 hours) [id number] -- 09/22/2021 16:31 CR Chest 2 Vws [...] 23:14 EST, Discharge to: Home. Prescriptions: Prescription Speech Language Pathologist Prn Pharmacy: doxycycline hyclate 100 mg oral capsule [...] Regarding prescription, Patient indicated understanding of instructions. Electronically signed by Lorena Joseph Conversion Building Construction Estimator Cerner at 11/19/2022 4:53 PM CDT documented in this encounter Plan of Treatment Not on file documented as of this encounter Visit Diagnoses Not on filedocumented in this encounter
--- OUTSIDE RECORDS SUMMARY | 2025-03-16 14:13 | XMS_ITS | Encounter Summary ---
Author Organization [employer] ([place], [place], [place], [place]) Address [address] [place] [address] Care Team Providers Care Nuclear Medicine Technician Name Role Phone Unavailable Primary Care Provider Unavailabl e Encounter Details Date Type Department Care Team (Late st Contact Info) Description 09/22/2021 Transcribed Document [facility] [place] [facility] [place] [address] ProviderAlissa MD [address] [place] [address] Social History Tobacco Use Types [...] - Historical ProviderMD - 09/22/2021 4:31 PM WATER RESOURCE CONSULTANT [place] Suicide Severity Rating Scale (C-SSRS) Entered On: 09/22/2021 21:46 EST Performed On: 09/22/2021 21:44 EST by Leana Christine RN [place] Suicide Severity Rating Scale (C-SSRS) CSSRS Past Month Wish to be : No CSSRS Past Month Suicidal Thoughts : No CSSRS Lifetime Suicide Behavior : No Suicide Severity Rating Score : 0 Suicide Severity Rating : No Additional Care Required at this time Leana Christine RN - 09/22/2021 21:44 EST Electronically signed by Jake [facility] Conversion Health Equipment Servicer Cerner at 11/19/2022 4:45 PM CDT documented in this encounter Plan of Treatment Not on file documented as of this encounter Visit Diagnoses Not on filedocumented in this encounter
--- OUTSIDE RECORDS SUMMARY | 2025-03-16 14:13 | XMS_ITS | Encounter Summary ---
Author Organization Healthcare Address [address] [place] [address] Care Team Providers Care Research Specialist Name Role Phone Ivonne Vasquez APRN Primary Care Provider [phone] Encounter Details Date Type Department Care Team (Latest Contact Info) Description 03/16/2025 Travel Social History Tobacco Use Types Packs/Day Years [...] on file documented as of this encounter Functional Status documented as of this encounter Plan of Treatment Not on file documented as of this encounter Visit Diagnoses Not on filedocumented in this encounter Additional Health Concerns Assessment Noted Time A Body Mass Index follow-up plan has been documented for the patient 03/16/2025 10:40 AM EDT documented as of this encounter Care Teams Research Specialist Relationship Specialty Start Date End Date Ivonne Vasquez APRN [address] [place], [place] [id number] PCP - General 06/23/24 documented as of this encounter
--- OUTSIDE RECORDS SUMMARY | 2025-03-16 14:13 | XMS_ITS | Clinical Summary ---
Author Organization [facility] Address [address] [place] [address] Care Team Providers Care Veterinary Livestock Inspector Name Role Phone Ivonne Vasquez APRN Primary Care Provider [phone] Allergies No known active allergies Medications Albuterol Sulfate 108 (90 Base) MCG/ACT aerosol powder Inhale. Activ e allopurinol (Zyloprim) 100 MG tablet Take 1 tablet by mouth daily. Active aspirin 81 MG EC tablet Take 1 tablet by mouth daily. Active Empagliflozin (JARDIANCE PO) Take by mouth. Active furosemide (Lasix) 20 MG tablet Take by mouth. Activ e insulin glargine (Lantus) 100 UNIT/ML injection vial Inject 30 Units under the skin 2 times a day. Active ipratropium-alb uterol (Duo-Neb) 0.5-2.5 mg/3 mL nebulizer solution Take 3 mL by nebulization every 6 hours as needed for wheezing. Active LEVOTHYROXINE SODIUM PO Take by mouth. Activ e metoprolol succinate XL (Toprol-XL) 50 MG 24 hr tablet Take 1 tablet by mouth daily. Do not crush or chew. Active MONTELUKAST SODIUM PO Take by mouth. Activ e omeprazole (PriLOSEC) [address] capsule Take 1 capsule by mouth daily. Do not crush or chew. Active POTASSIUM CHLORIDE ER PO Take by mouth. Active pravastatin (Pravachol) 40 MG tablet Take 1 tablet by mouth nightly. Active rOPINIRole (Requip) 1 MG tablet Take 1 tablet by mouth nightly. Active tiotropium-olod aterol (Stiolto Respimat) 2.5-2.5 MCG/ACT aerosol solution inhaler Inhale 2 Inhalations daily. Active cholecalciferol (Vitamin D-3) 250 MCG ([address] [place]) capsule Take 1 capsule by mouth daily. Active omeprazole (PriLOSEC) [address] capsule Take 1 capsule by mouth daily. Do not crush or chew. 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, with long-term current use of insulin 03/16/2025 Chronic kidney disease-mineral and bone disorder (CKD-MBD) 03/16/2025 Anemia due to stage 3b chronic kidney disease Hypertensive chronic kidney disease with stage 1 through stage 4 chronic kidney disease, or unspecified chronic kidney disease 03/16/2025 Other hyperlipidemia 03/16/2025 Encounters Date Type Department Care Team Description 03/16/2025 10:00 AM EDT Office Visit [facility] [address] [place] [address] Naveed Diaz MD Type 2 diabetes mellitus with stage 3 chronic kidney disease, with long-term current use of insulin, unspecified whether stage 3a or 3b CKD (CMS/[facility]) (Primary Dx); Chronic kidney disease-mineral and bone disorder (CKD-MBD); Anemia due to stage 3b chronic kidney disease; Hypertensive chronic kidney disease with stage 1 through stage 4 chronic kidney disease, or unspecified chronic kidney disease; Other hyperlipidemia 03/16/2025 Travel 02/01/2025 Orders Only [facility] [address] [place] [address] Giselle Graf CKD (chronic kidney disease) stage [...] on file Sexual Orientation Not on file Last Filed Vital Signs Vital Sign Reading [...] Mass Index 32.19 03/16/2025 9:36 AM EDT Plan of Treatment Health Maintenance Due Date Last Done Comments [facility]-Bone Density Scan 1940 [facility]-Depression Screening 1940 [facility]-Medicare Annual Wellness (AWV) 1940 [facility]-/Child/Adol SDOH Screenings 1940 [facility]-Obesity Intervention 1946 03/16/2025 Diabetes: Dental Exam 1950 [facility]- SDOH Screenings 1958 [facility]-Adult SDOH Screenings 1958 [facility]-DTaP,Tdap,and Td Vaccines (1 - Tdap) 1959 [facility]-RSV Vaccine: 60+ Years or (1 - 1-dose 75+ series) 2015 [facility]-Zoster Vaccines (3 of 3) 07/07/2018 05/12/2018, 02/14/2016 [facility]-Diabetes: Hemoglobin A1C 08/17/2019 02/17/2019 [id number] Vaccine (5 - Pfizer risk 2023- season) 2024 05/10/2024, 06/13/2021, 10/19/2020, Additional history [...] patient's age to complete this topic Insurance [employer] MEDICARE Care Teams Veterinary Livestock Inspector Relationship Specialty Start Date End Date Ivonne Vasquez APRN [address] [place] [id number] PCP - General 06/23/24
--- OUTSIDE RECORDS SUMMARY | 2025-03-16 14:13 | XMS_ITS | Clinical Summary ---
Author Organization [employer] ([place], [place], [place], [place]) Address [address] [place] [address] Care Team Providers Care Chicken And Fish Butcher Name Role Phone Unavailable Primary Care Provider [...]
--- OUTSIDE RECORDS SUMMARY | 2025-03-16 14:13 | XMS_ITS | Encounter Summary ---
Author Organization [employer] ([place], [place], [place], [place]) Address [address] [place] [address] Care Team Providers Care Media Strategist Name Role Phone Unavailable Primary Care Provider Unavailabl e Encounter Details Date Type Department Care Team (Late st Contact Info) Description 09/23/2021 Transcribed Document [facility] [place] [facility] [place] [address] ProviderAlissa MD [address] [place] [address] Social History Tobacco Use Types Packs/Day [...] - Historical ProviderMD - 09/23/2021 9:58 AM TOWNSHIP CLERK CR Chest 2 Vws Ordered: 09/22/2021 Auth (Verified) Reason for Exam: soa 09/22/2021 20:36 09/23/2021 09:58 (JERED MARTIN, APR) Reviewed by Provider, No further action required, Called and Left Message x1 Electronically signed by Jake [facility] Conversion Engineering Program Manager Maxinener at 11/19/2022 4:45 PM CDT documented in this encounter Plan of Treatment Not on file documented as of this encounter Visit Diagnoses Not on filedocumented in this encounter
--- OUTSIDE RECORDS SUMMARY | 2025-03-16 14:13 | XMS_ITS | Encounter Summary ---
Author Organization [employer] ([place], [place], [place], [place]) Address [address] [place] [address] Care Team Providers Care Harness Installer Name Role Phone Unavailable Primary Care Provider Unavailabl e Encounter Details Date Type Department Care Team (Late st Contact Info) Description 09/22/2021 Transcribed Document [facility] [place] [address] ProviderAlissa MD [address] [place] [address] Social History Tobacco Use Types Packs/Day [...] - Historical ProviderMD - 09/22/2021 11:14 PM SEASONAL SALES ASSOCIATE Electronically signed by Kt Joseph Conversion Supervisor Frame Sample And Pattern Cerner at 11/19/2022 4:54 PM CDT documented in this encounter Plan of Treatment Not on file documented as of this encounter Visit Diagnoses Not on filedocumented in this encounter
--- OUTSIDE RECORDS SUMMARY | 2025-03-16 14:13 | XMS_ITS | Encounter Summary ---
Author Organization [employer] ([place], [place], [place], [place]) Address [address] [place] [address] Care Team Providers Care Residential Framing Carpenter Name Role Phone Unavailable Primary Care Provider Unavailabl e Encounter Details Date Type Department Care Team (Late st Contact Info) Description 09/22/2021 Transcribed Document [facility] [place] [facility] [place] [address] ProviderAlissa MD [address] [place] [address] Social History Tobacco Use Types [...] - Alissa ProviderMD - 09/22/2021 11:24 PM JUDICIAL CLERK [facility] [address] BRENT MIR :1940 Visit Time:09/22/2021 [...] with new or worsening symptoms Where: [address] [facility] [address] [place] [address] Business (1) Allergies No Known Allergies Immunizations This Visit No Immunizations Found Medications What How Much When Instructions Next Dose doxycycline (doxycycline hyclate 100 mg oral capsule) 1 Capsule(s) Oral Two Times A Day Duration: 10 Day(s) Pickup at [facility] 9097 albuterol (Ventolin HFA 90 mcg/ inh inhalation [...] 60 Milligram(s) Oral At Bedtime Pharmacy Information [facility]: [address], [place] [id number] [phone] The home medications listed are only as [...] range between ( 0.0 and 7.0 ) [place] #: 0.20 K/uL -- Normal range between ( 0.16 and 1.00 ) Eos #: 0.00 x10(3)/uL -- Normal range between ( 0.00 and 0.80 ) [place] %: 2.1 % -- Normal range between [...] instructions at home: General instructions ??? Take [id number] and prescription medicines only as told by [...] provider. Document Revised: 07/18/2020 Document Reviewed: 06/26/2020 [employer] Patient Education ?? 2020 [employer]. Chronic Obstructive Pulmonary Disease Exacerbation Chronic obstructive [...] these instructions at home: Medicines ??? Take nhcu-mdk-xyyyhiu and prescription medicines only as told by [...] and water are not available, use hand distance education director. ??? During flu season, avoid enclosed spaces [...] provider. Document Revised: 07/01/2018 Document Reviewed: 08/23/2017 [employer] Patient Education ?? 2020 [employer] Emergency Awareness and Preventative Care STROKE [...] Assistance with quitting is available by contacting 4-261-SHCXNOW. This is a free resource providing counseling, support, and referral. Or you may contact your personal physician. [employer] Suicide Prevention Lifeline: The National Suicide Prevention [...] was given the opportunity to ask questions. Patient/Calculating Machine Mechanic Name: Patient/Calculating Machine Mechanic Signature: Relationship to Patient: Clinician/Hospital Calculating Machine Mechanic Signature: Please Provide a Telephone Number Where You Can Be Reached: Is it Permissible To Leave a Message? Date: documented in this encounter Plan of Treatment Not on file documented as of this encounter Visit Diagnoses Not on filedocumented in this encounter
--- OUTSIDE RECORDS SUMMARY | 2025-03-16 14:13 | XMS_ITS | Encounter Summary ---
Author Organization [employer] ([place], [place], [place], [place]) Address [address] [place] [address] Care Team Providers Care Vice President Of Marketing Name Role Phone Unavailable Primary Care Provider Unavailabl e Encounter Details Date Type Department Care Team (Late st Contact Info) Description 09/22/2021 Transcribed Document [facility] [place] [facility] [place] [address] ProviderAlissa MD [address] [place] [address] Social History Tobacco Use Types [...] - Historical ProviderMD - 09/22/2021 4:31 PM CLAMP CARRIER OPERATOR ED Triage Entered On: 09/22/2021 17:08 EST [...] EST DCP GENERIC CODE Tracking Group : [facility] ED Tracking Acuity : 3 - Urgent [...] INF Disease Recent Travel Calc : 0 Ki Pandey RN - 09/22/2021 17:05 EST Vital [...] 17:08:23 EST) Problems(Active) Allergic rhinitis (SNOMED CT :906118993 ) Name of Problem: Allergic rhinitis ; Recorder: VIRI MIDDLETON RN; Confirmation: Confirmed ; Classification: Patient Stated ; Code: [id number] ; Contributor System: [employer]art[employer] ; Last Updated: 06/15/2014 10:15 EST ; Life Cycle Date: 06/15/2014 ; Life Cycle Status: Active ; Vocabulary: SNOMED CT Anemia (SNOMED CT :253560510 ) Name of Problem: Anemia ; Recorder: VIRI MIDDLETON RN; Confirmation: Confirmed ; Classification: Patient Stated ; Code: 830341250 ; Contributor System: [employer]Chart ; Last Updated: 06/15/2014 10:20 EST ; Life Cycle Date: 06/15/2014 ; Life Cycle Status: Active ; Vocabulary: SNOMED CT Angina (SNOMED CT :758525081 ) Name of Problem: Angina ; Recorder: VIRI MIDDLETON RN; Confirmation: Confirmed ; Classification: Patient Stated ; Code: 000477361 ; Contributor System: PowerChart ; Last Updated: 06/15/2014 10:16 EST ; Life Cycle Date: 06/15/2014 ; Life Cycle Status: Active ; Vocabulary: SNOMED CT Arthritis (SNOMED CT :6137877 ) Name of Problem: Arthritis ; Recorder: VIRI MIDDLETON RN; Confirmation: Confirmed ; Classification: Patient Stated ; Code: 7468307 ; Contributor System: PowerChart ; Last Updated: 06/15/2014 10:19 EST ; Life Cycle Date: 06/15/2014 ; Life Cycle Status: Active ; Vocabulary: SNOMED CT Bronchitis (SNOMED CT :50130058 ) Name of Problem: Bronchitis ; Recorder: VIRI MIDDLETON RN; Confirmation: Confirmed ; Classification: Patient Stated ; Code: 30119951 ; Contributor System: [employer]artisChart ; Last Updated: 06/15/2014 10:17 EST ; Life Cycle Date: 06/15/2014 ; Life Cycle Status: Active ; Vocabulary: SNOMED CT Cataract (SNOMED CT :[id number] ) Name of Problem: Cataract ; Recorder: VIRI MIDDLETON RN; Confirmation: Confirmed ; Classification: Patient Stated ; Code: [id number] ; Contributor System: PowerChart ; Last Updated: 06/15/2014 10:15 EST ; Life Cycle Date: 06/15/2014 ; Life Cycle Status: Active ; Vocabulary: SNOMED CT COPD (SNOMED CT :49201907 ) Name of Problem: COPD ; Recorder: VIRI MIDDLETON RN; Confirmation: Confirmed ; Classification: Patient Stated ; Code: 06060182 ; Contributor System: PowerChart ; Last Updated: 06/15/2014 10:17 EST ; Life Cycle Date: 06/15/2014 ; Life Cycle Status: Active ; Vocabulary: SNOMED CT Coronary artery disease (SNOMED CT :7763158049 ) Name of Problem: Coronary artery disease ; Recorder: VIRI MIDDLETON RN; Confirmation: Confirmed ; Classification: Patient Stated ; Code: 1423912521 ; Contributor System: PowerChart ; Last Updated: 06/15/2014 10:16 EST ; Life Cycle Date: 06/15/2014 ; Life Cycle Status: Active ; Vocabulary: SNOMED CT Diabetes mellitus type I (SNOMED CT :84666512 ) Name of Problem: Diabetes mellitus type I ; Recorder: VIRI MIDDLETON RN; Confirmation: Confirmed ; Classification: Patient Stated ; Code: 38763932 ; Contributor System: PowerChart ; Last Updated: 06/15/2014 10:20 EST ; Life Cycle Date: 06/15/2014 ; Life Cycle Status: Active ; Vocabulary: SNOMED CT GERD - Gastro-esophageal reflux disease (SNOMED CT :7484988125 ) Name of Problem: GERD - Gastro-esophageal reflux disease ; Recorder: VIRI MIDDLETON RN; Confirmation: Confirmed ; Classification: Patient Stated ; Code: 3705603624 ; Contributor System: PowerChart ; Last Updated: 06/15/2014 10:18 EST ; Life Cycle Date: 06/15/2014 ; Life Cycle Status: Active ; Vocabulary: SNOMED CT Heart valve (SNOMED CT :053648638 ) Name of Problem: Heart valve ; Recorder: VIRI MIDDLETON RN; Confirmation: Confirmed ; Classification: Patient Stated ; Code: 131482005 ; Contributor System: PowerChart ; Last Updated: 06/15/2014 10:16 EST ; Life Cycle Date: 06/15/2014 ; Life Cycle Status: Active ; Vocabulary: SNOMED CT High blood pressure (SNOMED CT :60224821 ) Name of Problem: High blood pressure ; Recorder: VIRI MIDDLETON RN; Confirmation: Confirmed ; Classification: Patient Stated ; Code: 57741279 ; Contributor System: CellartisChart ; Last Updated: 06/15/2014 10:16 EST ; Life Cycle Date: 06/15/2014 ; Life Cycle Status: Active ; Vocabulary: SNOMED CT Hyperlipidemia (SNOMED CT :48349175 ) Name of Problem: Hyperlipidemia ; Recorder: VIRI MIDDLETON RN; Confirmation: Confirmed ; Classification: Patient Stated ; Code: 19352449 ; Contributor System: CellartisChart ; Last Updated: 06/15/2014 10:16 EST ; Life Cycle Date: 06/15/2014 ; Life Cycle Status: Active ; Vocabulary: SNOMED CT Impaired vision (SNOMED CT :32303967 ) Name of Problem: Impaired vision ; Recorder: VIRI MIDDLETON RN; Confirmation: Confirmed ; Classification: Patient Stated ; Code: 93146866 ; Contributor System: CellartisChart ; Last Updated: 06/15/2014 10:15 EST ; Life Cycle Date: 06/15/2014 ; Life Cycle Status: Active ; Vocabulary: SNOMED CT Myocardial infarction (SNOMED CT :18732504 ) Name of Problem: Myocardial infarction ; Recorder: VIRI MIDDLETON RN; Confirmation: Confirmed ; Classification: Patient Stated ; Code: 75027910 ; Contributor System: PowerChart ; Last Updated: 06/15/2014 10:17 EST ; Life Cycle Date: 06/15/2014 ; Life Cycle Status: Active ; Vocabulary: SNOMED CT Peripheral neuropathy (SNOMED CT :4749062530 ) Name of Problem: Peripheral neuropathy ; Recorder: VIRI MIDDLETON RN; Confirmation: Confirmed ; Classification: Patient Stated ; Code: 7636606440 ; Contributor System: [employer]artisChart ; Last Updated: 06/15/2014 10:20 EST ; Life Cycle Date: 06/15/2014 ; Life Cycle Status: Active ; Vocabulary: SNOMED CT Pneumonia (SNOMED CT :935183708 ) Name of Problem: Pneumonia ; Recorder: VIRI MIDDLETON RN; Confirmation: Confirmed ; Classification: Patient Stated ; Code: 798409131 ; Contributor System: Transfer Course Computer System ([place]) ; Last Updated: 06/15/2014 10:17 EST ; Life Cycle Date: 06/15/2014 ; Life Cycle Status: Active ; Vocabulary: SNOMED CT Sleep apnea (SNOMED CT :045492825 ) Name of Problem: Sleep apnea ; Recorder: VIRI MIDDLETON RN; Confirmation: Confirmed ; Classification: Patient Stated ; Code: 963440243 ; Contributor System: Transfer Course Computer System ([place]) ; Last Updated: 06/15/2014 10:17 EST ; Life Cycle Date: 06/15/2014 ; Life Cycle Status: Active ; Vocabulary: SNOMED CT Diagnoses(Active) Shortness of breath Date: 09/22/2021 ; Diagnosis Type: Reason For Visit ; Confirmation: Complaint of ; Clinical Dx: Shortness of breath ; Classification: Medical ; Clinical Service: Non-Specified ; Code: PNED ; Probability: 0 ; Diagnosis Code: [id number] ED Height and Weight Height Source : Stated Height Entry Format : [place] Height, Feet : 5 ft(Converted to: 152 cm, 60 Inch) Height, Inches : 2 Inch(Converted to: 0 ft 2 Inch, 5.08 cm) Clinical Height : 157.48 cm Weight Source, ED : Critical estimated dosing weight Weight Entry Format : [place] Weight, Pounds : 170 lb Clinical Dosing Weight : 77.27 kg Body Surface Area (BSA) : 1.79 m2 Body Mass Index : 31.2 kg/m2 (HI) [place] Body Weight (IBW) : 49.73 kg Ki Pandey RN - 09/22/2021 17:05 EST documented in this encounter Plan of Treatment Not on file documented as of this encounter Visit Diagnoses Not on filedocumented in this encounter
--- OUTSIDE RECORDS SUMMARY | 2025-03-16 14:13 | XMS_ITS | Encounter Summary ---
Author Organization Healthcare Address [address] [place] [address] Care Team Providers Care Wound Treatment Rn Name Role Phone Ivonne Vasquez APRN Primary Care Provider [phone] Encounter Details Date Type Department Care Team (Late st Contact Info) Description 02/01/2025 Orders Only [facility] [address] [place] [id number] Giselle Graf CKD (chronic kidney [...] as of this encounter Plan of Treatment Scheduled Orders Name Type Priority Associated Diagnoses Orde r Schedule Renal Function Panel, Plasma Lab Routine CKD (chronic kidney disease) stage 3, GFR 30-59 ml/min (CMS/HCC) Expected: 02/01/2025 (Approximate), Expires: 08/04/2026 CBC and Differential Lab Routine CKD (chronic kidney disease) stage 3, GFR 30-59 ml/min (CMS/HCC) Expected: 02/01/2025 (Approximate), Expires: 08/04/2026 Creatinine, Random, Urine Lab Routine CKD (chronic kidney disease) stage 3, GFR 30-59 ml/min (CMS/HCC) Expected: 02/01/2025 (Approximate), Expires: 08/04/2026 Protein, Random, Urine with Creatinine Lab Routine CKD (chronic kidney disease) stage 3, GFR 30-59 ml/min ([facility]) Expected: 02/01/2025 (Approximate), Expires: 08/04/2026 Urinalysis with reflex microscopic (Culture NOT Included) Lab Routine CKD (chronic kidney disease) stage 3, GFR 30-59 ml/min ([facility]) Expected: 02/01/2025 (Approximate), Expires: 08/04/2026 PTH Intact Total Lab Routine CKD (chronic kidney disease) stage 3, GFR 30-59 ml/min ([facility]) Vitamin D insufficiency Expected: 02/01/2025 (Approximate), Expires: 08/04/2026 Vitamin D 25 Hydroxy Lab Routine CKD (chronic kidney disease) stage 3, GFR 30-59 ml/min ([facility]) Vitamin D insufficiency Expected: 02/01/2025 (Approximate), Expires: 08/04/2026 documented as of this encounter Visit Diagnoses Diagnosis CKD (chronic kidney disease) stage 3, GFR 30-59 ml/min ([facility])- Primary Chronic kidney disease, Stage III (moderate) Vitamin D insufficiency documented in this encounter Care Teams Wound Treatment Rn Relationship Specialty Start Date End Date Ivonne Vasquez APRN [address] [place] [address] PCP - General 06/23/24 documented as of this encounter
--- OUTSIDE RECORDS SUMMARY | 2025-03-16 14:14 | XMS_ITS | Clinical Summary ---
Author Organization [facility] Address [address] [place] [address] Care Team Providers Care Stage Set Up Worker Name Role Phone Barrington Ahumada APRN Primary Care Provider [phone] Allergies No known active allergies Medications aspirin 81 MG EC tablet Take 81 mg by mouth Daily. Active Cholecalciferol (VITAMIN D3) 5000 units capsule capsuleIndications :Vitamin D deficiency Take 1 capsule by mouth Daily. 90 capsule 1 07/05/20 17 Active cyclobenzaprine (FLEXERIL) 5 MG tabletIndications: Cervical radiculopathy Take 1 tablet by mouth 3 (Three) Times a Day As Needed for Muscle Spasms. 60 tablet 11/16/19 18 Active glucose blood (ACCU-CHEK VINCE PLUS) test strip TEST BLOOD SUGAR THREE TO FOUR TIMES DAILY 100 each 11 06/01/20 19 Active Lancets (ONETOUCH DELICA PLUS [id number]) [facility] TO TEST BLOOD SUGAR 3 TO 4 TIMES DAILY 400 each 2 10/10/19 20 Active glucose blood test strip Use to test blood sugar 3 times daily (E11.65) 300 each 3 10/25/19 20 Active Blood Glucose Monitoring Suppl device Use device to test blood sugar daily (E11.65) 1 each 10/25/19 20 Active Blood Glucose Monitoring Suppl (ACCU-CHEK VINCE PLUS) w/Device kit 10/26/19 20 Active ibandronate (BONIVA) 150 MG tabletIndications: Age-related osteoporosis without current pathological fracture TAKE 1 TABLET MONTHLY DIRECTED. SEE PACKAGE FOR ADDITIONAL INSTRUCTIONS 3 tablet 4 09/24/19 21 Active Insulin Glargine (Lantus SoloStar) 100 UNIT/ML injection penIndications:Con trolled type 2 diabetes mellitus with diabetic polyneuropathy, with long-term current use of insulin Inject 40 Units under the skin into the appropriate area as directed Every Night. 45 mL 3 11/29/19 21 Active loratadine (CLARITIN) 10 MG tablet TAKE 1 TABLET EVERY DAY NEEDED FOR ALLERGIES 90 tablet 1 11/29/19 21 Active gabapentin (NEURONTIN) 100 MG capsuleIndications :Diabetes mellitus type 2, insulin dependent Take 1 capsule by mouth Daily. 90 capsule 1 12/03/19 21 Active Insulin Pen Needle (Pen Fairburn) 31G X 5 MM misc 1 each Daily. 100 each 3 02/22/20 21 Active Liraglutide (Victoza) 18 MG/3ML solution pen-injector injectionIndicatio ns:Uncontrolled type 2 diabetes mellitus with hyperglycemia INJECT 0.6MG SUBCUTANEOUSLY EVERY DAY 9 mL 1 03/26/20 21 Active lisinopril (PRINIVIL,ZESTRIL) 2.5 MG tabletIndications: Microalbuminuria due to type 2 diabetes mellitus TAKE 1 TABLET EVERY DAY 90 tablet 1 05/12/20 21 Active potassium chloride (K-DUR,KLOR-CON) 20 MEQ CR tablet TAKE 1 TABLET EVERY DAY 90 tablet 1 07/07/20 21 Active albuterol sulfate HFA 108 (90 Base) MCG/ACT inhalerIndications :Pulmonary emphysema, unspecified emphysema type INHALE 2 PUFFS EVERY 4 HOURS NEEDED FOR WHEEZING 8 g 08/28/19 22 Active pravastatin (PRAVACHOL) 40 MG tabletIndications: Mixed hyperlipidemia TAKE 1 TABLET EVERY DAY 90 tablet 1 09/17/19 22 Active furosemide (LASIX) 20 MG tabletIndications: Essential hypertension TAKE 1 TABLET EVERY DAY 90 tablet 1 10/08/19 22 Active metoprolol succinate XL (TOPROL-XL) 25 MG 24 hr tabletIndications: Essential hypertension TAKE 1 TABLET EVERY DAY 90 tablet 1 10/10/19 22 Active famotidine (PEPCID) 20 MG tabletIndications: Gastroesophageal reflux disease TAKE 1 TABLET 2 TIMES A DAY NEEDED FOR INDIGESTION OR HEARTBURN. 180 tablet 1 10/14/19 22 Active montelukast (SINGULAIR) 10 MG tablet TAKE 1 TABLET EVERY NIGHT 90 tablet 1 10/14/19 22 Active levothyroxine (SYNTHROID, LEVOTHROID) 100 MCG tabletIndications: Controlled type 2 diabetes mellitus with diabetic polyneuropathy, with long-term current use of insulin,Acquired hypothyroidism TAKE 1 TABLET EVERY DAY ON AN EMPTY STOMACH (LAST REFILL WITHOUT APPOINTMENT SCHEDULED) 90 tablet 11/11/19 22 Active Jardiance 10 MG tablet tabletIndications: Uncontrolled type 2 diabetes mellitus with hyperglycemia TAKE 1 TABLET EVERY DAY (NEED MD APPOINTMENT FOR REFILLS) 90 tablet 12/02/19 22 Active Active Problems Problem Noted Date Diagnosed Date Gastroesophageal reflux disease 08/21/2019 Microalbuminuria due to type 2 diabetes mellitus 08/15/2018 Diabetic peripheral neuropat hy associated with type 2 diabetes mellitus 08/15/2018 Chronic gout of multiple sites 02/22/2018 Mixed hyperlipidemia 11/01/2017 Controlled type 2 diabetes m ellitus with diabetic polyneuropathy, with long-term current use of insulin 12/24/2016 History of heart attack 12/24/2016 Vitamin D deficiency 12/24/2016 Acquired hypothyroidism 12/24/2016 Osteoporosis 12/24/2016 Essential hypertension 12/24/2016 Pulmonary emphysema 12/24/2016 Immunizations Immunization Administration Dates Next Due COVID-19 (NextDocs) Purple Cap Monovalent 10/20/19,09/30/2020 FLUAD TRI 65YR+ 03/20/2017 Fluzone High-Dose 65+YRS 03/30/2020,04/28/2019,0 03/21/2016 Influenza, Unspecified 03/20/2017 Pneumococcal Conjugate 13-Valent (PCV13) 016 Pneumococcal Polysaccharide (PPSV23) 03/23/2017 Shingrix 05/12/2018 Zostavax 02/14/2016 Family History Medical History Relation Name Comments Arthritis Father Diabetes Maternal Aunt Diabetes Maternal Uncle Arthritis Mother Diabetes Mother Heart attack Mother Kidney disease Mother Obesity Mother Stroke Mother Arthritis Other Family Hx Diabetes Other Family Hx Heart attack Other Family Hx Hyperlipidemia Other Family Hx Hypertension Other Family Hx Kidney disease Other Family Hx Liver disease Other Family Hx Migraines Other Family Hx Obesity Other Family Hx Thyroid disease Other Family Hx Aneurysm Sister Diabetes Sister Heart attack Sister Liver disease Sister Obesity Sister Relation Name Status Comments Father Maternal Aunt Maternal Uncle Mother Other Family Hx Sister Social History Tobacco Use Types Packs/Day Years Used Date Smoking Tobacco: Former Cigarettes 3 35 Smokeless Tobacco: Never Alcohol Use Standard Drinks/Week Comments No 0 (1 standard drink = 0.6 oz pur e alcohol) PHQ-2 Answer Date Recorded Retired Total Score 0 12/18/2019 Abuse Screen Answer Date Recorded Unsafe at Home or Work/School Not on file Feels Threatened by Someone? Not on file 06/2023 Does Anyone Keep You from Co ntacting Others or Doint Things Outside the Home? Not on file 05/12/2023 Physical Sign of Abuse Present Not on file 1 Housing Stability Answer Date Recorded Current Living Arrangements Not on file 05/02 Potentially Unsafe Housing Conditions Not on megan e 05/12/2023 Family and Community Support Answer Dharmesh e Recorded Help with Day-to-Day Activities Not on file 05/12/2023 Lonely or Isolated Not on file 05/12/2023 Employment Answer Date Recorded Do you want help finding or keeping work or a david b? Not on file 05/12/2023 Disabilities Answer Date Recorded Concentrating, Remembering, or Making Decisions Difficulty Not on file 05/12/2023 Doing Errands Independently Difficulty Not on fi le 05/12/2023 Education Answer Date Recorded Help with school or training? Not on file Preferred Language Not on file 05/12/2023 Comments No Sex and Gender Information Value Date Recorded Sex Assigned at Not on file Legal Sex Female 4:19 PM EDT Gender Identity Not on file Sexual Orientation Not on file Last Filed Vital Signs Vital Sign Reading Time Taken Comments Blood Pressure 110/60 02/19/2021 1:11 PM EDT Pulse 74 02/19/2021 1:11 PM EDT Temperature 37 C (98.6 F) 12/23/2020 2:03 PM EDT Respiratory Rate 18 12/23/2020 2:03 PM EDT Oxygen Saturation 95% 02/19/2021 1:11 PM EDT Inhaled Oxygen Concentration - - Weight 78 kg (172 lb) 02/19/2021 1:11 PM EDT Height 158 cm (5' 2.21 ) 02/19/2021 1:11 PM EDT Body Mass Index 31.25 02/19/2021 1:11 PM EDT Plan of Treatment Health Maintenance Due Date Last Done Comments RSV Vaccine - Adults (1 - 1- dose 75+ series) 2015 TDAP/TD VACCINES (2 - Td or Tdap) 08/02/2019 08/02/2009 (Patient-Reported (Performed Externally)) DXA SCAN 03/01/2021 03/01/2019, 01/30, 01/01/2017 URINE MICROALBUMIN-CREATININ E RATIO (uACR) 04/10/2021 04/10/2020, 04/11/2018, 10/04/2017, Additional history exists HEMOGLOBIN A1C 11/24/2021 05/26/2021, 05/02, 02/19/2021, Additional history exists ANNUAL WELLNESS VISIT 12/23/2021 12/23/2020 , 12/23/2020, 12/18/2019, Additional history exists DIABETIC FOOT EXAM 02/19/2022 02/19/2021, 0 10/28/2020, 10/28/2020, Additional history exists LIPID PANEL 05/18/2022 05/18/2021, 10/01, 07/10/2020, Additional history exists COVID-19 Vaccine (2023-2 5 season) 2024 10/19/2020, 09/30/2020 INFLUENZA VACCINE 05/02/2025 04/02/2020, , 04/28/2019, Additional history exists Pneumococcal Vaccine 50+ Completed 03/23/2017, 03/03 ZOSTER VACCINE Completed 05/12/2018, 01/30, 08/02/2015 (Patient-Reported (Performed Externally)) LUNG CANCER SCREENING Discontinued 06/01/2018 Procedures Procedure Name Priority Date/Time Associated Diagnosis Comments POCT GLYCOSYLATED HEMOGLOBIN (HGB A1C) Routine 02/19/2021 1:19 PM EDT Uncontrolled type 2 diabetes mellitus with hyperglycemia LIPID PANEL Routine 10/28/2020 11:51 AM EDT Controlled type 2 diabetes mellitus with diabetic polyneuropathy, with long-term current use of insulin Mixed hyperlipidemia MICROALBUMIN / CREATININE URINE RATIO Routine 04/10/2020 4:11 PM EDT SCANNED - INFLUENZA 04/28/2019 SCANNED - DEXA 02/17/2019 CT CHEST LOW DOSE WO CANCER SCREENING Routine 06/01/2018 11:45 AM EDT Former very heavy cigarette smoker (more than 40 per day) from Last 3 Months or Most Recently Relevant to Health Maintenance Results * POC Glycosylated Hemoglobin (Hb A1C) (02/19/2021 1:19 PM EDT) Hemoglobin A1C 8.3 % [facility] Blood 02/19/2021 1:19 PM EDT Vikki Garcia PA-C POINT OF CARE TEST ORDERAB LES Final Result [facility]
[address] [place] [address], * Lipid Panel (10/28/2020 11:51 AM EDT) Total Cholesterol 140 0 - 200 mg/dL [facility] Comment: Cholesterol Reference Ranges (U.S. Department of Health and Human Services ATP III Classifications) Desirable <200 mg/dL Borderline High 200-239 mg/dL High Risk >240 mg/dL Triglyceride Reference Ranges (U.S. Department of Health and Human Services ATP III Classifications) Normal <150 mg/dL Borderline High 150-199 mg/dL High 200-499 mg/dL Very High >500 mg/dL HDL Reference Ranges (U.S. Department of Health and Human Services ATP III Classifcations) Low <40 mg/dl (major risk factor for CHD) High >60 mg/dl ('negative' risk factor for CHD) LDL Reference Ranges (U.S. Department of Health and Human Services ATP III Classifcations) Optimal <100 mg/dL Near Optimal 100-129 mg/dL Borderline High 130-159 mg/dL High 160-189 mg/dL Very High >189 mg/dL Triglycerides 120 0 - 150 mg/dL [facility] HDL Cholesterol 41 40 - 60 mg/dL [facility] VLDL Cholesterol Demetrius 22 5 - 40 mg/dL [facility] LDL Chol Calc (NIH) 77 0 - 100 mg/dL [facility] Blood 10/28/2020 11:5 1 AM EDT 10/28/2020 Comment:BLOOD Narrative [facility] ([facility]) - 10/29/2020 3:35 AM EDT Performed at: [address] [id number] [employer]rain Processor: Rajendra Goodwin MD, Phone: [phone] Vikki DAHL-C LAB BLOOD ORDERABLES Final Result Performing Organization Address City/Va Hospital/ZIP Co de Phone Number [facility] [address] [place] [address], [facility] [address] [place] [phone], * (ABNORMAL) Microalbumin / Creatinine Urine Ratio - (04/10/2020 4:11 PM EDT) [facility] Creatinine, Urine 138.0 Not Estab. mg/dL [facility] Microalbumin, Urine 67.2 Not Estab. ug/mL [facility] Microalbumin/Cre atinine Ratio 49(H) 0 - 29 mg/g creat [facility] Comment: Normal: 0 - 29 Moderately increased: 30 - 300 Severely increased: >300 Please note reference interval change 04/10/2020 4:11 PM EDT 04/11/2020 Comment:BLOOD Narrative [facility] ([facility]UL[facility]) - 04/12/2020 12:36 PM EDT Performed at: 02 - [address] [id number] Grain Processor: Dru Burgess PhD, Phone: [phone] Vikki DAHL-C URINE ORDERABLES Final Res ult Performing Organization Address [facility] Hospital/ZIP Co de Phone Number [facility] ([facility]) [address] [place] [address], [facility] [address] [place] [address], * SCANNED - INFLUENZA (04/28/2019) Livia Armijo DO CHART REVIEW TABS Final Result * SCANNED - DEXA (02/17/2019) Anatomical Region Laterality Modality Other Livia Armijo DO CHART REVIEW TABS Final Result * CT chest low dose wo (06/01/2018 11:45 AM EDT) Anatomical Region Laterality Modality Chest Computed Tomogra phy 06/01/2018 2:46 PM EDT Impressions 06/01/2018 4:36 PM EDT 1. Old healed granulomatous disease seen within the chest. No acute intrathoracic abnormality identified. No pulmonary mass or nodule. 2. Lung RADS Category 1-continue annual low-dose CT screening. E: 06/01/2018 This report was finalized on 06/01/2018 4:[address] Myrna Lanza MD. Narrative 06/01/2018 4:36 PM EDT EXAMINATION: CT CHEST, LOW DOSE WO CONTRAST-06/01/2018: INDICATION: Lung cancer annual screening, asymptomatic, smoker hx w/in last 15 yrs (min. 30 pack-yrs); Z87.891-Personal history of nicotine dependence, smoker. TECHNIQUE: Multiple axial CT imaging was obtained of the chest without the administration of intravenous contrast according to the low-dose screening protocol. The radiation dose reduction device was turned on for each scan per the ALARA (As Low as Reasonably Achievable) protocol. COMPARISON: NONE. FINDINGS: The thyroid is homogeneous in appearance. No mediastinal mass or adenopathy. The cardiac chambers are within normal limits. Calcification seen within the right hilar region from old healed granulomatous disease. No pericardial effusion. No bulky hilar or axillary lymphadenopathy. Small hiatal hernia. There is some scarring identified within the right middle lobe. No parenchymal consolidation, pleural effusion or pneumothorax. Some scarring identified at the left lung base. Degenerative changes seen within the spine. The visualized upper abdomen is unremarkable in appearance. Procedure Note Myrna Lanza MD - 06/01/2018 EXAMINATION: CT CHEST, LOW DOSE WO CONTRAST-06/01/2018: INDICATION: Lung cancer annual screening, asymptomatic, smoker hx w/in last 15 yrs (min. 30 pack-yrs); Z87.891-Personal history of nicotine dependence, smoker. TECHNIQUE: Multiple axial CT imaging was obtained of the chest without the administration of intravenous contrast according to the low-dose screening protocol. The radiation dose reduction device was turned on for each scan per the ALARA (As Low as Reasonably Achievable) protocol. COMPARISON: NONE. FINDINGS: The thyroid is homogeneous in appearance. No mediastinal mass or adenopathy. The cardiac chambers are within normal limits. Calcification seen within the right hilar region from old healed granulomatous disease. No pericardial effusion. No bulky hilar or axillary lymphadenopathy. Small hiatal hernia. There is some scarring identified within the right middle lobe. No parenchymal consolidation, pleural effusion or pneumothorax. Some scarring identified at the left lung base. Degenerative changes seen within the spine. The visualized upper abdomen is unremarkable in appearance. IMPRESSION: 1. Old healed granulomatous disease seen within the chest. No acute intrathoracic abnormality identified. No pulmonary mass or nodule. 2. Lung RADS Category 1-continue annual low-dose CT screening. E: 06/01/2018 This report was finalized on 06/01/2018 4:[address] Myrna Lanza MD. Angel DAHL IM CT ORDERABLES Final Result from Last 3 Months or Most Recently Relevant to Health Maintenance Insurance [place] [id number] [employer] MEDICARE ADVANTAGE Care Teams Stage Set Up Worker Relationship Specialty Start Date End Date Barrington Ahumada APRN [address] [place] [address] [place] [id number] PCP - General Family Medicine 10/06/21
== END 2025-03-16 23:59 | disposition home or self-care (01) ==
LOC: RAD 14:11
PROVIDERS: PCP Family Medicine; Visit Provider Family Medicine
DX: M16.11 Unilateral primary osteoarthritis, right hip (principal); M25.469 Effusion, unspecified knee; E11.9 Type 2 diabetes mellitus without complications; R06.00 Dyspnea, unspecified; Z95.1 Presence of aortocoronary bypass graft
CPT/HCPCS: 71046; 73562; 82043; 82570

== ENCOUNTER 2025-06-18 10:12 | Day surgery (SDC) | payer MEDICARE, SELFPAY ==
--- NOTE | 2025-06-14 17:00 | EXP.HP ---
History of Present Illness *Admission Date: 06/18/25 *History of present illness: Mrs. Mir is a an 85-year-old female who is here for diagnostic EGD. The patient does report dysphagia. She has had swallowing difficulties for over 20 years. She is uncertain whether she has had any prior endoscopy and had previously been followed at [facility]. She does report a history of gastroesophageal reflux and heartburn. She is on omeprazole 20 mg daily and still getting some breakthrough symptoms at least once a week. She also reports a dysphagia with solid foods a couple of times per week. She does have dentures but is uncertain whether these are properly fitting and she has some difficulty chewing her food thoroughly. She was diagnosed with a hiatal hernia 20 years ago. She does get a lot of gassiness and belching. She feels as if gas gets stuck in the hiatal hernia . The examination is deemed medically necessary for diagnostic EGD. The patient has been seen, interviewed and examined prior to the procedure by both myself and the anesthesia provider. [facility] Disclaimer: The information contained in this section may have been updated after the patient was seen, as this information can be updated by other users. Medical History UGIB (upper gastrointestinal bleed) Anginal equivalent Pharyngitis History of 2019 novel coronavirus disease (COVID-19) Atelectasis of right lung Abnormality of lung on CXR Pulmonary emphysema COPD mixed type History of COPD Stopped smoking with greater than 30 pack year history Allergic rhinitis, unspecified Dyspnea on exertion Obesity (BMI 30-39.9) Hypothyroidism (acquired) Diabetes mellitus Surgical History History of open heart surgery History of hysterectomy History of colonoscopy Hx of cholecystectomy History of cardiac cath Family History Other Cancer Diabetes Heart attack Hyperlipidemia Hypertension Kidney disease Social History Smoking Status: Former smoker tobacco type: cigarettes packs per day: 1 alcohol intake: never substance use type: denies use current occupational status: retired Travel in the last 8 weeks?: None household members: none housing: house caffeine: Yes Have you lived/traveled outside US in past 30 days?: No Contact w/someone who lives/traveled outside US past 30 days?: No Exposure to someone with infectious disease in past 14 days?: No Do you have a fever (greater than 100.4 F or 38 C)?: No Have you tested positive for COVID-19?: No Exposed to someone with COVID-19 in past 14 days?: No Do you have a sore throat?: No Do you have a cough?: No Do you have any weakness?: No Are you experiencing any nausea/vomitting?: No Do you have any diarrhea?: No Are you experiencing any unusual bleeding?: No Do you have any muscle aches/pain?: No Do you have any abdominal pain?: No Are you experiencing loss of taste or smell?: No Other Medical History Have you received the Flu Vaccine for this season: No Have you received the Pneumonia Vaccine: No Review of Systems Review of Systems Review of systems (narrative): Negative *Cardiovascular Comments: Negative *Gastrointestinal Comments: Negative *Genitourinary Comments: Negative *Musculoskeletal Comments: Negative *Neurologic Comments: Negative Meds Home Medications and Allergies Home Medications ?Medication ?Instructions ?Recorded ?Confirmed ?Type blood-glucose meter 01/20/22 06/18/25 History lancets 30 gauge (Droplet Lancets) #100 ea 01/20/22 06/18/25 Rx blood-glucose meter (Contour Next #1 ea 03/23/22 06/18/25 Rx Glucose Meter kit) blood sugar diagnostic (Blood #50 ea 09/02/22 06/18/25 Rx Glucose Test strips) pen needle, diabetic 32 gauge x #100 ea 04/16/23 06/18/25 Rx 1/4 (Droplet Pen Needle) blood sugar diagnostic (Contour #100 ea 04/19/23 06/18/25 Rx Test Strips) albuterol sulfate 90 mcg/actuation 2 inh inhalation Q6H PRN shortness 09/15/24 06/18/25 Rx aerosol inhaler of breath or wheezing 90 days #8.5 grams aspirin 81 mg tablet,delayed 81 mg PO DAILY CAD #90 tabs 09/15/24 06/18/25 Rx release montelukast 10 mg tablet See Rx Instructions .Route 09/15/24 06/18/25 Rx .COMPLEX #90 tabs pravastatin 40 mg tablet 40 mg PO HS Cholesterol #90 tabs 09/15/24 06/18/25 Rx ropinirole 1 mg tablet 1 mg PO HS #90 tabs 09/15/24 06/18/25 Rx metoprolol succinate 50 mg 50 mg PO DAILY #90 tabs 01/01/25 06/18/25 Rx tablet,extended release 24 hr potassium chloride 20 mEq See Rx Instructions .Route 01/29/25 06/18/25 Rx tablet,extended release(part/cryst) .COMPLEX #90 tabs tiotropium 2.5 mcg-olodaterol 2.5 2 puff inhalation DAILY 90 days #4 01/29/25 06/18/25 Rx mcg/actuation mist for inhalation grams (Stiolto Respimat) levothyroxine 100 mcg tablet See Rx Instructions .Route 02/08/25 06/18/25 Rx .COMPLEX #90 tabs acetaminophen 500 mg tablet 500 mg PO Q6H PRN pain #60 tabs 03/16/25 06/18/25 Rx (Tylenol Extra Strength) insulin glargine 100 unit/mL (3 30 unit .Route BID 03/16/25 06/18/25 History mL) subcutaneous pen (Lantus Solostar U-100 Insulin) omeprazole 20 mg capsule,delayed 20 mg PO DAILY 03/16/25 06/18/25 History release Lactobacillus rhamnosus-Bifidobac. 1 cap PO DAILY 04/16/25 06/18/25 History animalis 3 billion cell capsule (Matomy Money) empagliflozin 10 mg tablet See Rx Instructions .Route 04/23/25 06/18/25 Rx (Jardiance) .COMPLEX #90 tabs allopurinol 300 mg tablet See Rx Instructions .Route 04/26/25 06/18/25 Rx .COMPLEX #90 tabs furosemide 20 mg tablet 30 mg PO BID 06/15/25 06/18/25 History New Prescriptions to Start Prescriptions: Allergies Allergy/AdvReac Type Severity Reaction Status Date / Time No Known Allergies Allergy Verified 06/18/25 10:46 Exam *Routine HEENT Exam Head: Present normocephalic Eye: Present EOMI and PERRL ENT: Present mucous membranes moist *Routine Neck Exam Neck: Present supple *Routine Respiratory Exam Respiratory: Present CTA bilaterally *Routine Cardiovascular Exam Cardiovascular: Present RRR *Routine Abdominal Exam Abdominal: Present soft and normoactive bowel sounds; Absent tenderness *Routine Rectal Exam Rectal:: deferred *Routine Genitalia Exam Genitalia:: deferred *Routine Extremities Exam Extremities: Absent cyanosis, clubbing or edema *Routine Skin Exam Skin: Present warm; Absent rash *Routine Neurological Exam Neurological: Present alert and oriented X3 Assessment and Plan *Assessment and plan (1) Choking: Status: Acute Category: Medical Code(s): T17.308A - Unspecified foreign body in larynx causing other injury, initial encounter (2) Dysphagia: Status: Acute Category: Medical Code(s): R13.10 - Dysphagia, unspecified (3) Belching: Status: Acute Category: Medical Code(s): R14.2 - Eructation (4) Heartburn: Status: Acute Category: Medical Code(s): R12 - Heartburn (5) Hiatal hernia: Status: Acute Category: Medical Code(s): K44.9 - Diaphragmatic hernia without obstruction or gangrene Plan A/P: 1. Choking/dysphagia with belching/gas, heartburn and history of hiatal hernia is the preprocedural diagnosis. The patient will be anesthetized/sedated using MAC sedation. The patient has been seen and examined. Cardiac and lung assessment prior to the examination is stable. Proceed with planned diagnostic EGD.
[2025-06-15 10:58] VITALS: BMI 31.2
--- NOTE | 2025-06-18 06:58 | HMH.PROCNOTE ---
[facility] Procedure Note Date: 06/18/25 Time: 11:46 Procedure Note:: Upper Endoscopy Procedure Report: Esophagogastroduodenoscopy with cold biopsies and TTS balloon dilation Endoscopost: Jaime Candelario II, MD Referring Physician: PAULA Chavarria Date of Procedure: June 18, 2025 Equipment: Olympus GIF-1100 standard upper endoscope Sedation: MAC sedation Indications: Mrs. Mir is a an 85-year-old female who is here for diagnostic EGD. The patient does report dysphagia. She has had swallowing difficulties for over 20 years. She is uncertain whether she has had any prior endoscopy and had previously been followed at [facility]. She does report a history of gastroesophageal reflux and heartburn. She is on omeprazole 20 mg daily and still getting some breakthrough symptoms at least once a week. She also reports a dysphagia with solid foods a couple of times per week. She does have dentures but is uncertain whether these are properly fitting and she has some difficulty chewing her food thoroughly. She was diagnosed with a hiatal hernia 20 years ago. She does get a lot of gassiness and belching. She feels as if gas gets stuck in the hiatal hernia . The patient reports no bloating or nausea. She reports regular bowel function. The examination is deemed medically necessary for diagnostic EGD. Procedure: Prior to the procedure, a history and physical exam was performed, and patient's medications and allergies were reviewed. The risks, benefits and alternatives of the sedation and procedure were discussed with the patient. All questions were answered and informed consent was obtained. The patient was brought to the procedure room. Patient identification and proposed procedure were verified by the physician and the nurse. The patient was placed in a left lateral decubitus position and the scope was passed under direct vision. Throughout the procedure, the patient's blood pressure, pulse, and oxygen saturations were monitored continuously. The upper GI endoscopy was accomplished without difficulty. The patient tolerated the procedure well. Findings: The scope was passed directly into the upper esophagus and advanced to the third portion of the duodenum. The post bulbar duodenum, ampulla and duodenal bulb were normal with normal mucosa and conniventes. 2 cold biopsies were taken from the second portion of the duodenum for the disaccharidase assay. The scope was withdrawn through a normal duodenal bulb and pylorus into the stomach. There was bile reflux with mild linear reactive gastropathy of the antrum. The body and fundus of the stomach were normal. Upon retroflexion there was a small 2 cm hiatal hernia. Cold biopsies were taken from the antrum. The scope was then withdrawn into the esophagus. There was no evidence of reflux esophagitis or Sparks's. There were no rings, strictures, corrugation or furrowing. There were tertiary contractions and evidence of moderate esophageal dysmotility. The entire esophagus was dilated to 60 Tristanian/20 mm with a TTS hydrostatic balloon. There was minimal resistance with dilation. The remainder of the esophageal mucosa was normal. Impression: 1. Nonerosive GERD with moderate esophageal dysmotility and very small 2 cm hiatal hernia 2. Bile reflux with mild linear reactive gastropathy Plan: I will follow-up the biopsies and disaccharidase assay. The patient does have gas driven bile reflux with associated esophageal dysmotility. Esophageal dysmotility is when the esophagus does not move/propel food and liquid to the stomach properly and has to do with esophageal muscular movements and peristalsis.
[2025-06-18 10:52] VITALS: BP 140/64; PULSE 60; RESP 16; TEMP 36.1; O2SAT 96; BMI 31.2
[2025-06-18 11:02] LABS: POC Glucose,Bedside 83 gm/dL (70-110)
[2025-06-18] MEDS: LACTATED RINGERS 1000ML 1,000 ML 50 ML IV (11:02)
--- NOTE | 2025-06-18 11:07 | P.PNANES_ITS ---
[facility] Disclaimer: The information contained in this section may have been updated after the patient was seen, as this information can be updated by other users. Medical History UGIB (upper gastrointestinal bleed) Anginal equivalent Pharyngitis History of 2019 novel coronavirus disease (COVID-19) Atelectasis of right lung Abnormality of lung on CXR Pulmonary emphysema COPD mixed type History of COPD Stopped smoking with greater than 30 pack year history Allergic rhinitis, unspecified Dyspnea on exertion Obesity (BMI 30-39.9) Hypothyroidism (acquired) Diabetes mellitus Surgical History History of open heart surgery History of hysterectomy History of colonoscopy Hx of cholecystectomy History of cardiac cath Family History Other Cancer Diabetes Heart attack Hyperlipidemia Hypertension Kidney disease Social History Smoking Status: Former smoker tobacco type: cigarettes packs per day: 1 alcohol intake: never substance use type: denies use current occupational status: retired Travel in the last 8 weeks?: None household members: none housing: house caffeine: Yes Have you lived/traveled outside US in past 30 days?: No Contact w/someone who lives/traveled outside US past 30 days?: No Exposure to someone with infectious disease in past 14 days?: No Do you have a fever (greater than 100.4 F or 38 C)?: No Have you tested positive for COVID-19?: No Exposed to someone with COVID-19 in past 14 days?: No Do you have a sore throat?: No Do you have a cough?: No Do you have any weakness?: No Are you experiencing any nausea/vomitting?: No Do you have any diarrhea?: No Are you experiencing any unusual bleeding?: No Do you have any muscle aches/pain?: No Do you have any abdominal pain?: No Are you experiencing loss of taste or smell?: No [facility] Anesthesia Checklist Patient Identification Patient Identification: Arm Band and Verbal (Name & ) Structural Data Admitted From: Home Planned Operative Procedure/s: EGD Consent for Planned Operative Procedure(s) Verified: Yes Verified Documents: Surgical Consent and History and Physical NPO Status Verified Time NPO: 01:30 Additional verifications Anesthesia Reactions: No Previous Colonoscopy: Yes Airway Assessment Mallampati Score:: Class II Dentition: Edentulous Neurological Assessment Level of Consciousness: Awake, Alert and Appropriate Hx Seizures: No Numbness or tingling in extremities: No Anesthesia Plan Anesthesia Risk discussed: Yes Anesthesia Plan: Verified ASA Class: III Anesthesia Type: MAC
[2025-06-18 11:46] VITALS: BP 94/52; PULSE 55; RESP 18; TEMP 36.1; O2SAT 93
[2025-06-18 12:01] VITALS: BP 96/57; PULSE 56; RESP 16; O2SAT 94
[2025-06-18 12:16] VITALS: BP 114/66; PULSE 52; RESP 16; O2SAT 96
[2025-06-21 14:17] LABS: Interpretation Notes (.); Lactase 38.19 (>/= 14.0); Maltase 141.76 (>/= 110.0); Palatinase 11.44 (>/= 8.5); Reference Notes (.); Sucrase 38.4 (>/= 25.0)
== END 2025-06-18 12:16 | disposition home or self-care (01) ==
PROVIDERS: PCP Family Medicine; Visit Provider Internal Medicine Gastroenterology
PROC: 0DJ08ZZ Inspection of Upper Intestinal Tract, Via Natural or Artificial Opening Endoscopic (ICD-10-PCS; CPT 43239; principal; 2025-06-18 12:00)
DX: K21.9 Gastro-esophageal reflux disease without esophagitis (principal); K22.4 Dyskinesia of esophagus; K31.89 Other diseases of stomach and duodenum; K44.9 Diaphragmatic hernia without obstruction or gangrene; J44.9 Chronic obstructive pulmonary disease, unspecified; E03.9 Hypothyroidism, unspecified; E11.9 Type 2 diabetes mellitus without complications; Z79.4 Long term (current) use of insulin; Z79.84 Long term (current) use of oral hypoglycemic drugs; Z87.891 Personal history of nicotine dependence; Z79.82 Long term (current) use of aspirin
CPT/HCPCS: 43239; 43249; 82657; 82962; 88305; C1726; J2003; J2704; J7120

== ENCOUNTER 2025-07-11 07:26 | Outpatient (CLI) | payer MEDICARE, SELFPAY ==
[2025-07-11 17:43] LABS: Hematocrit 48.3 % (37.0-47.0); Hemoglobin 16.0 g/dL (12.2-16.2); Immature Granulocytes % 0.4 %; Mean Corpuscular HGB Conc 33.1 g/dL (31.8-35.4); Mean Corpuscular Hemoglobin 31.3 pg (27.0-31.2); Mean Corpuscular Volume 94.3 fl (81-99); Nucleated Red Blood Cells % 0 %; Platelet Count 248 K/mm3 (142-424); Red Blood Count 5.12 M/mm3 (4.20-5.40); Red Cell Distribution Width-SD 43.2 fL; White Blood Count 13.6 K/mm3 (4.8-10.8)
[2025-07-11 18:35] LABS: Alanine Aminotransferase 19 U/L (12-78); Albumin Level 4.8 g/dl (3.5-5.0); Albumin/Globulin Ratio 1.5 (1.1-1.8); Alkaline Phosphatase 114 U/L (38-126); Anion Gap 19.9 mEq/L (5-15); Aspartate Amino Transferase 28 U/L (14-36); Bilirubin,Total 1.0 mg/dl (0.2-1.3); Blood Urea Nitrogen 26 mg/dl (7-17); Calcium 9.6 mg/dl (8.4-10.2); Carbon Dioxide 27 mmol/L (22.0-30.0); Chloride 99 mmol/L (98-107); Creatinine,Serum 1.40 mg/dl (0.52-1.04); Estimated Glomerular Filt Rate 36 ml/min (>60); GFR (African American) 43 ML/MIN (>60); Globulin 3.3 g/dL (1.3-3.2); Glucose 121 mg/dl (74-100); Potassium 4.9 mmoL/L (3.5-5.1); Sodium 141 mmol/L (136-145); Total Protein,Serum 8.1 g/dl (6.3-8.2)
[2025-07-11 19:12] LABS: Hemoglobin A1C 7.5 % (4.0-6.0)
--- OUTSIDE RECORDS SUMMARY | 2025-07-13 07:30 | XMS_ITS ---
Laboratory report Created on: June 23, 2025 CHRISSYDWAINEMICHELLE : 1940 Sex: Female Author Organization Unknown PROBLEMS Problems List Code Description RESULTS Laboratory Orders Date Order Code Test 2025-06-18 [id number] DISACCHARIDASE D ETER. W/INTERP Laboratory Results Date LOINC Test Value Unit Reference Range Interpre tation 2025-06-18 1942-2 LACTASE 38.19 UMOL/MIN/G PROT >/= 14.0 2025-06-18 1815-0 MALTASE 141.76 UMOL/MIN/G PROT >/= 110.0 2025-06-18 41343-6 PALATINASE 11.44 UMOL/MIN/G PROT >/= 8.5 2025-06-18 52959-0 SUCRASE 38.4 UMOL/MIN/G PROT >/= 25.0 2025-06-18 78328-7 INTERPRETATION NOTES 2025-06-18 36503-9 DISCLAIMER NOTES 2025-06-18 11680-4 REFERENCE NOTES
--- OUTSIDE RECORDS SUMMARY | 2025-07-13 07:30 | XMS_ITS ---
Laboratory report Created on: July 03, 2025 CHRISSYDWAINEMICHELLE : 1940 Sex: Female Author Organization Unknown PROBLEMS Problems List Code Description RESULTS Laboratory Orders Date Order Code Test 2025-06-18 [id number] DISACCHARIDASE D ETER. W/INTERP Laboratory Results Date LOINC Test Value Unit Reference Range Interpre tation 2025-06-18 1942-2 LACTASE 38.19 UMOL/MIN/G PROT >/= 14.0 2025-06-18 1815-0 MALTASE 141.76 UMOL/MIN/G PROT >/= 110.0 2025-06-18 71839-6 PALATINASE 11.44 UMOL/MIN/G PROT >/= 8.5 2025-06-18 60948-5 SUCRASE 38.4 UMOL/MIN/G PROT >/= 25.0 2025-06-18 20682-4 INTERPRETATION NOTES 2025-06-18 54364-5 DISCLAIMER NOTES 2025-06-18 34043-9 REFERENCE NOTES
== END 2025-07-11 23:59 ==
LOC: LAB.DROPOF 07-13 07:27
PROVIDERS: PCP Family Medicine; Visit Provider Family Medicine
DX: E11.42 Type 2 diabetes mellitus with diabetic polyneuropathy (principal); Z79.4 Long term (current) use of insulin
CPT/HCPCS: 80053; 83036; 85025

== ENCOUNTER 2025-07-17 11:35 | Outpatient (CLI) | payer MEDICARE, SELFPAY ==
--- OUTSIDE RECORDS SUMMARY | 2025-07-18 18:35 | XMS_ITS | Referral Summary ---
Author Organization [employer] ([place], [place], [place], [place], [place]) Address [address] [place] [address] Care Team Providers Care Lead Refiner Name Role Phone Unavailable Primary Care Provider [...]
--- OUTSIDE RECORDS SUMMARY | 2025-07-18 18:35 | XMS_ITS | Clinical Summary ---
Author Organization [facility] Address [address] [place] [address] Care Team Providers Care Group Leader Wafer Polishing Name Role Phone Ivonne Vasquez APRN Primary Care Provider [phone] Allergies No known active allergies Medications Albuterol [...] daily. Active cholecalciferol (Vitamin D-3) 250 MCG (46044 UT) capsule Take 1 capsule by mouth [...] chronic kidney disease 03/16/2025 Other hyperlipidemia 03/16/2025 Social History Tobacco Use Types Packs/Day Years [...] Wellness (AWV) 1940 [facility]-/Child/Adol SDOH Screenings 1940 Diabetes: Dental Exam 1950 [facility]- SDOH Screenings 1958 [facility]-Adult SDOH Screenings 1958 [facility]-DTaP,Tdap,and Td Vaccines (1 - Tdap) 1959 [facility]-RSV Vaccine: 60+ Years or (1 - 1-dose 75+ series) 2015 [facility]-Zoster Vaccines (3 of 3) 07/07/2018 05/12/2018, 02/14/2016 [facility]-Diabetes: Hemoglobin A1C 08/19/2021 02/19/2021, 10/28/2020, 07/10/2020, Additional history exists [id number] Vaccine (2024- season) 2025 05/10/2024, 06/13/2021, 10/19/2020, Additional history exists [facility]-Influenza Vaccine (#1) 04/02/202505/10, 05/25/2023, 04/08/2021, Additional history exists [facility]-Pneumococcal Vaccine: 50+ Years Completed 12/15/2022, 03/23/2017, 03/21/2016 [facility]-Obesity Intervention Completed 03/16/2025 HPV Vaccines (No Doses Required) Completed [facility]-HIB Vaccines Aged Out No longer e [...] patient's age to complete this topic Insurance JEFFREY Sifuentes [id number] [facility] MEDICARE Care Teams Group Leader Wafer Polishing Relationship Specialty Start Date End Date Ivonne Vasquez APRN [address] [place] [address] PCP - General 06/23/24
--- OUTSIDE RECORDS SUMMARY | 2025-07-18 18:35 | XMS_ITS | Clinical Summary ---
Author Organization [facility] Address [address] [place] [address] Care Team Providers Care Customer Support Specialist Name Role Phone Barrington Ahumada APRN Primary Care Provider [phone] Allergies No known active allergies Medications aspirin [...] 06/01/20 19 Active Lancets (ONETOUCH DELICA PLUS [id number] DIRECT[facility] TO TEST BLOOD SUGAR [...] 12/03/19 21 Active Insulin Pen Needle (Pen [place]) 31G X 5 MM misc 1 each [...] Immunizations Immunization Administration Dates Next Due COVID-19 (Kollabora) Purple Cap Monovalent 10/20/19,09/30/2020 FLUAD TRI 65YR+ [...] or Tdap) 08/02/2019 08/02/2009 (Patient-Reported (Performed Externally)) COVID-19 Vaccine (3 - Pfizer risk series) 11/16/2020 10/19/2020, 09/30/2020 DXA SCAN 03/01/2021 03/01/2019, 01/30, 01/01/2017 URINE MICROALBUMIN-CREATININ E RATIO (uACR) 04/10/2021 04/10/2020, 04/11/2018, 10/04/2017, Additional history exists HEMOGLOBIN A1C 11/24/2021 05/26/2021, 05/02, 02/19/2021, Additional history exists ANNUAL WELLNESS VISIT 12/23/2021 12/23/2020 , 12/23/2020, 12/18/2019, Additional history exists DIABETIC FOOT EXAM 02/19/2022 02/19/2021, 0 10/28/2020, 10/28/2020, Additional history exists LIPID PANEL 05/18/2022 05/18/2021, 10/01, 07/10/2020, Additional history exists INFLUENZA VACCINE 03/02/2025 04/02/2020, , 04/28/2019, Additional history exists Pneumococcal [...] 1:19 PM EDT) Hemoglobin A1C 8.3 % [facility] Blood 02/19/2021 1:19 PM EDT Vikki Garcia PA-C POINT OF CARE TEST ORDERAB LES Final Result [facility]
[address] [place] [address], * Lipid Panel (10/28/2020 11:51 AM EDT) [...] 10/29/2020 3:35 AM EDT Performed at: [address] [address] [place] [id number] Line Producer: Rajendra Goodwin MD, Phone: [phone] Vikki DAHL-[facility] LAB BLOOD ORDERABLES Final Result Performing Organization Address [facility]/ZIP Co de Phone Number [facility] [address] [place] [address], [facility] [address] [place] [address], * (ABNORMAL) Microalbumin / Creatinine Urine Ratio - (04/10/2020 4:11 PM EDT) [facility] Creatinine, Urine 138.0 Not Estab. mg/dL [facility] Microalbumin, Urine 67.2 Not Estab. ug/mL [facility] Microalbumin/Cre atinine Ratio 49(H) 0 - 29 mg/g creat [facility] Comment: Normal: 0 - 29 Moderately increased: 30 - 300 Severely increased: >300 Please note reference interval change 04/10/2020 4:11 PM EDT 04/11/2020 Comment:BLOOD Narrative [facility] (AMBULATORY) - 04/12/2020 12:36 PM EDT Performed at: 02 - [facility] [address] [place] [id number] Line Producer: Dru Burgess PhD, Phone: [phone] Vikki DAHL-[facility] URINE ORDERABLES Final Res ult Performing Organization Address [facility]/ZIP Co de Phone Number [facility] [address] [place] [address], [facility] [address] [place] [address], * SCANNED - INFLUENZA (04/28/2019) Livia Armijo [...] Most Recently Relevant to Health Maintenance Insurance [facility] JEFFREY KIRBY [id number] [employer] MEDICARE ADVANTAGE Care Teams Customer Support Specialist Relationship Specialty Start Date End Date Barrington Ahumada APRN [address] [place] [address] [place] [place] [address] PCP - General Family Medicine 10/06/21
--- OUTSIDE RECORDS SUMMARY | 2025-07-18 18:35 | XMS_ITS | Clinical Summary ---
Author Organization [employer] ([place], [place], [place], [place], [place]) Address [address] [place] [address] Care Team Providers Care Restaurant Mgr Name Role Phone Unavailable Primary Care Provider [...]
== END 2025-07-17 23:59 | disposition home or self-care (01) ==
LOC: LAB.DROPOF 07-18 18:33
PROVIDERS: PCP Family Medicine; Visit Provider Family Medicine
DX: N39.0 Urinary tract infection, site not specified (principal)
CPT/HCPCS: 87086